=== PATIENT | male | born 1975 | race American Indian/Alaskan Native ===

== ENCOUNTER 2017-10-09 18:53 | Emergency (ER) | payer OTHER ==
[2017-10-09 19:07] VITALS: BP 147/99
[2017-10-09 19:30] LABS: Basophils % (Auto) 1.2 % (0.0-1.8); Eosinophils % (Auto) 2.5 % (0.0-4.3); Hematocrit 42.1 % (35.5-45.6); Hemoglobin 13.8 gm/dl (11.8-15.2); Mean Corpuscular HGB Conc 33 % (32-34); Mean Corpuscular Hemoglobin 29 pg (28-32); Mean Corpuscular Volume 88 fl (84-94); Platelet Count 294 K/mm3 (140-440); Red Blood Count 4.81 M/mm3 (3.65-5.03); Red Cell Distribution Width 14.3 % (13.2-15.2); White Blood Count 7.1 K/mm3 (4.5-11.0)
[2017-10-09 19:44] LABS: Anion Gap 22 mmol/L; BUN/Creatinine Ratio 14; Blood Urea Nitrogen 14 mg/dL (9-20); Calcium 9.8 mg/dL (8.4-10.2); Carbon Dioxide 28 mmol/L (22-30); Chloride 96.8 mmol/L (98-107); Glucose 96 mg/dL (75-100); Potassium 4.5 mmol/L (3.6-5.0); Sodium 142 mmol/L (137-145)
== END 2017-10-09 21:13 | disposition left against medical advice (07) ==
LOC: ED 18:53
DX: R07.9 Chest pain, unspecified (principal); Z53.21 Procedure and treatment not carried out due to patient leaving prior to being seen by health care provider
CPT/HCPCS: 36415; 80048; 84484; 85025; 93005; 93010

== ENCOUNTER 2017-12-01 19:32 | Emergency (ER) | payer SELFPAY | END 2017-12-01 20:40 | disposition left against medical advice (07) | LOC: ED 19:32 | DX: R03.0 Elevated blood-pressure reading, without diagnosis of hypertension (principal); Z53.21 Procedure and treatment not carried out due to patient leaving prior to being seen by health care provider ==

== ENCOUNTER 2018-05-03 17:20 | Emergency (ER) | payer SELFPAY ==
[2018-05-03 17:29] VITALS: BP 134/91
[2018-05-03] MEDS ORDERED: BENADRYL PO ONE (18:12)
[2018-05-03] MEDS ORDERED: REGLAN PO ONE (18:12)
[2018-05-03] MEDS ORDERED: MOTRIN PO ONE (18:12)
[2018-05-03] MEDS ORDERED: DECADRON PO ONE (18:13)
--- NOTE | 2018-05-03 18:21 | Emergency Department Report ---
ED Headache HPI - General Chief Complaint: Headache Stated Complaint: HEADACHE/BLURRED VISION Time Seen by Provider: 05/03/18 17:38 Source: patient Exam Limitations: no limitations - History of Present Illness Initial Comments: Mr Griffin is a 42 year-old man with hx of HTN who presents with MCLEOD. Frontal MCLEOD for about 2 days. Worse this morning and today. has beenhavign allergies and sinus congestion. Hurts above his eyes. No weakness, no tingling. Has some "blurred vision that corrects when i refocus." No other complaints. No fever. Timing/Duration: 24 hours Quality: mild, moderate Head Injury Location: frontal Recent Head Trauma: no recent headache/trauma Associated Symptoms: nasal congestion, nasal drainage, sinus infection Allergies/Adverse Reactions: Allergies sulfamethoxazole [From Bactrim] Allergy (Verified 05/03/18 17:27) Itching trimethoprim [From Bactrim] Allergy (Verified 05/03/18 17:27) Itching Home Medications: Ambulatory Orders Fluticasone [Flonase] 1 spray NS QDAY #1 bottle 12/02/15 Amoxicillin/K Clav Tab [Augmentin 875 mg] 1 tab PO Q12HR #20 tab 01/01/16 ED Review of Systems ROS: Stated complaint: HEADACHE/BLURRED VISION Other details as noted in HPI Comment: All other systems reviewed and negative ED Past Medical Hx - Past Medical History Previous Medical History?: Yes Hx Hypertension: Yes Hx CVA: No Hx Heart Attack/AMI: No Hx Congestive Heart Failure: No Hx Diabetes: No Hx Deep Vein Thrombosis: No Hx Pulmonary Embolism: No Hx GERD: No Hx Asthma: Yes - Surgical History Past Surgical History?: Yes Additional Surgical History: hernia repair - Social History Smoking Status: Never Smoker Substance Use Type: Alcohol - Medications Home Medications: Home Medications Medication Instructions Recorded Confirmed Last Taken Type Fluticasone [Flonase] 1 spray NS QDAY #1 bottle 12/02/15 01/01/16 12/30/15 06: 00 Rx Amoxicillin/K Clav Tab [Augmentin 1 tab PO Q12HR #20 tab 01/01/16 Unknown Rx 875 mg] ED Physical Exam - General Limitations: No Limitations General appearance: alert, in no apparent distress - Head Head exam: Present: atraumatic, normocephalic, normal inspection - Eye Eye exam: Present: normal appearance, PERRL, EOMI, conjunctival injection. Absent: scleral icterus - ENT ENT exam: Present: normal exam, normal orophraynx, mucous membranes moist, other (mild ttp over frontal sinuses) - Neck Neck exam: Present: normal inspection. Absent: tenderness, meningismus, lymphadenopathy, thyromegaly - Respiratory Respiratory exam: Present: normal lung sounds bilaterally, respiratory distress - Cardiovascular Cardiovascular Exam: Present: regular rate, normal rhythm - Extremities Exam Extremities exam: Present: normal inspection. Absent: tenderness - Neurological Exam Neurological exam: Present: alert, oriented X3, CN II-XII intact, normal gait. Absent: motor sensory deficit - Psychiatric Psychiatric exam: Present: normal affect, normal mood - Skin Skin exam: Present: warm, dry, intact ED Course Vital Signs 05/03/18 17:27 Temperature 98.2 F Pulse Rate 72 Respiratory 18 Rate Blood Pressure 134/91 O2 Sat by Pulse 98 Oximetry ED Medical Decision Making - Medical Decision Making Mr Mello is a 42 year-old man who presents with MCLEOD. MCLEOD for two days. Worse today. no neuro symptoms. Frontal MCLEOD. Has been having sinus pressure, congestion , allergies. Recently treated for sinus infection. No fever. Exam with mild forehead TTP. Mild conjunctival injection. neuro intact. Suspect this is sinus headache. Much less likely mass or bleed based on history and risk factors. no neuro symptoms or deficit. (baseline worse vision in L eye, not wearing his glasses). Given MCLEOD cocktail. Recommend taking OTC antihistamine as he is recommended but has not been taking. Also discussed using nasal rinse to sinusitis, allergic rhinitis and sinus headaches. Reports feeling better. DC to home with care plan as above. he and his endorse understanding of what was done today, and that we did not pursue imaging or labs, as they are not indicated today. He will return for change in symptoms. Critical care attestation.: If time is entered above; I have spent that time in minutes in the direct care of this critically ill patient, excluding procedure time. ED Disposition Clinical Impression: Sinus headache Disposition: DC-01 TO HOME OR SELFCARE Is pt being admited?: No Condition: Stable Instructions: Loratadine (By mouth), Sinusitis (ED), Acute Headache (ED) Referrals: PRIMARY CARE,MD [Primary Care Provider] - 3-5 Days
== END 2018-05-03 18:58 | disposition home or self-care (01) ==
LOC: ED 17:20
DX: R51 Headache (principal); R09.81 Nasal congestion; H53.8 Other visual disturbances; I10 Essential (primary) hypertension; J45.909 Unspecified asthma, uncomplicated; Z88.2 Allergy status to sulfonamides
CPT/HCPCS: 99282; J8540

== ENCOUNTER 2018-08-01 07:31 | Emergency (ER) | payer SELFPAY ==
[2018-08-01 08:00] VITALS: BP 146/98
--- NOTE | 2018-08-01 10:06 | Emergency Department Report ---
ED General Adult HPI - General Chief complaint: High BP Stated complaint: BLOOD PRESSURE Time Seen by Provider: 08/01/18 09:58 Source: patient Mode of arrival: Ambulatory Limitations: No Limitations - History of Present Illness Initial comments: Patient presents to the emergency department with a chief complaint of hypertension. Patient states he is on amlodipine 10 mg daily has been out of his medication for the last couple days and will not be able to see his physician anytime soon. -: Gradual Radiation: non-radiation Severity scale (0 -10): 0 Consistency: constant Improves with: none Worsens with: none Associated Symptoms: denies other symptoms Treatments Prior to Arrival: none - Related Data Previous Rx's Medication Instructions Recorded Last Taken Type Fluticasone [Flonase] 1 spray NS QDAY #1 bottle 12/02/15 12/30/15 06:00 Rx Amoxicillin/K Clav Tab [Augmentin 1 tab PO Q12HR #20 tab 01/01/16 Unknown Rx 875 mg] amLODIPine [Norvasc] 10 mg PO DAILY #30 tab 08/01/18 Unknown Rx Allergies Allergy/AdvReac Type Severity Reaction Status Date / Time sulfamethoxazole Allergy Itching Verified 05/03/18 17:27 [From Bactrim] trimethoprim [From Bactrim] Allergy Itching Verified 05/03/18 17:27 ED Review of Systems ROS: Stated complaint: BLOOD PRESSURE Other details as noted in HPI Comment: All other systems reviewed and negative Constitutional: denies: chills, fever Eyes: denies: eye pain, eye discharge, vision change ENT: denies: ear pain, throat pain Respiratory: denies: cough, shortness of breath, wheezing Cardiovascular: denies: chest pain, palpitations Endocrine: no symptoms reported Gastrointestinal: denies: abdominal pain, nausea, diarrhea Genitourinary: denies: urgency, dysuria Musculoskeletal: denies: back pain, joint swelling, arthralgia Skin: denies: rash, lesions Neurological: denies: headache, weakness, paresthesias Psychiatric: denies: anxiety, depression Hematological/Lymphatic: denies: easy bleeding, easy bruising ED Past Medical Hx - Past Medical History Hx Hypertension: Yes Hx CVA: No Hx Heart Attack/AMI: No Hx Congestive Heart Failure: No Hx Diabetes: No Hx Deep Vein Thrombosis: No Hx Pulmonary Embolism: No Hx GERD: No Hx Asthma: Yes - Surgical History Additional Surgical History: hernia repair - Social History Substance Use Type: Alcohol - Medications Home Medications: Home Medications Medication Instructions Recorded Confirmed Last Taken Type Fluticasone [Flonase] 1 spray NS QDAY #1 bottle 12/02/15 01/01/16 12/30/15 06: 00 Rx Amoxicillin/K Clav Tab [Augmentin 1 tab PO Q12HR #20 tab 01/01/16 Unknown Rx 875 mg] amLODIPine [Norvasc] 10 mg PO DAILY #30 tab 08/01/18 Unknown Rx ED Physical Exam - General Limitations: No Limitations General appearance: alert, in no apparent distress - Head Head exam: Present: atraumatic, normocephalic - Eye Eye exam: Present: normal appearance, PERRL, EOMI - ENT ENT exam: Present: mucous membranes moist - Neck Neck exam: Present: normal inspection - Respiratory Respiratory exam: Present: normal lung sounds bilaterally. Absent: respiratory distress, wheezes, rales, rhonchi - Cardiovascular Cardiovascular Exam: Present: regular rate, normal rhythm. Absent: systolic murmur, diastolic murmur, rubs, gallop - GI/Abdominal GI/Abdominal exam: Present: soft, normal bowel sounds. Absent: distended, tenderness - Rectal Rectal exam: Present: deferred - Extremities Exam Extremities exam: Present: normal inspection - Back Exam Back exam: Present: normal inspection - Neurological Exam Neurological exam: Present: alert, oriented X3, CN II-XII intact. Absent: motor sensory deficit - Psychiatric Psychiatric exam: Present: normal affect, normal mood - Skin Skin exam: Present: warm, dry, intact, normal color. Absent: rash ED Course Vital Signs 08/01/18 07:56 Temperature 98.3 F Pulse Rate 71 Respiratory 17 Rate Blood Pressure 146/98 O2 Sat by Pulse 98 Oximetry ED Medical Decision Making - Medical Decision Making Discussed plan of care with patient Patient had a prescription bottle present which was empty with the prescribing physician being Dr. Rizvi of [facility] Critical care attestation.: If time is entered above; I have spent that time in minutes in the direct care of this critically ill patient, excluding procedure time. ED Disposition Clinical Impression: Hypertension Disposition: DC- TO HOME OR SELFCARE Is pt being admited?: No Does the pt Need Aspirin: No Condition: Stable Instructions: Hypertension (ED) Additional Instructions: return if worse Prescriptions: amLODIPine [Norvasc] 10 mg PO DAILY #30 tab Referrals: PRIMARY CARE, [Primary Care Provider] - 3-5 Days Forms: Work/School Release Form(ED) Time of Disposition: 10:04
== END 2018-08-01 10:14 | disposition home or self-care (01) ==
LOC: ED 07:31
DX: I10 Essential (primary) hypertension (principal); J45.909 Unspecified asthma, uncomplicated; Z88.2 Allergy status to sulfonamides; Z79.899 Other long term (current) drug therapy
CPT/HCPCS: 99281

== ENCOUNTER → 2018-12-05 18:25 | Emergency (ER) | payer SELFPAY | END | disposition left against medical advice (07) | LOC: ED 18:25 ==

== ENCOUNTER 2018-12-27 14:03 | Emergency (ER) | payer SELFPAY ==
[2018-12-27 14:16] VITALS: BP 135/94
--- NOTE | 2018-12-27 14:16 | Emergency Department Report ---
Blank Doc - Documentation Documentation: C/O sinus pressure and dizziness and slight headache started today. Hx/o HTN. 03/09. This initial assessment diagnostic orders/clinical plan/treatment (s) is/Are subject change based on patient's health status, clinical progression and re- assessment by fellow clinical providers in the ED. Further treatment and work-up at subsequent clinical providers discretion. Patient/guardians urged not to elope from s their condition may be serious if not clinically assessed and lori metzger. Inital order include:
[2018-12-27] MEDS ORDERED: SUDAFED PO PRN (15:53)
[2018-12-27] MEDS ORDERED: ANTIVERT PO ONE (15:54)
[2018-12-27 16:38] LABS: Hematocrit 43.5 % (35.5-45.6); Hemoglobin 14.6 gm/dl (11.8-15.2); Mean Corpuscular HGB Conc 34 % (32-34); Mean Corpuscular Volume 86 fl (84-94); Platelet Count 305 K/mm3 (140-440); Red Blood Count 5.07 M/mm3 (3.65-5.03); Red Cell Distribution Width 14.7 % (13.2-15.2)
[2018-12-27 16:52] LABS: BUN/Creatinine Ratio 13; Blood Urea Nitrogen 13 mg/dL (9-20); Calcium 9.4 mg/dL (8.4-10.2); Hemolysis Index 2
--- NOTE | 2018-12-27 17:07 | Emergency Department Report ---
ED ENT HPI - General Chief complaint: Dizziness Stated complaint: DIZZY/SINUS PRESSURE Time Seen by Provider: 12/27/18 14:14 Source: patient Mode of arrival: Ambulatory Limitations: No Limitations - History of Present Illness Initial comments: he is a 44-year-old male with a history of high blood pressure controlled with medication who presents to ED complaining of facial sinus pressure that is causing him some dizziness that started this morning. Patient states he feels facial heaviness for the past 2 days and this morning he woke up and felt a li ttle dizzy. Patient states that he is to room spinning and which resolved after a short period of time. He denies fevers/chills/trauma/headache shortness of breath blurry vision or any other problems. - Related Data Previous Rx's Medication Instructions Recorded Last Taken Type Fluticasone [Flonase] 1 spray NS QDAY #1 bottle 12/02/15 12/30/15 06:00 Rx Amoxicillin/K Clav Tab [Augmentin 1 tab PO Q12HR #20 tab 01/01/16 Unknown Rx 875 mg] amLODIPine [Norvasc] 10 mg PO DAILY #30 tab 08/01/18 Unknown Rx amLODIPine [Norvasc] 10 mg PO DAILY #30 tab 08/31/18 Unknown Rx Meclizine [Antivert] 25 mg PO DAILY #20 tablet 12/27/18 Unknown Rx Pseudoephedrine [Sudafed] 60 mg PO Q8H PRN #30 tablet 12/27/18 Unknown Rx Allergies Allergy/AdvReac Type Severity Reaction Status Date / Time sulfamethoxazole Allergy Itching Verified 12/27/18 18:09 [From Bactrim] trimethoprim [From Bactrim] Allergy Itching Verified 12/27/18 18:09 ED Dental HPI - General Chief complaint: Dizziness Stated complaint: DIZZY/SINUS PRESSURE Time Seen by Provider: 12/27/18 14:14 Source: patient Mode of arrival: Ambulatory Limitations: No Limitations - Related Data Previous Rx's Medication Instructions Recorded Last Taken Type Fluticasone [Flonase] 1 spray NS QDAY #1 bottle 12/02/15 12/30/15 06:00 Rx Amoxicillin/K Clav Tab [Augmentin 1 tab PO Q12HR #20 tab 01/01/16 Unknown Rx 875 mg] amLODIPine [Norvasc] 10 mg PO DAILY #30 tab 08/01/18 Unknown Rx amLODIPine [Norvasc] 10 mg PO DAILY #30 tab 08/31/18 Unknown Rx Meclizine [Antivert] 25 mg PO DAILY #20 tablet 12/27/18 Unknown Rx Pseudoephedrine [Sudafed] 60 mg PO Q8H PRN #30 tablet 12/27/18 Unknown Rx Allergies Allergy/AdvReac Type Severity Reaction Status Date / Time sulfamethoxazole Allergy Itching Verified 12/27/18 18:09 [From Bactrim] trimethoprim [From Bactrim] Allergy Itching Verified 12/27/18 18:09 ED Review of Systems ROS: Stated complaint: DIZZY/SINUS PRESSURE Other details as noted in HPI Comment: All other systems reviewed and negative ED Past Medical Hx - Past Medical History Hx Hypertension: Yes Hx CVA: No Hx Heart Attack/AMI: No Hx Congestive Heart Failure: No Hx Diabetes: No Hx Deep Vein Thrombosis: No Hx Pulmonary Embolism: No Hx GERD: No Hx Asthma: Yes - Surgical History Additional Surgical History: hernia repair - Social History Smoking Status: Never Smoker Substance Use Type: Alcohol - Medications Home Medications: Home Medications Medication Instructions Recorded Confirmed Last Taken Type Fluticasone [Flonase] 1 spray NS QDAY #1 bottle 12/02/15 01/01/16 12/30/15 06:00 Rx Amoxicillin/K Clav Tab [Augmentin 1 tab PO Q12HR #20 tab 01/01/16 Unknown Rx 875 mg] amLODIPine [Norvasc] 10 mg PO DAILY #30 tab 08/01/18 Unknown Rx amLODIPine [Norvasc] 10 mg PO DAILY #30 tab 08/31/18 Unknown Rx Meclizine [Antivert] 25 mg PO DAILY #20 tablet 12/27/18 Unknown Rx Pseudoephedrine [Sudafed] 60 mg PO Q8H PRN #30 tablet 12/27/18 Unknown Rx ED Physical Exam - General Limitations: No Limitations General appearance: alert, in no apparent distress - Head Head exam: Present: atraumatic, normocephalic - Eye Eye exam: Present: normal appearance, PERRL, EOMI Pupils: Present: normal accommodation - ENT ENT exam: Present: mucous membranes moist - Neck Neck exam: Present: normal inspection, full ROM. Absent: tenderness, meningismus, lymphadenopathy - Respiratory Respiratory exam: Present: normal lung sounds bilaterally. Absent: respiratory distress, wheezes, rales - Cardiovascular Cardiovascular Exam: Present: regular rate, normal rhythm. Absent: systolic murmur, diastolic murmur, rubs, gallop - GI/Abdominal GI/Abdominal exam: Present: soft, normal bowel sounds - Rectal Rectal exam: Present: deferred - Extremities Exam Extremities exam: Present: normal inspection - Back Exam Back exam: Present: normal inspection - Neurological Exam Neurological exam: Present: alert, oriented X3, normal gait - Psychiatric Psychiatric exam: Present: normal affect, normal mood - Skin Skin exam: Present: warm, dry, intact, normal color. Absent: rash ED Course Vital Signs 12/27/18 14:14 Temperature 98.2 F Pulse Rate 92 H Respiratory 18 Rate Blood Pressure 135/94 O2 Sat by Pulse 97 Oximetry ED Medical Decision Making - Lab Data Result diagrams: 12/27/18 16:22 12/27/18 16:22 - Medical Decision Making 43-year-old male presents with sinusitis/dizziness Symptoms resolved during the ED stay. Patient did not have an episode of dizziness in the ED. Meclizine and Sudafed during the ED. Patient has a neuro deficit. Patient is able to speak in clear sentences. Discussed follow-up with his primary care physician. Discussed if symptoms worsen to return ED. NIHHS scale : 0 points Critical care attestation.: If time is entered above; I have spent that time in minutes in the direct care of this critically ill patient, excluding procedure time. ED Disposition Clinical Impression: Sinusitis, Dizziness, nonspecific Disposition: DC-01 TO HOME OR SELFCARE Is pt being admited?: No Does the pt Need Aspirin: No Condition: Stable Instructions: Sinusitis (ED), Vertigo (ED), Dizziness (ED) Additional Instructions: Make sure to follow up with the primary care physician as discussed. Take all your medications as you've been prescribed. If you have any worsening symptoms or develop new symptoms please return to ED immediately. Prescriptions: Meclizine [Antivert] 25 mg PO DAILY #20 tablet Pseudoephedrine [Sudafed] 60 mg PO Q8H PRN #30 tablet PRN Reason: Nasal Congestion Referrals: ARTHUR VELASQUEZ MD [Primary Care Provider] - 3-5 Days Forms: Accompanied Note, Work/School Release Form(ED) Time of Disposition: 17:22
== END 2018-12-27 17:31 | disposition home or self-care (01) ==
LOC: ED 14:03
DX: J01.90 Acute sinusitis, unspecified (principal); I10 Essential (primary) hypertension; J45.909 Unspecified asthma, uncomplicated; Z79.899 Other long term (current) drug therapy
CPT/HCPCS: 36415; 80048; 85027; 99283

== ENCOUNTER 2018-12-27 18:08 | Emergency (ER) | payer SELFPAY ==
[2018-12-27 18:40] VITALS: BP 160/94
--- NOTE | 2018-12-27 18:41 | Emergency Department Report ---
Blank Doc - Documentation Documentation: Patient was just DC at 1700 and is now back for CP. CP that [id number]. CP li ttle sharp that is intermittent. No radiation. Slight nausea. This initial assessment diagnostic orders/clinical plan/treatment (s) is/Are subject change based on patient's health status, clinical progression and re- assessment by fellow clinical providers in the ED. Further treatment and work-up at subsequent clinical providers discretion. Patient/guardians urged not to elope from s their condition may be serious if not clinically assessed and managed. Inital order include:
[2018-12-27 19:07] LABS: Basophils # (Auto) 0.1 K/mm3 (0.0-0.1); Basophils % (Auto) 1.2 % (0.0-1.8); Eosinophils # (Auto) 0.1 K/mm3 (0.0-0.4); Eosinophils % (Auto) 2.3 % (0.0-4.3); Hematocrit 41.4 % (35.5-45.6); Lymphocytes # (Auto) 1.7 K/mm3 (1.2-5.4); Lymphocytes % (Auto) 26.7 % (13.4-35.0); Mean Corpuscular HGB Conc 34 % (32-34); Mean Corpuscular Volume 85 fl (84-94); Monocytes # (Auto) 0.4 K/mm3 (0.0-0.8); Monocytes % (Auto) 5.8 % (0.0-7.3); Platelet Count 306 K/mm3 (140-440); Red Blood Count 4.87 M/mm3 (3.65-5.03); Red Cell Distribution Width 14.4 % (13.2-15.2)
[2018-12-27 19:28] LABS: Alanine Aminotransferase 22 units/L (7-56); Albumin 4.4 g/dL (3.9-5); BUN/Creatinine Ratio 13; Blood Urea Nitrogen 12 mg/dL (9-20); Calcium 9.3 mg/dL (8.4-10.2); Hemolysis Index 10
--- NOTE | 2018-12-27 21:05 | XRay Report ---
FINAL REPORT PROCEDURE: XR CHEST ROUTINE 2V TECHNIQUE: PA and lateral chest radiographs were obtained. CPT 79644 HISTORY: Chest pain COMPARISON: No prior studies are available for comparison. FINDINGS: Heart: Normal. Mediastinum/Vessels: Normal. Lungs/Pleural space: No infiltrate, effusion, or pneumothorax. Bony thorax: No acute osseous abnormality. Other: IMPRESSION: No radiographic evidence of acute abnormality.
--- NOTE | 2018-12-27 23:36 | Emergency Department Report ---
ED General Adult HPI - General Chief complaint: Chest Pain Stated complaint: CHEST PAIN Time Seen by Provider: 12/27/18 18:36 Source: patient Mode of arrival: Ambulatory Limitations: No Limitations - History of Present Illness Initial comments: 43-year-old -[place] male with past medical history of asthma and hypertension presents to the emergency department after being recently discharged complaining of chest ache to the middle of the chest, lasting for a few moments. This was associated with a crampy sensation but denies any headache, fever, chills, sweats, hemoptysis, hematemesis, presyncope, coryza, numbness or tingling. He was just seen in the emergency department for dizziness, but none was was present with the chest pain. Location: chest Radiation: non-radiation Severity scale (0 -10): 5 Improves with: none Worsens with: none Associated Symptoms: chest pain. denies: cough, diaphoresis, fever/chills, headaches, loss of appetite, malaise, nausea/vomiting, shortness of breath, syncope, weakness Treatments Prior to Arrival: none - Related Data Previous Rx's Medication Instructions Recorded Last Taken Type Fluticasone [Flonase] 1 spray NS QDAY #1 bottle 12/02/15 12/30/15 06:00 Rx Amoxicillin/K Clav Tab [Augmentin 1 tab PO Q12HR #20 tab 01/01/16 Unknown Rx 875 mg] amLODIPine [Norvasc] 10 mg PO DAILY #30 tab 08/01/18 Unknown Rx amLODIPine [Norvasc] 10 mg PO DAILY #30 tab 08/31/18 Unknown Rx Meclizine [Antivert] 25 mg PO DAILY #20 tablet 12/27/18 Unknown Rx Pseudoephedrine [Sudafed] 60 mg PO Q8H PRN #30 tablet 12/27/18 Unknown Rx Allergies Allergy/AdvReac Type Severity Reaction Status Date / Time sulfamethoxazole Allergy Itching Verified 12/27/18 18:09 [From Bactrim] trimethoprim [From Bactrim] Allergy Itching Verified 12/27/18 18:09 ED Review of Systems ROS: Stated complaint: CHEST PAIN Other details as noted in HPI Constitutional: denies: chills, fever Eyes: denies: eye pain, eye discharge, vision change ENT: denies: ear pain, throat pain Respiratory: denies: cough, shortness of breath, wheezing Cardiovascular: chest pain. denies: palpitations Endocrine: no symptoms reported Gastrointestinal: denies: abdominal pain, nausea, diarrhea Genitourinary: denies: urgency, dysuria Musculoskeletal: denies: back pain, joint swelling, arthralgia Skin: denies: rash, lesions Neurological: denies: headache, weakness, paresthesias Psychiatric: denies: anxiety, depression Hematological/Lymphatic: denies: easy bleeding, easy bruising ED Past Medical Hx - Past Medical History Hx Hypertension: Yes Hx CVA: No Hx Heart Attack/AMI: No Hx Congestive Heart Failure: No Hx Diabetes: No Hx Deep Vein Thrombosis: No Hx Pulmonary Embolism: No Hx GERD: No Hx Asthma: Yes - Surgical History Additional Surgical History: hernia repair - Social History Smoking Status: Never Smoker Substance Use Type: Alcohol - Medications Home Medications: Home Medications Medication Instructions Recorded Confirmed Last Taken Type Fluticasone [Flonase] 1 spray NS QDAY #1 bottle 12/02/15 01/01/16 12/30/15 06:00 Rx Amoxicillin/K Clav Tab [Augmentin 1 tab PO Q12HR #20 tab 01/01/16 Unknown Rx 875 mg] amLODIPine [Norvasc] 10 mg PO DAILY #30 tab 08/01/18 Unknown Rx amLODIPine [Norvasc] 10 mg PO DAILY #30 tab 08/31/18 Unknown Rx Meclizine [Antivert] 25 mg PO DAILY #20 tablet 12/27/18 Unknown Rx Pseudoephedrine [Sudafed] 60 mg PO Q8H PRN #30 tablet 12/27/18 Unknown Rx ED Physical Exam - General Limitations: No Limitations General appearance: alert, in no apparent distress - Head Head exam: Present: atraumatic, normocephalic - Eye Eye exam: Present: normal appearance, PERRL, EOMI Pupils: Present: normal accommodation - ENT ENT exam: Present: normal exam, normal orophraynx, mucous membranes moist, TM's normal bilaterally - Neck Neck exam: Present: normal inspection, full ROM - Respiratory Respiratory exam: Present: normal lung sounds bilaterally. Absent: respiratory distress, wheezes, rales, rhonchi, chest wall tenderness, accessory muscle use, decreased breath sounds - Cardiovascular Cardiovascular Exam: Present: regular rate, normal rhythm. Absent: systolic murmur, diastolic murmur, rubs, gallop - GI/Abdominal GI/Abdominal exam: Present: soft, normal bowel sounds. Absent: tenderness, guarding, hyperactive bowel sounds, hypoactive bowel sounds, organomegaly - Rectal Rectal exam: Present: deferred - Extremities Exam Extremities exam: Present: normal inspection, full ROM, normal capillary refill. Absent: pedal edema, joint swelling - Back Exam Back exam: Present: normal inspection - Neurological Exam Neurological exam: Present: alert, oriented X3 - Psychiatric Psychiatric exam: Present: normal affect, normal mood - Skin Skin exam: Present: warm, dry, intact, normal color. Absent: rash ED Course Vital Signs 12/27/18 18:38 Temperature 97.1 F L Pulse Rate 88 Respiratory 18 Rate Blood Pressure 160/94 O2 Sat by Pulse 97 Oximetry ED Medical Decision Making - Lab Data Result diagrams: 12/27/18 18:49 12/27/18 18:49 - EKG Data EKG shows normal: sinus rhythm Rate: normal - EKG Data Interpretation: normal EKG - Medical Decision Making All discussed with Mr. Perdomo about this. His EKG, which we reviewed together and laboratory findings or lack thereof. Advised him of the need to follow-up with cardiology for a stress test. He expressed an understanding and states that he would do so felt comfortable doing so. He does have a primary care doctor enforced part. He had no problem obtaining a follow-up Critical care attestation.: If time is entered above; I have spent that time in minutes in the direct care of this critically ill patient, excluding procedure time. ED Disposition Clinical Impression: Chest pain Disposition: DC-01 TO HOME OR SELFCARE Is pt being admited?: No Does the pt Need Aspirin: No Condition: Stable Instructions: Chest Pain (ED) Referrals: ARTHUR VELASQUEZ MD [Primary Care Provider] - 3-5 Days MINESH MAGUIRE MD [Staff Physician] - 3-5 Days
== END 2018-12-27 23:59 | disposition home or self-care (01) ==
LOC: ED 18:08
DX: R07.89 Other chest pain (principal); I10 Essential (primary) hypertension; J45.909 Unspecified asthma, uncomplicated; Z79.899 Other long term (current) drug therapy; Z88.2 Allergy status to sulfonamides
CPT/HCPCS: 36415; 71046; 80053; 84484; 85025; 93005; 93010; 99283

== ENCOUNTER 2019-07-08 20:41 | Emergency (ER) | payer SELFPAY ==
[2019-07-08] MEDS ORDERED: ASPIRIN PO ONE (20:51)
--- NOTE | 2019-07-08 20:52 | Event Note ---
ED Screening Note Date of service: 07/08/19 Time: 20:49 ED Screening Note: 43 y o male presents with chest pain x today describes as intermittent and dull pressure type pain no URI sx This initial assessment/diagnostic orders/clinical plan/treatment(s) is/are subject to change based on patients health status, clinical progression and re- assessment by fellow clinical providers in the ED. Further treatment and workup at subsequent clinical providers discretion. Patient/guardian urged not to elope from the ED as their condition may be serious if not clinically assessed and managed. Initial orders include: ekg, labs,cxr
--- NOTE | 2019-07-08 21:31 | XRay Report ---
CHEST PA AND LATERAL VIEWS INDICATION: Chest Pain. COMPARISON: 12/27/2018 FINDINGS: Support devices: None Heart: Normal and unchanged Lungs/Pleura: No acute pulmonary or pleural findings. IMPRESSION: 1. No significant abnormality and no interval change. Signer Name: Emeterio Godinez MD Signed: 07/08/2019 9:27 PM Workstation Name: [id number]
[2019-07-08 21:32] LABS: Basophils # (Auto) 0.1 K/mm3 (0.0-0.1); Basophils % (Auto) 1.4 % (0.0-1.8); Eosinophils # (Auto) 0.4 K/mm3 (0.0-0.4); Eosinophils % (Auto) 7.2 % (0.0-4.3); Hematocrit 40.5 % (35.5-45.6); Hemoglobin 13.6 gm/dl (11.8-15.2); Lymphocytes # (Auto) 1.9 K/mm3 (1.2-5.4); Lymphocytes % (Auto) 32.5 % (13.4-35.0); Mean Corpuscular HGB Conc 34 % (32-34); Mean Corpuscular Volume 86 fl (84-94); Monocytes # (Auto) 0.5 K/mm3 (0.0-0.8); Monocytes % (Auto) 8.6 % (0.0-7.3); Platelet Count 270 K/mm3 (140-440); Red Blood Count 4.71 M/mm3 (3.65-5.03); Red Cell Distribution Width 14.7 % (13.2-15.2)
[2019-07-08 21:58] LABS: BUN/Creatinine Ratio 12; Blood Urea Nitrogen 17 mg/dL (9-20); Calcium 9.1 mg/dL (8.4-10.2); Hemolysis Index 6
[2019-07-08] MEDS ORDERED: ASPIRIN ONE (23:19)
--- NOTE | 2019-07-09 00:31 | Emergency Department Report ---
ED Chest Pain HPI - General Chief Complaint: Chest Pain Stated Complaint: DIZZINESS,LIGHTHEADED,CHEST PAIN Time Seen by Provider: 07/08/19 20:49 Source: patient, family Mode of arrival: Ambulatory Limitations: No Limitations - History of Present Illness Initial Comments: This is a 43-year-old male here complaining of chest pain on and off he said it started a couple years ago but he had recurrence of chest pain today to midsternal area that feels dull. History of acid reflux. Patient is a history of hypertension. He reports that this he does a primary care doctor who is Dr. Woods but he never mentioned in chest pain to his primary care doctor. Denies any difficulty breathing and or nausea or vomiting. Denies any radiation of pain to extremity. He said he feels a little lightheaded and dizzy. Patient takes blood pressure medication and he also has a history of asthma with surgical history of hernia repair. Chest pain is intermittent 3/10. Denies any cough and, runny nose or sore throat MD Complaint: chest pain, other (difficulty breathing) -: This evening Onset: during rest Pain Location: other (mid chest) Pain Radiation: none Severity: mild Severity scale (0 -10): 3 Quality: dull Consistency: intermittent Improves With: nothing Worsens With: nothing Context: other (previous history of chest pain) re: denies: nausea, vomting, diaphoresis, dyspnea, sense of impending doom Other Symptoms: burping. denies: cough, fever, syncope, rash, leg swelling, palpitations Treatments Prior to Arrival: none Aspirin use within the Past 7 Days: (0) No - Related Data On Oral Contraceptives: No Previous Rx's Medication Instructions Recorded Last Taken Type Fluticasone [Flonase] 1 spray NS QDAY #1 bottle 12/02/15 12/30/15 06:00 Rx Amoxicillin/K Clav Tab [Augmentin 1 tab PO Q12HR #20 tab 01/01/16 Unknown Rx 875 mg] amLODIPine [Norvasc] 10 mg PO DAILY #30 tab 08/01/18 Unknown Rx amLODIPine [Norvasc] 10 mg PO DAILY #30 tab 08/31/18 Unknown Rx Meclizine [Antivert] 25 mg PO DAILY #20 tablet 12/27/18 Unknown Rx Pseudoephedrine [Sudafed] 60 mg PO Q8H PRN #30 tablet 12/27/18 Unknown Rx Aspirin EC 325 mg PO QDAY 30 Days #30 07/09/19 Unknown Rx tablet. Allergies Allergy/AdvReac Type Severity Reaction Status Date / Time sulfamethoxazole Allergy Itching Verified 12/27/18 18:09 [From Bactrim] trimethoprim [From Bactrim] Allergy Itching Verified 12/27/18 18:09 Heart Score - HEART Score History: Slightly suspicious EKG: Normal Age: < 45 Risk factors: 1-2 risk factors Troponin: < normal limit HEART Score: 1 - Critical Actions Critical Actions: 0-3 pts:0.9-1.7%risk of adverse cardiac event.Candidate for discharge ED Review of Systems ROS: Stated complaint: DIZZINESS,LIGHTHEADED,CHEST PAIN Other details as noted in HPI Constitutional: denies: chills, fever ENT: denies: throat pain, congestion Respiratory: denies: cough, shortness of breath, SOB with exertion, SOB at rest, wheezing Cardiovascular: chest pain, other (reports lightheaded). denies: palpitations, dyspnea on exertion, edema, syncope, paroxysmal nocturnal dyspnea Gastrointestinal: denies: abdominal pain, nausea, vomiting Genitourinary: denies: dysuria, hematuria Musculoskeletal: denies: back pain, joint swelling, arthralgia, myalgia Skin: denies: rash Neurological: denies: headache, weakness, numbness, paresthesias, confusion, abnormal gait, vertigo ED Past Medical Hx - Past Medical History Previous Medical History?: Yes Hx Hypertension: Yes Hx CVA: No Hx Heart Attack/AMI: No Hx Congestive Heart Failure: No Hx Diabetes: No Hx Deep Vein Thrombosis: No Hx Pulmonary Embolism: No Hx GERD: No Hx Asthma: Yes - Surgical History Past Surgical History?: Yes Additional Surgical History: hernia repair - Family History Family history: hypertension - Social History Smoking Status: Never Smoker Substance Use Type: None - Medications Home Medications: Home Medications Medication Instructions Recorded Confirmed Last Taken Type Fluticasone [Flonase] 1 spray NS QDAY #1 bottle 12/02/15 01/01/16 12/30/15 06:00 Rx Amoxicillin/K Clav Tab [Augmentin 1 tab PO Q12HR #20 tab 01/01/16 Unknown Rx 875 mg] amLODIPine [Norvasc] 10 mg PO DAILY #30 tab 08/01/18 Unknown Rx amLODIPine [Norvasc] 10 mg PO DAILY #30 tab 08/31/18 Unknown Rx Meclizine [Antivert] 25 mg PO DAILY #20 tablet 12/27/18 Unknown Rx Pseudoephedrine [Sudafed] 60 mg PO Q8H PRN #30 tablet 12/27/18 Unknown Rx Aspirin EC 325 mg PO QDAY 30 Days #30 07/09/19 Unknown Rx tablet. ED Physical Exam - General Limitations: No Limitations General appearance: alert, in no apparent distress - Head Head exam: Present: atraumatic, normocephalic, normal inspection - Eye Eye exam: Present: normal appearance, PERRL, EOMI Pupils: Present: normal accommodation - ENT ENT exam: Present: normal exam, normal orophraynx, mucous membranes moist, TM's normal bilaterally, normal external ear exam - Neck Neck exam: Present: normal inspection, full ROM. Absent: tenderness, lymphadenopathy - Respiratory Respiratory exam: Present: normal lung sounds bilaterally. Absent: respiratory distress, chest wall tenderness - Cardiovascular Cardiovascular Exam: Present: regular rate, normal rhythm, normal heart sounds. Absent: systolic murmur, diastolic murmur - GI/Abdominal GI/Abdominal exam: Present: soft, normal bowel sounds. Absent: distended, tenderness, guarding, rebound, rigid, organomegaly, mass, bruit, pulsatile mass - Extremities Exam Extremities exam: Present: normal inspection, full ROM, normal capillary refill, other (No cce. + 2 pulses in all extremities, no neurovascular compromise). Absent: tenderness, pedal edema, joint swelling, calf tenderness - Back Exam Back exam: Present: normal inspection, full ROM. Absent: tenderness, CVA tenderness (R), CVA tenderness (L), muscle spasm, paraspinal tenderness, vertebral tenderness, rash noted - Neurological Exam Neurological exam: Present: alert, oriented X3, normal gait - Psychiatric Psychiatric exam: Present: normal affect, normal mood - Skin Skin exam: Present: warm, dry, intact, normal color. Absent: rash ED Course Vital Signs 07/08/19 07/08/19 20:44 20:49 Temperature 98.6 F 98.6 F Pulse Rate 74 158 H Respiratory 18 18 Rate Blood Pressure 158/91 Blood Pressure 158/91 [Right] O2 Sat by Pulse 96 100 Oximetry - Reevaluation(s) Reevaluation #1: I collaborated with Dr. Cabrera and patient's presentation and heart score. 07/09/19 01:45 Patient is stable at present. Lab work stable, EKG stable chest x-ray stable troponin stable. Cardiac risk or and MATTHEW is 1 Reevaluation #2: 07/09/19 01:52 Patient is stable in no acute distress.PERC rule suggests no further workup needed for PE. Reevaluation #3: 07/09/19 03:45 Patient is stable and in no acute distress. I spoke with Dr. Prather and it was agreed upon that patient will be discharged and to follow-up with outpatient cardiology. I gave patient to Marissa who is a church secretary who will fact paperwork over to cardiology office and they will need to follow-up with patient in 48 hours. I also discussed with patient that he should call in the morning just to ensure that fax was received. He voiced understanding. Patient and cardiac risk scar less than 2 and MATTHEW is 0. PERC suggests no further testing needed. Patient is stable and in no acute distress and he voiced understanding. I told him to call his primary care in the morning and also to schedule an appointment for follow-up visit and he agrees. 07/09/19 03:58 MATTHEW score - Matthew Score Age > 65: (0) No Aspirin use within the Past 7 Days: (0) No 3 or more CAD Risk Factors: (0) No 2 or more Angina events in past 24 hrs: (0) No Known CAD with more than 50% Stenosis: (0) No Elevated Cardiac Markers: (0) No ST Deviation Greater than 0.5mm: (0) No MATTHEW Score: 0 ED Medical Decision Making - Lab Data Result diagrams: 07/08/19 21:18 07/08/19 21:18 Lab Results 07/08/19 07/08/19 07/08/19 Range/Units 21:18 21:18 23:50 WBC 5.8 (4.5-11.0) K/mm3 RBC 4.71 (3.65-5.03) M/mm3 Hgb 13.6 (11.8-15.2) gm/dl Hct 40.5 (35.5-45.6) % MCV 86 (84-94) fl MCH 29 (28-32) pg MCHC 34 (32-34) % RDW 14.7 (13.2-15.2) % Plt Count 270 (140-440) K/mm3 Lymph % (Auto) 32.5 (13.4-35.0) % Carbon % (Auto) 8.6 H (0.0-7.3) % Eos % (Auto) 7.2 H (0.0-4.3) % Baso % (Auto) 1.4 (0.0-1.8) % Lymph # 1.9 (1.2-5.4) K/mm3 Carbon # 0.5 (0.0-0.8) K/mm3 Eos # 0.4 (0.0-0.4) K/mm3 Baso # 0.1 (0.0-0.1) K/mm3 Seg Neutrophils % 50.3 (40.0-70.0) % Seg Neutrophils # 2.9 (1.8-7.7) K/mm3 Sodium 138 (137-145) mmol/L Potassium 3.6 (3.6-5.0) mmol/L Chloride 99.0 (98-107) mmol/L Carbon Dioxide 26 (22-30) mmol/L Anion Gap 17 mmol/L BUN 17 (9-20) mg/dL Creatinine 1.4 (0.8-1.5) mg/dL Estimated GFR > 60 ml/min BUN/Creatinine Ratio 12 % Glucose 120 H (75-100) mg/dL Calcium 9.1 (8.4-10.2) mg/dL Troponin T < 0.010 < 0.010 (0.00-0.029) ng/mL - EKG Data -: EKG Interpreted by Me (attending physician) EKG shows normal: sinus rhythm Rate: normal - EKG Data Interpretation: normal EKG - Radiology Data Radiology results: report reviewed Chest x-ray shows no significant abnormalities. This was dictated by radiologist and report reviewed by myself. At this time, I am unable to palpate x-ray report - Medical Decision Making This is a 43-year-old male here for chest pain that has been ongoing for 2 years and has a primary care doctor who he said he has not told about chest pain. Patient has not had any cardiac workup. He said his chest pain started today and he was just concerned and came to the hospital to be seen. Patient had troponin 2 which were negative, EKG stable, MATTHEW is 0 and her score is less than 2. I spoke with Dr. Prather and it was decided the patient can be seen by cardiology outpatient. Protocol for fax and fascia to Dr. ibanez to be seen in 48 hours was done. This was discussed with patient. He was given aspirin. He is not having any chest pain at present. CBC and BMP is stable troponin. I discussed with patient that if his chest pain return to return to the emergency room otherwise call his primary care in the morning to schedule an appointment and also cardiology to ensure that they got faxed and they will schedule an appointment with him for follow-up within 48 hours and he voiced understanding. Patient discharged home in stable condition with family member. - Differential Diagnosis ACS, PE, PNA, pleurisy, dyspepsia, chest pain unspecified Critical care attestation.: If time is entered above; I have spent that time in minutes in the direct care of this critically ill patient, excluding procedure time. ED Disposition Clinical Impression: Chest pain Qualifiers: Chest pain type: unspecified Qualified Code(s): R07.9 - Chest pain, unspecified Disposition: DC-01 TO HOME OR SELFCARE Is pt being admited?: No Does the pt Need Aspirin: No Condition: Stable Instructions: Chest Pain (ED) Additional Instructions: Please follow discharge instructions and follow-up with primary care doctor and cardiology. He should be getting a call from cardiology for follow-up visit to be seen within 48 hours. Please call in the morning to ensure that they did receive fax. If Chest Pain return, please return to the emergency room MICHELLE. Prescriptions: Aspirin EC 325 mg PO QDAY 30 Days #30 tablet. Referrals: BELLA ESPANA MD [Primary Care Provider] - 07/10/19 [facility] [Provider Group] - 07/10/19 Forms: Accompanied Note, Work/School Release Form(ED)
[2019-07-09 04:16] VITALS: BP 155/101
== END 2019-07-09 04:05 | disposition home or self-care (01) ==
LOC: ED 20:41
DX: R07.89 Other chest pain (principal); I10 Essential (primary) hypertension; J45.909 Unspecified asthma, uncomplicated; Z98.890 Other specified postprocedural states; Z79.899 Other long term (current) drug therapy; Z88.1 Allergy status to other antibiotic agents; Z88.2 Allergy status to sulfonamides
CPT/HCPCS: 36415; 71046; 80048; 84484; 85025; 93005; 93010; 99284

== ENCOUNTER 2019-10-22 15:54 | Emergency (ER) | payer SELFPAY | END 2019-10-23 06:26 | disposition home or self-care (01) | LOC: ED 15:54 | CPT/HCPCS: 36415; 71046; 80053; 84484; 85025; 93005; 93010; 96372; 99284; J1885 ==

== ENCOUNTER 2020-01-01 19:01 | Emergency (ER) | payer SELFPAY ==
[2020-01-01 19:15] VITALS: BP 162/100
--- NOTE | 2020-01-01 19:17 | Emergency Department Report ---
Blank Doc - Documentation Documentation: 44-year-old male that presents with heart palpation. This initial assessment/diagnostic orders/clinical plan/treatment(s) is/are subject to change based on patient's health status, clinical progression and re- assessment by fellow clinical providers in the ED. Further treatment and workup at subsequent clinical providers discretion. Patient/guardians urged not to elope from the ED as their condition may be serious if not clinically assessed and managed. Initial orders include: 1- Patient sent to [facility] for further evaluation and treatment 2- EKG 3- labs 4- CXR
--- NOTE | 2020-01-01 19:43 | XRay Report ---
CHEST 2 VIEWS INDICATION / CLINICAL INFORMATION: MAIN: Chest Pain; irregular heartbeat today; no known medical hx. COMPARISON: 10/22/2019 FINDINGS: SUPPORT DEVICES: None. HEART / MEDIASTINUM: No significant abnormality. LUNGS / PLEURA: No significant pulmonary or pleural abnormality. .No pneumothorax. ADDITIONAL FINDINGS: No significant additional findings. IMPRESSION: 1. No acute findings. Signer Name: William Gonzáles MD Signed: 01/01/2020 7:38 PM Workstation Name: [id number]
[2020-01-01 20:30] LABS: Basophils # (Auto) 0.1 K/mm3 (0.0-0.1); Basophils % (Auto) 1.2 % (0.0-1.8); Eosinophils # (Auto) 0.1 K/mm3 (0.0-0.4); Eosinophils % (Auto) 1.7 % (0.0-4.3); Hematocrit 45.6 % (35.5-45.6); Hemoglobin 14.9 gm/dl (11.8-15.2); Lymphocytes % (Auto) 26.2 % (13.4-35.0); Mean Corpuscular HGB Conc 33 % (32-34); Mean Corpuscular Volume 85 fl (84-94); Monocytes # (Auto) 0.5 K/mm3 (0.0-0.8); Monocytes % (Auto) 6.8 % (0.0-7.3); Platelet Count 322 K/mm3 (140-440); Red Blood Count 5.37 M/mm3 (3.65-5.03); Red Cell Distribution Width 14.7 % (13.2-15.2)
[2020-01-01 20:54] LABS: BUN/Creatinine Ratio 15; Blood Urea Nitrogen 16 mg/dL (9-20); Calcium 9.5 mg/dL (8.4-10.2); Hemolysis Index 10
== END 2020-01-01 20:00 | disposition left against medical advice (07) ==
LOC: ED 19:01
DX: R51 Headache (principal); Z53.21 Procedure and treatment not carried out due to patient leaving prior to being seen by health care provider
CPT/HCPCS: 36415; 71046; 80048; 84484; 85025; 93005; 93010

== ENCOUNTER 2020-01-18 16:35 | Emergency (ER) | payer SELFPAY ==
[2020-01-18] MEDS ORDERED: ASPIRIN 325 MG TAB PO ONE (16:57)
--- NOTE | 2020-01-18 16:58 | Event Note ---
ED Screening Note Date of service: 01/18/20 Time: 16:55 ED Screening Note: This is a 44 y.o. M. that presents to the ER with headache, chest pain, and dizziness for 1 hour. Took Aspirin prior to arrival. This initial assessment/diagnostic orders/clinical plan/treatment(s) is/are subject to change based on patients health status, clinical progression and re- assessment by fellow clinical providers in the ED. Further treatment and workup at subsequent clinical providers discretion. Patient/guardian urged not to elope from the ED as their condition may be serious if not clinically assessed and managed. Initial orders include: Labs EKG CXR
[2020-01-18 17:11] LABS: Basophils # (Auto) 0.1 K/mm3 (0.0-0.1); Basophils % (Auto) 1.1 % (0.0-1.8); Eosinophils # (Auto) 0.1 K/mm3 (0.0-0.4); Eosinophils % (Auto) 1.2 % (0.0-4.3); Hematocrit 43.6 % (35.5-45.6); Hemoglobin 14.6 gm/dl (11.8-15.2); Lymphocytes # (Auto) 1.9 K/mm3 (1.2-5.4); Lymphocytes % (Auto) 24.6 % (13.4-35.0); Mean Corpuscular HGB Conc 34 % (32-34); Mean Corpuscular Volume 85 fl (84-94); Monocytes # (Auto) 0.5 K/mm3 (0.0-0.8); Monocytes % (Auto) 6.5 % (0.0-7.3); Platelet Count 330 K/mm3 (140-440); Red Blood Count 5.14 M/mm3 (3.65-5.03); Red Cell Distribution Width 15.2 % (13.2-15.2)
[2020-01-18 17:31] LABS: BUN/Creatinine Ratio 13; Blood Urea Nitrogen 16 mg/dL (9-20); Calcium 9.8 mg/dL (8.4-10.2); Hemolysis Index 3
[2020-01-18] MEDS ORDERED: METOCLOPRAMIDE 10 MG/2 ML INJ IV ONE (19:16)
[2020-01-18] MEDS ORDERED: SODIUM CHLORIDE 0.9% 1000 ML 1,000 ML IV ONE (19:16)
[2020-01-18] MEDS ORDERED: LIDOCAINE VISCOUS 2% 15 ML ORAL LIQD PO ONE (19:16)
[2020-01-18] MEDS ORDERED: dexAMETHasone 4 MG/ML VIAL IV ONE (19:16)
[2020-01-18] MEDS ORDERED: ALUM-MAG HYDROXIDE-SIMETHICONE 200-200-20MG/5ML ORAL LIQD 30 ML PO ONE (19:16)
[2020-01-18] MEDS ORDERED: HYOSCYAMINE SUBL 0.125 MG TAB SL ONE (19:16)
[2020-01-18] MEDS ORDERED: diphenhydrAMINE 50 MG/ML VIAL IV ONE (19:16)
--- NOTE | 2020-01-18 20:38 | Emergency Department Report ---
ED General Adult HPI - General Chief complaint: Chest Pain Stated complaint: HEAD PAIN DIZZY CHEST TIGHTNESS Time Seen by Provider: 01/18/20 16:54 Source: patient Mode of arrival: Ambulatory Limitations: No Limitations - History of Present Illness Initial comments: Patient is a 44-year-old male presents emergency room with complaints of a frontal headache that began around 3 PM today. He states it felt like a pressure and that he felt lightheaded. He states that he drank alcohol yesterday and he usually gets these headaches after he has had too much to drink. He states he has not had anything to drink today. He states he also noticed some mild chest tightness when he was outside which he believes was secondary to the pollen. he states he also has heartburn which he attributes to his alcohol use from yesterday. He denies any fever, rhinorrhea, ear pain, shortness of breath, nausea, vomiting, diarrhea, recent travel, recent surgery, leg swelling, sick contacts. He has a past medical history of hypertension and takes amlodipine. He has an allergy to Bactrim. He states he drinks approximately 3 times a week. He is a non-smoker. He denies drug use. He states that today he did take a full dose of aspirin. - Related Data Previous Rx's Medication Instructions Recorded Last Taken Type Fluticasone [Flonase] 1 spray NS QDAY #1 bottle 12/02/15 12/30/15 06:00 Rx Amoxicillin/K Clav Tab [Augmentin 1 tab PO Q12HR #20 tab 01/01/16 Unknown Rx 875 mg] amLODIPine 10 mg PO DAILY #30 tab 08/01/18 Unknown Rx amLODIPine 10 mg PO DAILY #30 tab 08/31/18 Unknown Rx Meclizine [Antivert] 25 mg PO DAILY #20 tablet 12/27/18 Unknown Rx Pseudoephedrine [Sudafed] 60 mg PO Q8H PRN #30 tablet 12/27/18 Unknown Rx Aspirin EC [Ecotrin] 325 mg PO QDAY 30 Days #30 07/09/19 Unknown Rx tablet. Butalgerber/Acetaminophen/Caffeine 1 cap PO Q8HR PRN #14 cap 10/23/19 Unknown Rx [Fioricet 50-300-40 mg CAP] Butalb/Acetaminophen/Caffeine 1 cap PO Q8HR PRN #10 cap 01/18/20 Unknown Rx [Fioricet 50-300-40 mg CAP] Famotidine [Pepcid] 20 mg PO BID #60 tablet 01/18/20 Unknown Rx Allergies Allergy/AdvReac Type Severity Reaction Status Date / Time sulfamethoxazole Allergy Itching Verified 12/27/18 18:09 [From Bactrim] trimethoprim [From Bactrim] Allergy Itching Verified 12/27/18 18:09 ED Review of Systems ROS: Stated complaint: HEAD PAIN DIZZY CHEST TIGHTNESS Other details as noted in HPI Comment: All other systems reviewed and negative ED Past Medical Hx - Past Medical History Previous Medical History?: Yes Hx Hypertension: Yes Hx CVA: No Hx Heart Attack/AMI: No Hx Congestive Heart Failure: No Hx Diabetes: No Hx Deep Vein Thrombosis: No Hx Pulmonary Embolism: No Hx GERD: No Hx Asthma: Yes - Surgical History Past Surgical History?: Yes Additional Surgical History: hernia repair - Social History Smoking Status: Never Smoker Substance Use Type: Alcohol - Medications Home Medications: Home Medications Medication Instructions Recorded Confirmed Last Taken Type Fluticasone [Flonase] 1 spray NS QDAY #1 bottle 12/02/15 01/01/16 12/30/15 06:00 Rx Amoxicillin/K Clav Tab [Augmentin 1 tab PO Q12HR #20 tab 01/01/16 Unknown Rx 875 mg] amLODIPine 10 mg PO DAILY #30 tab 08/01/18 Unknown Rx amLODIPine 10 mg PO DAILY #30 tab 08/31/18 Unknown Rx Meclizine [Antivert] 25 mg PO DAILY #20 tablet 12/27/18 Unknown Rx Pseudoephedrine [Sudafed] 60 mg PO Q8H PRN #30 tablet 12/27/18 Unknown Rx Aspirin EC [Ecotrin] 325 mg PO QDAY 30 Days #30 07/09/19 Unknown Rx tablet. Butalb/Acetaminophen/Caffeine 1 cap PO Q8HR PRN #14 cap 10/23/19 Unknown Rx [Fioricet 50-300-40 mg CAP] Butalb/Acetaminophen/Caffeine 1 cap PO Q8HR PRN #10 cap 01/18/20 Unknown Rx [Fioricet 50-300-40 mg CAP] Famotidine [Pepcid] 20 mg PO BID #60 tablet 01/18/20 Unknown Rx ED Physical Exam - General Limitations: No Limitations General appearance: alert, in no apparent distress - Head Head exam: Present: atraumatic, normocephalic - Eye Eye exam: Present: normal appearance, PERRL, EOMI. Absent: scleral icterus, conjunctival injection, nystagmus, periorbital swelling, periorbital tenderness Pupils: Present: normal accommodation - ENT ENT exam: Present: mucous membranes moist - Neck Neck exam: Present: full ROM. Absent: meningismus - Respiratory Respiratory exam: Present: normal lung sounds bilaterally. Absent: respiratory distress, wheezes, rales, rhonchi, stridor, chest wall tenderness, accessory muscle use, decreased breath sounds, prolonged expiratory - Cardiovascular Cardiovascular Exam: Present: regular rate, normal rhythm, normal heart sounds. Absent: systolic murmur, diastolic murmur, rubs, gallop - Neurological Exam Neurological exam: Present: alert, oriented X3, CN II-XII intact, normal gait, other (normal heel to serra, normal finger to nose, 5/5 strength in the BUE/BLE, sensation intact throughout, normal gait, normal heel to toe walking, no focal neuro deficit). Absent: motor sensory deficit - Psychiatric Psychiatric exam: Present: normal affect, normal mood - Skin Skin exam: Present: warm, dry, intact ED Course Vital Signs 01/18/20 01/18/20 16:54 21:15 Temperature 97.9 F Pulse Rate 82 81 Respiratory 18 18 Rate Blood Pressure 150/95 Blood Pressure 155/99 [Left] O2 Sat by Pulse 98 98 Oximetry ED Medical Decision Making - Lab Data Result diagrams: 01/18/20 17:00 01/18/20 17:00 Lab Results 01/18/20 01/18/20 01/18/20 Range/Units 17:00 17:00 19:34 WBC 7.6 (4.5-11.0) K/mm3 RBC 5.14 H (3.65-5.03) M/mm3 Hgb 14.6 (11.8-15.2) gm/dl Hct 43.6 (35.5-45.6) % MCV 85 (84-94) fl MCH 29 (28-32) pg MCHC 34 (32-34) % RDW 15.2 (13.2-15.2) % Plt Count 330 (140-440) K/mm3 Lymph % (Auto) 24.6 (13.4-35.0) % Russell % (Auto) 6.5 (0.0-7.3) % Eos % (Auto) 1.2 (0.0-4.3) % Baso % (Auto) 1.1 (0.0-1.8) % Lymph # 1.9 (1.2-5.4) K/mm3 Russell # 0.5 (0.0-0.8) K/mm3 Eos # 0.1 (0.0-0.4) K/mm3 Baso # 0.1 (0.0-0.1) K/mm3 Seg Neutrophils % 66.6 (40.0-70.0) % Seg Neutrophils # 5.0 (1.8-7.7) K/mm3 Sodium 137 (137-145) mmol/L Potassium 3.8 (3.6-5.0) mmol/L Chloride 95.1 L (98-107) mmol/L Carbon Dioxide 24 (22-30) mmol/L Anion Gap 22 mmol/L BUN 16 (9-20) mg/dL Creatinine 1.2 (0.8-1.5) mg/dL Estimated GFR > 60 ml/min BUN/Creatinine Ratio 13 % Glucose 106 H (75-100) mg/dL Calcium 9.8 (8.4-10.2) mg/dL Troponin T < 0.010 < 0.010 (0.00-0.029) ng/mL - EKG Data EKG shows normal: sinus rhythm, axis, intervals, QRS complexes, ST-T waves Rate: normal - Radiology Data Radiology results: report reviewed CHEST 2 VIEWS INDICATION / CLINICAL INFORMATION: Chest Pain. COMPARISON: Two-view chest 01/01/2020 FINDINGS: SUPPORT DEVICES: None. HEART / MEDIASTINUM: No significant abnormality. LUNGS / PLEURA: No significant pulmonary or pleural abnormality. No pneumothorax. ADDITIONAL FINDINGS: No significant additional findings. IMPRESSION: No acute finding. No significant change. Signer Name: Augustine Aquino MD Signed: 01/18/2020 8:45 PM Workstation Name: [id number] Transcribed By: CHRIS Dictated By: Augustine Aquino MD Electronically Authenticated By: Augustine Aquino MD Signed Date/Time: 01/18/202044 DD/ 43 TD/TT: - Medical Decision Making Patient is a 44-year-old male presents emergency room with complaints of a frontal headache that began around 3 PM today. He states it felt like a pressure and that he felt lightheaded. He states that he drank alcohol yesterday and he usually gets these headaches after he has had too much to drink. He states he has not had anything to drink today. He states he also noticed some mild chest tightness when he was outside which he believes was secondary to the pollen. he states he also has heartburn which he attributes to his alcohol use from yesterday. He denies any fever, rhinorrhea, ear pain, shortness of breath, nausea, vomiting, diarrhea, recent travel, recent surgery, leg swelling, sick contacts. He has a past medical history of hypertension and takes amlodipine. He has an allergy to Bactrim. He states he drinks approximately 3 times a week. He is a non-smoker. He denies drug use. He states that today he did take a full dose of aspirin. Vitals are stable. No abnormality on physical examination as documented in chart, no neurological deficits. EKG within normal limits. Chest x-ray with no acute process. Labs are stable. Troponin is negative x2. Heart score is 1, MONAE score is 0, very low risk for cardiac event. PERC criteria negative for PE. Offered patient medications for headache and acid reflux and patient politely declined he states that his symptoms have improved and he feels asymptomatic currently. Patient will be referred to outpatient cardiology for further evaluation. Patient given prescription for Fioricet and Pepcid. advised pt Take medication as prescribed as needed. Follow-up with a primary care doctor. Follow-up with a barrel filler. Return to the emergency room for any new or worsening symptoms. - Differential Diagnosis ACS, PUD, GERD, PE, PTX, anemia, anxiety, migraine, tension headache Critical care attestation.: If time is entered above; I have spent that time in minutes in the direct care of this critically ill patient, excluding procedure time. ED Disposition Clinical Impression: Lightheaded, Chest tightness Headache Qualifiers: Headache type: unspecified Headache chronicity pattern: acute headache Intra ctability: not intractable Qualified Code(s): R51 - Headache Disposition: DC-01 TO HOME OR SELFCARE Is pt being admited?: No Does the pt Need Aspirin: No Condition: Stable Instructions: Chest Pain (ED), Diet for Ulcers and Gastritis (ED), Gastroesophageal Reflux Disease (ED), Acute Headache (ED) Additional Instructions: Take medication as prescribed as needed. Follow-up with a primary care doctor. Follow-up with a barrel filler. Return to the emergency room for any new or worsening symptoms. Prescriptions: Butalb/Acetaminophen/Caffeine [Fioricet 50-300-40 mg CAP] 1 cap PO Q8HR PRN #10 cap PRN Reason: headache Famotidine [Pepcid] 20 mg PO BID #60 tablet Referrals: Aline ESPANA MD [Primary Care Provider] - 2-3 Days AMIE GALAN MD [Staff Physician] - 2-[address] [facility] [Outside] - 2-3 Days NORMA JOHNSON MD [Staff Physician] - 2-3 Days Time of Disposition: 20:53 Print Language: TRINIDADIAN
--- NOTE | 2020-01-18 20:50 | XRay Report ---
CHEST 2 VIEWS INDICATION / CLINICAL INFORMATION: Chest Pain. COMPARISON: Two-view chest 01/01/2020 FINDINGS: SUPPORT DEVICES: None. HEART / MEDIASTINUM: No significant abnormality. LUNGS / PLEURA: No significant pulmonary or pleural abnormality. No pneumothorax. ADDITIONAL FINDINGS: No significant additional findings. IMPRESSION: No acute finding. No significant change. Signer Name: Augustine Aquino MD Signed: 01/18/2020 8:45 PM Workstation Name: [id number]
[2020-01-18 21:23] VITALS: BP 155/99
== END 2020-01-18 21:15 | disposition home or self-care (01) ==
LOC: ED 16:35
DX: R51 Headache (principal); R42 Dizziness and giddiness; R07.89 Other chest pain; I10 Essential (primary) hypertension; J45.909 Unspecified asthma, uncomplicated; Z79.82 Long term (current) use of aspirin; Z79.899 Other long term (current) drug therapy; Z88.2 Allergy status to sulfonamides; Z88.8 Allergy status to other drugs, medicaments and biological substances; Z98.890 Other specified postprocedural states
CPT/HCPCS: 36415; 71046; 80048; 84484; 85025; 93005; 93010; J1100; J1200; J2765; J7030

== ENCOUNTER 2020-05-10 16:34 | Emergency (ER) | payer SELFPAY ==
[2020-05-10 16:40] VITALS: BP 142/90
--- NOTE | 2020-05-10 17:46 | Emergency Department Report ---
Chief Complaint: Dyspnea/Respdistress Stated Complaint: SOB - HPI History of Present Illness: Patient 34-year-old male with history of asthma who presents for URI symptoms x2 days. Patient denies shortness of breath, denies wheezing, denies nausea vomiting, no chest pain, no dizziness, or lightheadedness, he states he now has a PCP appointment nd prefers to follow-up with PCP Dr. Gabriel in 2 days. Patient appears alert oriented x3 there is no wheezing, there is no shortness ofbreath patient appears well with no acute distress at this time. Given MSE examination this is a reasonable request. - Exam Vital Signs: Vital Signs 05/10/20 16:37 Temperature 98.6 F Pulse Rate 82 Respiratory 18 Rate Blood Pressure 142/90 O2 Sat by Pulse 92 Oximetry MSE screening note: Focused history and physical exam performed. Due to findings the following was ordered: ED Medical Decision Making - Medical Decision Making This 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 examination on her has fixed and a ROM from both okay as renal function is will register with scabies but not is relieved lung sounds are clear bilaterally there is no emergency medical condition noted on MSE exam at this time patient will follow- up with PCP as ED Disposition for MSE Clinical Impression: URI (upper respiratory infection) Qualifiers: URI type: unspecified URI Qualified Code(s): J06.9 - Acute upper respiratory infection, unspecified Disposition: MED SCREENING EXAM-LEFT Is pt being admited?: No Does the pt Need Aspirin: No Condition: Stable Time of Disposition: 17:45
== END 2020-05-10 18:00 | disposition left against medical advice (07) ==
LOC: ED 16:34
DX: J06.9 Acute upper respiratory infection, unspecified (principal); Z53.21 Procedure and treatment not carried out due to patient leaving prior to being seen by health care provider

== ENCOUNTER 2020-05-20 08:41 | Emergency (ER) | payer SELFPAY ==
[2020-05-20 08:52] VITALS: BP 142/91
--- NOTE | 2020-05-20 11:11 | Emergency Department Report ---
Chief Complaint: Headache Stated Complaint: BLOOD PRESSURE Time Seen by Provider: 05/20/20 10:34 - HPI History of Present Illness: 44-year-old male history of hypertension lost his blood pressure pills 2 days ago. He was unable to get in an emergent appointment with his primary care doctor (Dr sanford). Complains of 4/10 mild headache which is typical of his chronic intermittent headaches. Denies new neurologic symptoms, blurry vision, chest pain, or shortness of breath - ROS Review of Systems: Other review of systems negative - Exam Vital Signs: Vital Signs 05/20/20 08:50 Temperature 98.1 F Pulse Rate 81 Respiratory 18 Rate Blood Pressure 142/91 O2 Sat by Pulse 98 Oximetry Physical Exam: Lungs clear to auscultation, CV: RRR neuro: A&O x3, no slurred speech, 5/5 upper lower extremity strength, gait steady MSE screening note: Focused history and physical exam performed. Due to findings the following was ordered: Prescription for amlodipine 10 mg 1 month supply Patient discussed with doctor:: GIBRAN MONTES DE OCA (I saw the patient) ED Disposition for MSE Condition: Stable Referrals: BELLA ESPANA MD [Primary Care Provider] - 3-5 Days
== END 2020-05-20 11:15 | disposition left against medical advice (07) ==
LOC: ED 08:41
DX: R03.0 Elevated blood-pressure reading, without diagnosis of hypertension (principal); Z53.21 Procedure and treatment not carried out due to patient leaving prior to being seen by health care provider

== ENCOUNTER 2020-06-17 12:11 | Emergency (ER) | payer SELFPAY ==
[2020-06-17 13:52] VITALS: BP 144/86
--- NOTE | 2020-06-17 14:31 | Emergency Department Report ---
ED General Adult HPI - General Chief complaint: Upper Respiratory Infection Stated complaint: SOB Source: patient Mode of arrival: Ambulatory Limitations: No Limitations - History of Present Illness Initial comments: 44-year-old -[place] male patient presents with complaints of an episode of shortness of breath x today. He states history of hypertension and states he is compliant with his blood pressure medications and currently follows with a primary care provider. Patient also states he has history of asthma and his episode of shortness of breath felt like an asthma attack. He states it lasted about 45 minutes and felt like a tightness in his chest. He denies any current chest pain, shortness of breath, - Related Data Previous Rx's Medication Instructions Recorded Last Taken Type Fluticasone [Flonase] 1 spray NS QDAY #1 bottle 12/02/15 12/30/15 06:00 Rx Amoxicillin/K Clav Tab [Augmentin 1 tab PO Q12HR #20 tab 01/01/16 Unknown Rx 875 mg] amLODIPine 10 mg PO DAILY #30 tab 08/01/18 Unknown Rx Meclizine [Antivert] 25 mg PO DAILY #20 tablet 12/27/18 Unknown Rx Pseudoephedrine [Sudafed] 60 mg PO Q8H PRN #30 tablet 12/27/18 Unknown Rx Aspirin EC [Ecotrin] 325 mg PO QDAY 30 Days #30 07/09/19 Unknown Rx tablet. Butalb/Acetaminophen/Caffeine 1 cap PO Q8HR PRN #14 cap 10/23/19 Unknown Rx [Fioricet 50-300-40 mg CAP] Butalb/Acetaminophen/Caffeine 1 cap PO Q8HR PRN #10 cap 01/18/20 Unknown Rx [Fioricet 50-300-40 mg CAP] Famotidine [Pepcid] 20 mg PO BID #60 tablet 01/18/20 Unknown Rx Albuterol Mdi (or & Nicu Only) 2 puff IH QID PRN #8.5 gram 02/19/20 Unknown Rx [ProAir HFA Inhaler] Prednisone [predniSONE 10 mg 10 mg PO .TAPER #1 tab.ds.pk 02/19/20 Unknown Rx (6-Day Pack, 21 Tabs)] Amoxicillin/K Clav Tab [Augmentin 1 tab PO Q12HR #20 tab 04/15/20 Unknown Rx 875 mg] amLODIPine 10 mg PO DAILY #30 tab 05/20/20 Unknown Rx Albuterol Mdi (or & Nicu Only) 2 puff IH Q4H PRN #8.5 gram 06/17/20 Unknown Rx [ProAir HFA Inhaler] Allergies Allergy/AdvReac Type Severity Reaction Status Date / Time sulfamethoxazole Allergy Itching Verified 04/15/20 14:44 [From Bactrim] trimethoprim [From Bactrim] Allergy Itching Verified 04/15/20 14:44 ED Review of Systems ROS: Stated complaint: SOB Other details as noted in HPI ED Past Medical Hx - Past Medical History Hx Hypertension: Yes Hx CVA: No Hx Heart Attack/AMI: No Hx Congestive Heart Failure: No Hx Diabetes: No Hx Deep Vein Thrombosis: No Hx Pulmonary Embolism: No Hx GERD: No Hx Asthma: Yes - Surgical History Additional Surgical History: hernia repair - Social History Smoking Status: Never Smoker Substance Use Type: None - Medications Home Medications: Home Medications Medication Instructions Recorded Confirmed Last Taken Type Fluticasone [Flonase] 1 spray NS QDAY #1 bottle 12/02/15 01/01/16 12/30/15 06:00 Rx Amoxicillin/K Clav Tab [Augmentin 1 tab PO Q12HR #20 tab 01/01/16 Unknown Rx 875 mg] amLODIPine 10 mg PO DAILY #30 tab 08/01/18 Unknown Rx Meclizine [Antivert] 25 mg PO DAILY #20 tablet 12/27/18 Unknown Rx Pseudoephedrine [Sudafed] 60 mg PO Q8H PRN #30 tablet 12/27/18 Unknown Rx Aspirin EC [Ecotrin] 325 mg PO QDAY 30 Days #30 07/09/19 Unknown Rx tablet. Butalb/Acetaminophen/Caffeine 1 cap PO Q8HR PRN #14 cap 10/23/19 Unknown Rx [Fioricet 50-300-40 mg CAP] Butalb/Acetaminophen/Caffeine 1 cap PO Q8HR PRN #10 cap 01/18/20 Unknown Rx [Fioricet 50-300-40 mg CAP] Famotidine [Pepcid] 20 mg PO BID #60 tablet 01/18/20 Unknown Rx Albuterol Mdi (or & Nicu Only) 2 puff IH QID PRN #8.5 gram 02/19/20 Unknown Rx [ProAir HFA Inhaler] Prednisone [predniSONE 10 mg 10 mg PO .TAPER #1 tab.ds.pk 02/19/20 Unknown Rx (6-Day Pack, 21 Tabs)] Amoxicillin/K Clav Tab [Augmentin 1 tab PO Q12HR #20 tab 04/15/20 Unknown Rx 875 mg] amLODIPine 10 mg PO DAILY #30 tab 05/20/20 Unknown Rx Albuterol Mdi (or & Nicu Only) 2 puff IH Q4H PRN #8.5 gram 06/17/20 Unknown Rx [ProAir HFA Inhaler] ED Physical Exam - General Limitations: No Limitations ED Course Vital Signs 06/17/20 12:20 Temperature 98.5 F Pulse Rate 80 Respiratory 18 Rate Blood Pressure 144/86 O2 Sat by Pulse 97 Oximetry Critical care attestation.: If time is entered above; I have spent that time in minutes in the direct care of this critically ill patient, excluding procedure time. ED Disposition Clinical Impression: Asthma exacerbation Qualifiers: Asthma severity: mild Asthma persistence: intermittent Qualified Code(s): J45.2 1 - Mild intermittent asthma with (acute) exacerbation Disposition: DC- TO HOME OR SELFCARE Is pt being admited?: No Condition: Stable Instructions: Asthma (ED) Prescriptions: Albuterol Mdi (or & Nicu Only) [ProAir HFA Inhaler] 2 puff IH Q4H PRN #8.5 gram PRN Reason: Shortness Of Breath Referrals: PRIMARY CARE, [Referring] - 3-5 Days
--- NOTE | 2020-06-17 14:33 | Event Note ---
ED Screening Note Date of service: 06/17/20 Time: 14:32 ED Screening Note: Patient complains of sudden onset of shortness of breath and chest tightness this morning. Patient states the episode lasted about 45 minutes and felt like his asthma He denies any current chest pain or shortness of breath History of hypertension, but denies any history or family history of heart disease This initial assessment/diagnostic orders/clinical plan/treatment(s) is/are subject to change based on patients health status, clinical progression and re- assessment by fellow clinical providers in the ED. Further treatment and workup at subsequent clinical providers discretion. Patient/guardian urged not to elope from the ED as their condition may be serious if not clinically assessed and managed. Initial orders include: Chest x-ray EKG Labs
--- NOTE | 2020-06-17 15:16 | XRay Report ---
. XR chest 1V ap INDICATION / CLINICAL INFORMATION: chest pain. COMPARISON: 04/18/2020 FINDINGS: SUPPORT DEVICES: None. HEART / MEDIASTINUM: No significant abnormality. LUNGS / PLEURA: Lungs are clear. Costophrenic sulci are sharp. No pneumothorax. ADDITIONAL FINDINGS: No significant additional findings. IMPRESSION: 1. No acute findings. Signer Name: Josiah Rossi MD Signed: 06/17/2020 3:12 PM Workstation Name: [id number]
[2020-06-17 15:19] LABS: Basophils % (Auto) 0.9 % (0.0-1.8); Eosinophils % (Auto) 2.8 % (0.0-4.3); Hematocrit 45.2 % (35.5-45.6); Hemoglobin 15.1 gm/dl (11.8-15.2); Lymphocytes % (Auto) 25.2 % (13.4-35.0); Mean Corpuscular HGB Conc 33 % (32-34); Mean Corpuscular Volume 86 fl (84-94); Monocytes % (Auto) 7.9 % (0.0-7.3); Platelet Count 312 K/mm3 (140-440); Red Blood Count 5.28 M/mm3 (3.65-5.03); Red Cell Distribution Width 14.8 % (13.2-15.2)
[2020-06-17 15:20] LABS: Eosinophils # (Auto) 0.2 K/mm3 (0.0-0.4); Lymphocytes # (Auto) 1.8 K/mm3 (1.2-5.4); Monocytes # (Auto) 0.6 K/mm3 (0.0-0.8)
[2020-06-17 16:07] LABS: Alanine Aminotransferase 24 units/L (7-56); Albumin 4.4 g/dL (3.9-5); BUN/Creatinine Ratio 12; Blood Urea Nitrogen 12 mg/dL (9-20); Calcium 9.4 mg/dL (8.4-10.2); Hemolysis Index 9
--- NOTE | 2020-06-17 17:01 | Emergency Department Report ---
Minor Respiratory - HPI Chief Complaint: Upper Respiratory Infection Stated Complaint: SOB Time Seen by Provider: 06/17/20 15:51 Duration: Today Severity: mild Minor Respiratory: Yes Able to Tolerate Fluids, Yes Shortness of Breath, No Rhinorrhea, No Sore Throat, No Ear Pain, No Cough, No Sick Contacts, No Hemoptysis, No Chest Pain, No Fever Other History: This is a 44-year-old male with no prior medical history who presents the ED complaining of shortness of breath that began this morning. Patient states that shortness of breath is resolved and he feels better. Patient denies any sick contacts, coughing, fever, headache, blurry vision or any other symptoms. Patient states that he had shortness of breath incident this morning that resolved but was unable to go to work he came here to be evaluated. ED Review of Systems ROS: Stated complaint: SOB Other details as noted in HPI Comment: All other systems reviewed and negative ED Past Medical Hx - Past Medical History Hx Hypertension: Yes Hx CVA: No Hx Heart Attack/AMI: No Hx Congestive Heart Failure: No Hx Diabetes: No Hx Deep Vein Thrombosis: No Hx Pulmonary Embolism: No Hx GERD: No Hx Asthma: Yes - Surgical History Additional Surgical History: hernia repair - Social History Smoking Status: Never Smoker Substance Use Type: None - Medications Home Medications: Home Medications Medication Instructions Recorded Confirmed Last Taken Type Fluticasone [Flonase] 1 spray NS QDAY #1 bottle 12/02/15 01/01/16 12/30/15 06:00 Rx Amoxicillin/K Clav Tab [Augmentin 1 tab PO Q12HR #20 tab 01/01/16 Unknown Rx 875 mg] amLODIPine 10 mg PO DAILY #30 tab 08/01/18 Unknown Rx Meclizine [Antivert] 25 mg PO DAILY #20 tablet 12/27/18 Unknown Rx Pseudoephedrine [Sudafed] 60 mg PO Q8H PRN #30 tablet 12/27/18 Unknown Rx Aspirin EC [Ecotrin] 325 mg PO QDAY 30 Days #30 07/09/19 Unknown Rx tablet. Butalb/Acetaminophen/Caffeine 1 cap PO Q8HR PRN #14 cap 10/23/19 Unknown Rx [Fioricet 50-300-40 mg CAP] Butalb/Acetaminophen/Caffeine 1 cap PO Q8HR PRN #10 cap 01/18/20 Unknown Rx [Fioricet 50-300-40 mg CAP] Famotidine [Pepcid] 20 mg PO BID #60 tablet 01/18/20 Unknown Rx Albuterol Mdi (or & Nicu Only) 2 puff IH QID PRN #8.5 gram 02/19/20 Unknown Rx [ProAir HFA Inhaler] Prednisone [predniSONE 10 mg 10 mg PO .TAPER #1 tab.ds.pk 02/19/20 Unknown Rx (6-Day Pack, 21 Tabs)] Amoxicillin/K Clav Tab [Augmentin 1 tab PO Q12HR #20 tab 04/15/20 Unknown Rx 875 mg] amLODIPine 10 mg PO DAILY #30 tab 05/20/20 Unknown Rx Albuterol Mdi (or & Nicu Only) 2 puff IH Q4H PRN #8.5 gram 06/17/20 Unknown Rx [ProAir HFA Inhaler] Minor Respiratory Exam - Exam General: Vital signs noted. No distress. Alert and acting appropriately. HEENT: Yes Moist Mucous Membranes, No Pharyngeal Erythema, No Pharyngeal Exudates, No Rhinorrhea, No Conjuctival Injection, No Frontal Tenderness, No Maxillary Tenderness Ear: Neither TM Bulge, Neither TM Erythema, Neither EAC Pain, Neither EAC Discharge Neck: Yes Supple, No Adenopathy Lungs: Yes Good Air Exchange, No Wheezes, No Ronchi, No Stridor, No Cough, No Labored Respirations, No Retractions, No Use of Accessory Muscles, No Other Abnormal Lung Sounds Heart: Yes Regular, No Murmur Abdomen: Yes Normal Bowel Sounds, No Tenderness, No Peritoneal Signs Skin: No Rash, No Edema Neurologic: Alert and oriented, no deficits. Musculoskeletal: Unremarkable. ED Course Vital Signs 06/17/20 12:20 Temperature 98.5 F Pulse Rate 80 Respiratory 18 Rate Blood Pressure 144/86 O2 Sat by Pulse 97 Oximetry ED Medical Decision Making - Lab Data Result diagrams: 06/17/20 14:43 06/17/20 14:43 Laboratory Last Values WBC 7.1 K/mm3 (4.5-11.0) 06/17/20 14:43 RBC 5.28 M/mm3 (3.65-5.03) H 06/17/20 14:43 Hgb 15.1 gm/dl (11.8-15.2) 06/17/20 14:43 Hct 45.2 % (35.5-45.6) 06/17/20 14:43 MCV 86 fl (84-94) 06/17/20 14:43 MCH 29 pg (28-32) 06/17/20 14:43 MCHC 33 % (32-34) 06/17/20 14:43 RDW 14.8 % (13.2-15.2) 06/17/20 14:43 Plt Count 312 K/mm3 (140-440) 06/17/20 14:43 Lymph % (Auto) 25.2 % (13.4-35.0) 06/17/20 14:43 [place] % (Auto) 7.9 % (0.0-7.3) H 06/17/20 14:43 Eos % (Auto) 2.8 % (0.0-4.3) 06/17/20 14:43 Baso % (Auto) 0.9 % (0.0-1.8) 06/17/20 14:43 Lymph # 1.8 K/mm3 (1.2-5.4) 06/17/20 14:43 [place] # 0.6 K/mm3 (0.0-0.8) 06/17/20 14:43 Eos # 0.2 K/mm3 (0.0-0.4) 06/17/20 14:43 Baso # 0.0 K/mm3 (0.0-0.1) 06/17/20 14:43 Seg Neutrophils % 63.2 % (40.0-70.0) 06/17/20 14:43 Seg Neutrophils # 4.5 K/mm3 (1.8-7.7) 06/17/20 14:43 Sodium 137 mmol/L (137-145) 06/17/20 14:43 Potassium 4.0 mmol/L (3.6-5.0) 06/17/20 14:43 Chloride 98.2 mmol/L (98-107) 06/17/20 14:43 Carbon Dioxide 25 mmol/L (22-30) 06/17/20 14:43 Anion Gap 18 mmol/L 06/17/20 14:43 BUN 12 mg/dL (9-20) 06/17/20 14:43 Creatinine 1.0 mg/dL (0.8-1.3) 06/17/20 14:43 Estimated GFR > 60 ml/min 06/17/20 14:43 BUN/Creatinine Ratio 12 % 06/17/20 14:43 Glucose 87 mg/dL (75-100) 06/17/20 14:43 Calcium 9.4 mg/dL (8.4-10.2) 06/17/20 14:43 Total Bilirubin 0.40 mg/dL (0.1-1.2) 06/17/20 14:43 AST 28 units/L (5-40) 06/17/20 14:43 ALT 24 units/L (7-56) 06/17/20 14:43 Alkaline Phosphatase 56 units/L (35-129) 06/17/20 14:43 Troponin T < 0.010 ng/mL (0.00-0.029) 06/17/20 14:43 Total Protein 8.1 g/dL (6.3-8.2) 06/17/20 14:43 Albumin 4.4 g/dL (3.9-5) 06/17/20 14:43 Albumin/Globulin Ratio 1.2 % 06/17/20 14:43 - Radiology Data Radiology results: report reviewed INDICATION / CLINICAL INFORMATION: chest pain. COMPARISON: 04/18/2020 FINDINGS: SUPPORT DEVICES: None. HEART / MEDIASTINUM: No significant abnormality. LUNGS / PLEURA: Lungs are clear. Costophrenic sulci are sharp. No pneumothorax. ADDITIONAL FINDINGS: No significant additional findings. IMPRESSION: 1. No acute findings. Signer Name: Josiah Rossi MD Signed: 06/17/2020 3:12 PM Workstation Name: [id number] - Medical Decision Making 44-year-old male presents with shortness of breath that started and ended today no fever during the ED stay. Chest x-ray shows no acute findings. Discussed with patient symptomatic relief with [id number] medications. Discussed worsening of symptoms patient should return to ED immediately. Patient oxygen saturation stayed at 98% on room air during exertion and after exertion. Discussed continue Tylenol as needed for fever and pain. Discussed increase fluids and diet intake. Discussed rest much needed. Discussed daily vitamin C for immune booster. Discussed follow-up with [facility] physician in 3-5 days. Patient verbally states she understands and will comply the following instructions and follow-up Vital signs stable. Patient is in no acute distress Critical care attestation.: If time is entered above; I have spent that time in minutes in the direct care of this critically ill patient, excluding procedure time. ED Disposition Clinical Impression: Dyspnea, Upper respiratory infection Disposition: TO HOME OR SELFCARE Is pt being admited?: No Does the pt Need Aspirin: No Condition: Stable Instructions: Asthma (ED), Dyspnea (ED) Additional Instructions: Make sure to follow up with the primary care physician as discussed. Take all your medications as you've been prescribed. If you have any worsening symptoms or develop new symptoms please return to ED immediately. Prescriptions: Albuterol Mdi (or & Nicu Only) [ProAir HFA Inhaler] 2 puff IH Q4H PRN #8.5 gram PRN Reason: Shortness Of Breath Referrals: PRIMARY CARE, [Primary Care Provider] - 3-5 Days [facility] [Outside] - 3-5 Days [facility] [Outside] - 3-5 Days Forms: Work/School Release Form(ED) Time of Disposition: 17:05
== END 2020-06-17 18:02 | disposition home or self-care (01) ==
LOC: ED 12:11
DX: J06.9 Acute upper respiratory infection, unspecified (principal); R06.00 Dyspnea, unspecified; I10 Essential (primary) hypertension; J45.909 Unspecified asthma, uncomplicated; Z88.2 Allergy status to sulfonamides; Z88.8 Allergy status to other drugs, medicaments and biological substances; Z79.899 Other long term (current) drug therapy; Z98.890 Other specified postprocedural states
CPT/HCPCS: 36415; 71045; 80053; 84484; 85025; 93005

== ENCOUNTER 2020-08-12 11:18 | Emergency (ER) | payer SELFPAY ==
[2020-08-12 11:38] VITALS: BP 144/82
--- NOTE | 2020-08-12 12:04 | Emergency Department Report ---
ED Headache HPI - General Chief Complaint: Headache Stated Complaint: HEADACHE/HBP Time Seen by Provider: 08/12/20 12:00 Source: patient, RN notes reviewed Exam Limitations: no limitations - History of Present Illness Allergies/Adverse Reactions: Allergies sulfamethoxazole [From Bactrim] Allergy (Verified 04/15/20 14:44) Itching trimethoprim [From Bactrim] Allergy (Verified 04/15/20 14:44) Itching Home Medications: Ambulatory Orders Fluticasone [Flonase] 1 spray NS QDAY #1 bottle 12/02/15 Amoxicillin/K Clav Tab [Augmentin 875 mg] 1 tab PO Q12HR #20 tab 01/01/16 amLODIPine 10 mg PO DAILY #30 tab 08/01/18 Meclizine [Antivert] 25 mg PO DAILY #20 tablet 12/27/18 Pseudoephedrine [Sudafed] 60 mg PO Q8H PRN #30 tablet 12/27/18 Aspirin EC [Ecotrin] 325 mg PO QDAY 30 Days #30 tablet.dr 07/09/19 Butalb/Acetaminophen/Caffeine [Fioricet 50-300-40 mg CAP] 1 cap PO Q8HR PRN #14 cap 10/23/19 Butalb/Acetaminophen/Caffeine [Fioricet 50-300-40 mg CAP] 1 cap PO Q8HR PRN #10 cap 01/18/20 Famotidine [Pepcid] 20 mg PO BID #60 tablet 01/18/20 Albuterol Mdi (or & Nicu Only) [ProAir HFA Inhaler] 2 puff IH QID PRN #8.5 gram 02/19/20 Prednisone [predniSONE 10 mg (6-Day Pack, 21 Tabs)] 10 mg PO .TAPER #1 tab.ds.pk 02/19/20 Amoxicillin/K Clav Tab [Augmentin 875 mg] 1 tab PO Q12HR #20 tab 04/15/20 amLODIPine 10 mg PO DAILY #30 tab 05/20/20 Albuterol Mdi (or & Nicu Only) [ProAir HFA Inhaler] 2 puff IH Q4H PRN #8.5 gram 06/17/20 ED Review of Systems ROS: Stated complaint: HEADACHE/HBP Other details as noted in HPI Comment: All other systems reviewed and negative ED Past Medical Hx - Past Medical History Previous Medical History?: Yes Hx Hypertension: Yes Hx CVA: No Hx Heart Attack/AMI: No Hx Congestive Heart Failure: No Hx Diabetes: No Hx Deep Vein Thrombosis: No Hx Pulmonary Embolism: No Hx GERD: No Hx Asthma: Yes - Surgical History Past Surgical History?: Yes Additional Surgical History: hernia repair - Social History Smoking Status: Never Smoker Substance Use Type: None - Medications Home Medications: Home Medications Medication Instructions Recorded Confirmed Last Taken Type Fluticasone [Flonase] 1 spray NS QDAY #1 bottle 12/02/15 01/01/16 12/30/15 06:00 Rx Amoxicillin/K Clav Tab [Augmentin 1 tab PO Q12HR #20 tab 01/01/16 Unknown Rx 875 mg] amLODIPine 10 mg PO DAILY #30 tab 08/01/18 Unknown Rx Meclizine [Antivert] 25 mg PO DAILY #20 tablet 12/27/18 Unknown Rx Pseudoephedrine [Sudafed] 60 mg PO Q8H PRN #30 tablet 12/27/18 Unknown Rx Aspirin EC [Ecotrin] 325 mg PO QDAY 30 Days #30 07/09/19 Unknown Rx tablet. Butalb/Acetaminophen/Caffeine 1 cap PO Q8HR PRN #14 cap 10/23/19 Unknown Rx [Fioricet 50-300-40 mg CAP] Butalb/Acetaminophen/Caffeine 1 cap PO Q8HR PRN #10 cap 01/18/20 Unknown Rx [Fioricet 50-300-40 mg CAP] Famotidine [Pepcid] 20 mg PO BID #60 tablet 01/18/20 Unknown Rx Albuterol Mdi (or & Nicu Only) 2 puff IH QID PRN #8.5 gram 02/19/20 Unknown Rx [ProAir HFA Inhaler] Prednisone [predniSONE 10 mg 10 mg PO .TAPER #1 tab.ds.pk 02/19/20 Unknown Rx (6-Day Pack, 21 Tabs)] Amoxicillin/K Clav Tab [Augmentin 1 tab PO Q12HR #20 tab 04/15/20 Unknown Rx 875 mg] amLODIPine 10 mg PO DAILY #30 tab 05/20/20 Unknown Rx Albuterol Mdi (or & Nicu Only) 2 puff IH Q4H PRN #8.5 gram 06/17/20 Unknown Rx [ProAir HFA Inhaler] ED Physical Exam - General Limitations: No Limitations General appearance: alert, in no apparent distress - Head Head exam: Present: atraumatic, normocephalic - Eye Eye exam: Present: normal appearance, PERRL, EOMI, other. Absent: nystagmus - Expanded Eye Exam Expanded Pupils: Regular, Round: Bilateral Sclera/Conjunctival: Normal Inspection: Bilateral Anterior chamber: Normal Inspection: Bilateral Posterior chamber: Normal Inspection: Bilateral - ENT ENT exam: Present: normal exam, normal orophraynx, mucous membranes moist - Neck Neck exam: Present: normal inspection - Respiratory Respiratory exam: Present: normal lung sounds bilaterally. Absent: respiratory distress - Cardiovascular Cardiovascular Exam: Present: regular rate, normal rhythm. Absent: systolic murmur, diastolic murmur, rubs, gallop - GI/Abdominal GI/Abdominal exam: Present: soft, normal bowel sounds - Rectal Rectal exam: Present: deferred - Extremities Exam Extremities exam: Present: normal inspection - Back Exam Back exam: Present: normal inspection - Neurological Exam Neurological exam: Present: alert, oriented X3, CN II-XII intact, normal gait, reflexes normal. Absent: motor sensory deficit - Psychiatric Psychiatric exam: Present: normal affect, normal mood - Skin Skin exam: Present: warm, dry, intact, normal color. Absent: rash ED Course Vital Signs 08/12/20 11:37 Temperature 98.3 F Pulse Rate 92 H Respiratory 16 Rate Blood Pressure 144/82 [Right] O2 Sat by Pulse 98 Oximetry Critical care attestation.: If time is entered above; I have spent that time in minutes in the direct care of this critically ill patient, excluding procedure time. ED Disposition Clinical Impression: HTN (hypertension), Cephalgia Disposition: MED SCREENING EXAM-LEFT Is pt being admited?: No Does the pt Need Aspirin: No Condition: Stable Instructions: Hypertension (ED), Tension Headache (ED), Migraine Headache (ED), Abuse of Alcohol (ED) Additional Instructions: Limit alcohol and use OTC tylenol and motrin for pain. Referrals: AMIE GALAN MD [Staff Physician] - 3-5 Days
== END 2020-08-12 12:54 | disposition left against medical advice (07) ==
LOC: ED 11:18
DX: R51.9 Headache, unspecified (principal); Z53.21 Procedure and treatment not carried out due to patient leaving prior to being seen by health care provider

== ENCOUNTER 2020-10-18 09:18 | Emergency (ER) | payer SELFPAY ==
[2020-10-18 09:30] VITALS: BP 135/86
== END 2020-10-18 21:00 | disposition left against medical advice (07) ==
LOC: ED 09:18
DX: H53.8 Other visual disturbances (principal); Z53.21 Procedure and treatment not carried out due to patient leaving prior to being seen by health care provider
CPT/HCPCS: 82962

== ENCOUNTER 2020-11-02 16:06 | Emergency (ER) | payer SELFPAY ==
[2020-11-02] MEDS ORDERED: ASPIRIN 325 MG TAB PO ONE (16:11)
[2020-11-02 16:33] LABS: Basophils # (Auto) 0.1 K/mm3 (0.0-0.1); Basophils % (Auto) 1.1 % (0.0-1.8); Eosinophils # (Auto) 0.1 K/mm3 (0.0-0.4); Eosinophils % (Auto) 0.7 % (0.0-4.3); Hematocrit 45.8 % (35.5-45.6); Hemoglobin 15.2 gm/dl (11.8-15.2); Lymphocytes # (Auto) 2.5 K/mm3 (1.2-5.4); Lymphocytes % (Auto) 32.5 % (13.4-35.0); Mean Corpuscular HGB Conc 33 % (32-34); Mean Corpuscular Volume 87 fl (84-94); Monocytes # (Auto) 0.5 K/mm3 (0.0-0.8); Monocytes % (Auto) 7.1 % (0.0-7.3); Platelet Count 337 K/mm3 (140-440); Red Blood Count 5.24 M/mm3 (3.65-5.03); Red Cell Distribution Width 14.7 % (13.2-15.2)
--- NOTE | 2020-11-02 16:33 | XRay Report ---
CHEST 1 VIEW 11/02/2020 4:28 PM INDICATION / CLINICAL INFORMATION: Chest Pain. COMPARISON: 06/17/2020 FINDINGS: SUPPORT DEVICES: None. HEART / MEDIASTINUM: No significant abnormality. LUNGS / PLEURA: No significant pulmonary or pleural abnormality. No pneumothorax. ADDITIONAL FINDINGS: No significant additional findings. IMPRESSION: 1. No acute findings. Signer Name: Antione Beckham MD Signed: 11/02/2020 4:28 PM Workstation Name: [id number]
[2020-11-02 16:52] LABS: BUN/Creatinine Ratio 13; Blood Urea Nitrogen 13 mg/dL (9-20); Calcium 9.3 mg/dL (8.4-10.2); Hemolysis Index 14
[2020-11-02 17:07] LABS: Alanine Aminotransferase 26 units/L (7-56); Albumin 4.3 g/dL (3.9-5); Bilirubin,Direct < 0.2 mg/dL (0-0.2)
[2020-11-02] MEDS ORDERED: ASPIRIN 81 MG TAB CHEW PO ONE (18:42)
[2020-11-02 18:58] VITALS: BP 153/94
--- NOTE | 2020-11-02 19:31 | Emergency Department Report ---
ED Chest Pain HPI - General Chief Complaint: Chest Pain Stated Complaint: CHEST DISCOMFORT/LIGHT HEAEDED Source: patient Mode of arrival: Ambulatory Limitations: No Limitations - History of Present Illness Initial Comments: Patient is a 45-year-old male with past medical history of asthma and hypertension who presents to the emergency department with complaint of chest pain. Patient states he has had several days of chest pain he states sometimes it feels like a dull ache sometimes it feels like pressure. He does not currently have chest pain. He also sometimes feels lightheaded. He denies any shortness of breath. He states that the pain does not occur when he is exerting himself. He does state that he had heavy intake of alcohol on last night. Patient states that he has been taking his amlodipine sporadically. Severity scale (0 -10): 0 - Related Data Previous Rx's Medication Instructions Recorded Last Taken Type Fluticasone [Flonase] 1 spray NS QDAY #1 bottle 12/02/15 12/30/15 06:00 Rx Amoxicillin/K Clav Tab [Augmentin 1 tab PO Q12HR #20 tab 01/01/16 Unknown Rx 875 mg] amLODIPine 10 mg PO DAILY #30 tab 08/01/18 Unknown Rx Meclizine [Antivert] 25 mg PO DAILY #20 tablet 12/27/18 Unknown Rx Pseudoephedrine [Sudafed] 60 mg PO Q8H PRN #30 tablet 12/27/18 Unknown Rx Aspirin EC [Ecotrin] 325 mg PO QDAY 30 Days #30 07/09/19 Unknown Rx tablet. Butalb/Acetaminophen/Caffeine 1 cap PO Q8HR PRN #14 cap 10/23/19 Unknown Rx [Fioricet 50-300-40 mg CAP] Butalb/Acetaminophen/Caffeine 1 cap PO Q8HR PRN #10 cap 01/18/20 Unknown Rx [Fioricet 50-300-40 mg CAP] Famotidine [Pepcid] 20 mg PO BID #60 tablet 01/18/20 Unknown Rx Albuterol Mdi (or & Nicu Only) 2 puff IH QID PRN #8.5 gram 02/19/20 Unknown Rx [ProAir HFA Inhaler] Prednisone [predniSONE 10 mg 10 mg PO .TAPER #1 tab.ds.pk 02/19/20 Unknown Rx (6-Day Pack, 21 Tabs)] Amoxicillin/K Clav Tab [Augmentin 1 tab PO Q12HR #20 tab 04/15/20 Unknown Rx 875 mg] amLODIPine 10 mg PO DAILY #30 tab 05/20/20 Unknown Rx Albuterol Mdi (or & Nicu Only) 2 puff IH Q4H PRN #8.5 gram 06/17/20 Unknown Rx [ProAir HFA Inhaler] Allergies Allergy/AdvReac Type Severity Reaction Status Date / Time sulfamethoxazole Allergy Itching Verified 04/15/20 14:44 [From Bactrim] trimethoprim [From Bactrim] Allergy Itching Verified 04/15/20 14:44 Heart Score - HEART Score History: Slightly suspicious EKG: Normal Age: < 45 Risk factors: 1-2 risk factors Troponin: < normal limit HEART Score: 1 ED Review of Systems ROS: Stated complaint: CHEST DISCOMFORT/LIGHT HEAEDED Other details as noted in HPI Constitutional: denies: chills, fever Eyes: denies: eye discharge ENT: denies: throat pain Respiratory: denies: cough, shortness of breath Cardiovascular: chest pain. denies: dyspnea on exertion Endocrine: no symptoms reported Gastrointestinal: denies: abdominal pain, nausea, vomiting Genitourinary: denies: dysuria Musculoskeletal: denies: back pain Skin: denies: rash Neurological: denies: headache, weakness Psychiatric: denies: anxiety, depression Hematological/Lymphatic: denies: easy bleeding ED Past Medical Hx - Past Medical History Previous Medical History?: Yes Hx Hypertension: Yes Hx CVA: No Hx Heart Attack/AMI: No Hx Congestive Heart Failure: No Hx Diabetes: No Hx Deep Vein Thrombosis: No Hx Pulmonary Embolism: No Hx GERD: No Hx Asthma: Yes - Surgical History Past Surgical History?: Yes Additional Surgical History: hernia repair - Social History Smoking Status: Never Smoker Substance Use Type: None - Medications Home Medications: Home Medications Medication Instructions Recorded Confirmed Last Taken Type Fluticasone [Flonase] 1 spray NS QDAY #1 bottle 12/02/15 01/01/16 12/30/15 06:00 Rx Amoxicillin/K Clav Tab [Augmentin 1 tab PO Q12HR #20 tab 01/01/16 Unknown Rx 875 mg] amLODIPine 10 mg PO DAILY #30 tab 08/01/18 Unknown Rx Meclizine [Antivert] 25 mg PO DAILY #20 tablet 12/27/18 Unknown Rx Pseudoephedrine [Sudafed] 60 mg PO Q8H PRN #30 tablet 12/27/18 Unknown Rx Aspirin EC [Ecotrin] 325 mg PO QDAY 30 Days #30 07/09/19 Unknown Rx tablet. Butalgerber/Acetaminophen/Caffeine 1 cap PO Q8HR PRN #14 cap 10/23/19 Unknown Rx [Fioricet 50-300-40 mg CAP] Butalb/Acetaminophen/Caffeine 1 cap PO Q8HR PRN #10 cap 01/18/20 Unknown Rx [Fioricet 50-300-40 mg CAP] Famotidine [Pepcid] 20 mg PO BID #60 tablet 01/18/20 Unknown Rx Albuterol Mdi (or & Nicu Only) 2 puff IH QID PRN #8.5 gram 02/19/20 Unknown Rx [ProAir HFA Inhaler] Prednisone [predniSONE 10 mg 10 mg PO .TAPER #1 tab.ds.pk 02/19/20 Unknown Rx (6-Day Pack, 21 Tabs)] Amoxicillin/K Clav Tab [Augmentin 1 tab PO Q12HR #20 tab 04/15/20 Unknown Rx 875 mg] amLODIPine 10 mg PO DAILY #30 tab 05/20/20 Unknown Rx Albuterol Mdi (or & Nicu Only) 2 puff IH Q4H PRN #8.5 gram 06/17/20 Unknown Rx [ProAir HFA Inhaler] ED Physical Exam - General Limitations: No Limitations General appearance: alert, in no apparent distress - Head Head exam: Present: atraumatic, normocephalic - Eye Eye exam: Present: normal appearance, PERRL Pupils: Present: normal accommodation - ENT ENT exam: Present: normal exam - Neck Neck exam: Present: normal inspection - Respiratory Respiratory exam: Present: normal lung sounds bilaterally. Absent: respiratory distress - Cardiovascular Cardiovascular Exam: Present: regular rate, normal rhythm, normal heart sounds - GI/Abdominal GI/Abdominal exam: Present: soft. Absent: distended, tenderness - Rectal Rectal exam: Present: deferred - Extremities Exam Extremities exam: Present: normal inspection - Back Exam Back exam: Present: normal inspection - Neurological Exam Neurological exam: Present: alert, oriented X3 - Psychiatric Psychiatric exam: Present: normal affect - Skin Skin exam: Present: warm, dry, intact ED Course Vital Signs 11/02/20 18:56 Temperature 98.2 F Pulse Rate 76 Respiratory 14 Rate Blood Pressure 153/94 [Left] O2 Sat by Pulse 94 Oximetry MONAE score - Monae Score Age > 65: (0) No Aspirin use within the Past 7 Days: (0) No 3 or more CAD Risk Factors: (0) No 2 or more Angina events in past 24 hrs: (0) No Known CAD with more than 50% Stenosis: (0) No Elevated Cardiac Markers: (0) No ST Deviation Greater than 0.5mm: (0) No MONAE Score: 0 ED Medical Decision Making - Lab Data Result diagrams: 11/02/20 16:15 11/02/20 16:15 - EKG Data -: EKG Interpreted by Ct EKG shows normal: sinus rhythm, axis, intervals, QRS complexes, ST-T waves Rate: normal - EKG Data When compared to previous EKG there are: previous EKG unavailable - Medical Decision Making Patient is a 45-year-old male with history of hypertension and asthma who presents emergency department complaint of chest pain. Pain peers to be atypical for ACS. Patient's heart score is a 1. EKG was obtained that showed no acute abnormalities. Patient has had 2 - troponins. Patient is low risk per his heart score and has not been instructed that he should follow-up with primary care for outpatient stress testing. Patient's chest ray additionally was normal ruling out any pneumonia. His lungs sounded clear this is unlikely an asthma exacerbation. Patient is amenable for pain and for discharge and feels improved at the time of discharge. Critical care attestation.: If time is entered above; I have spent that time in minutes in the direct care of this critically ill patient, excluding procedure time. ED Disposition Clinical Impression: Chest pain Disposition: DC-01 TO HOME OR SELFCARE Is pt being admited?: No Does the pt Need Aspirin: Yes Condition: Stable Instructions: Nonspecific Chest Pain, Adult, [id number], Chest Pain (ED) Additional Instructions: Please call your primary care doctor so that you can schedule a stress test as an outpatient. Referrals: PRIMARY CARE, [Primary Care Provider] - 3-5 Days
== END 2020-11-02 20:32 | disposition home or self-care (01) ==
LOC: ED 16:06
DX: R07.89 Other chest pain (principal); I10 Essential (primary) hypertension; J45.909 Unspecified asthma, uncomplicated; Z79.899 Other long term (current) drug therapy; Z88.8 Allergy status to other drugs, medicaments and biological substances; Z88.2 Allergy status to sulfonamides; Z98.890 Other specified postprocedural states
CPT/HCPCS: 36415; 71045; 80048; 80076; 84484; 85025; 93005

== ENCOUNTER 2020-12-29 10:55 | Emergency (ER) | payer SELFPAY ==
[2020-12-29 11:40] VITALS: BP 161/98
--- NOTE | 2020-12-29 11:45 | Emergency Department Report ---
ED Shortness of Breath HPI - General Chief Complaint: Dyspnea/Respdistress Stated Complaint: ABRAHAM Source: patient Mode of arrival: Ambulatory Limitations: No Limitations - History of Present Illness Initial Comments: 45-year-old -[place] male that is known to me through the ER for multiple visits for shortness of breath. Patient states that this morning when he woke up he had some shortness of breath. He does have a history of asthma and hypertension. Patient states he has been out of his inhaler. Patient reports his symptoms have improved. Denies any chest pain no nausea no vomiting no headache. MD Complaint: shortness of breath -: This morning Pain Scale: 0 Consistency: now resolved Improves With: nothing Worsens With: nothing Known History Of: asthma Treatments Prior to Arrival: none - Related Data Home Oxygen Therapy: No Previous Rx's Medication Instructions Recorded Last Taken Type Fluticasone [Flonase] 1 spray NS QDAY #1 bottle 12/02/15 12/30/15 06:00 Rx Amoxicillin/K Clav Tab [Augmentin 1 tab PO Q12HR #20 tab 01/01/16 Unknown Rx 875 mg] amLODIPine 10 mg PO DAILY #30 tab 08/01/18 Unknown Rx Meclizine [Antivert] 25 mg PO DAILY #20 tablet 12/27/18 Unknown Rx Pseudoephedrine [Sudafed] 60 mg PO Q8H PRN #30 tablet 12/27/18 Unknown Rx Aspirin EC [Ecotrin] 325 mg PO QDAY 30 Days #30 07/09/19 Unknown Rx tablet. Butalb/Acetaminophen/Caffeine 1 cap PO Q8HR PRN #14 cap 10/23/19 Unknown Rx [Fioricet 50-300-40 mg CAP] Butalb/Acetaminophen/Caffeine 1 cap PO Q8HR PRN #10 cap 01/18/20 Unknown Rx [Fioricet 50-300-40 mg CAP] Famotidine [Pepcid] 20 mg PO BID #60 tablet 01/18/20 Unknown Rx Albuterol Mdi (or & Nicu Only) 2 puff IH QID PRN #8.5 gram 02/19/20 Unknown Rx [ProAir HFA Inhaler] Prednisone [predniSONE 10 mg 10 mg PO .TAPER #1 tab.ds.pk 02/19/20 Unknown Rx (6-Day Pack, 21 Tabs)] Amoxicillin/K Clav Tab [Augmentin 1 tab PO Q12HR #20 tab 04/15/20 Unknown Rx 875 mg] amLODIPine 10 mg PO DAILY #30 tab 05/20/20 Unknown Rx Albuterol Mdi (or & Nicu Only) 2 puff IH Q4H PRN #8.5 gram 12/29/20 Unknown Rx [ProAir HFA Inhaler] Allergies Allergy/AdvReac Type Severity Reaction Status Date / Time sulfamethoxazole Allergy Itching Verified 12/29/20 11:37 [From Bactrim] trimethoprim [From Bactrim] Allergy Itching Verified 12/29/20 11:37 ED Review of Systems ROS: Stated complaint: ABRAHAM Other details as noted in HPI Comment: All other systems reviewed and negative ED Past Medical Hx - Past Medical History Hx Hypertension: Yes Hx CVA: No Hx Heart Attack/AMI: No Hx Congestive Heart Failure: No Hx Diabetes: No Hx Deep Vein Thrombosis: No Hx Pulmonary Embolism: No Hx GERD: No Hx Asthma: Yes - Surgical History Additional Surgical History: hernia repair - Social History Smoking Status: Never Smoker Substance Use Type: None - Medications Home Medications: Home Medications Medication Instructions Recorded Confirmed Last Taken Type Fluticasone [Flonase] 1 spray NS QDAY #1 bottle 12/02/15 01/01/16 12/30/15 06:00 Rx Amoxicillin/K Clav Tab [Augmentin 1 tab PO Q12HR #20 tab 01/01/16 Unknown Rx 875 mg] amLODIPine 10 mg PO DAILY #30 tab 08/01/18 Unknown Rx Meclizine [Antivert] 25 mg PO DAILY #20 tablet 12/27/18 Unknown Rx Pseudoephedrine [Sudafed] 60 mg PO Q8H PRN #30 tablet 12/27/18 Unknown Rx Aspirin EC [Ecotrin] 325 mg PO QDAY 30 Days #30 07/09/19 Unknown Rx tablet. Butalb/Acetaminophen/Caffeine 1 cap PO Q8HR PRN #14 cap 10/23/19 Unknown Rx [Fioricet 50-300-40 mg CAP] Butalb/Acetaminophen/Caffeine 1 cap PO Q8HR PRN #10 cap 01/18/20 Unknown Rx [Fioricet 50-300-40 mg CAP] Famotidine [Pepcid] 20 mg PO BID #60 tablet 01/18/20 Unknown Rx Albuterol Mdi (or & Nicu Only) 2 puff IH QID PRN #8.5 gram 02/19/20 Unknown Rx [ProAir HFA Inhaler] Prednisone [predniSONE 10 mg 10 mg PO .TAPER #1 tab.ds.pk 02/19/20 Unknown Rx (6-Day Pack, 21 Tabs)] Amoxicillin/K Clav Tab [Augmentin 1 tab PO Q12HR #20 tab 04/15/20 Unknown Rx 875 mg] amLODIPine 10 mg PO DAILY #30 tab 05/20/20 Unknown Rx Albuterol Mdi (or & Nicu Only) 2 puff IH Q4H PRN #8.5 gram 12/29/20 Unknown Rx [ProAir HFA Inhaler] ED Physical Exam - General Limitations: No Limitations General appearance: alert, in no apparent distress - Head Head exam: Present: atraumatic, normocephalic - Eye Eye exam: Present: normal appearance - ENT ENT exam: Present: mucous membranes moist - Neck Neck exam: Present: normal inspection - Respiratory Respiratory exam: Present: normal lung sounds bilaterally. Absent: respiratory distress - Cardiovascular Cardiovascular Exam: Present: regular rate, normal rhythm. Absent: systolic murmur, diastolic murmur, rubs, gallop - GI/Abdominal GI/Abdominal exam: Present: soft, normal bowel sounds - Rectal Rectal exam: Present: deferred - Extremities Exam Extremities exam: Present: normal inspection - Back Exam Back exam: Present: normal inspection - Neurological Exam Neurological exam: Present: alert, oriented X3 - Psychiatric Psychiatric exam: Present: normal affect, normal mood - Skin Skin exam: Present: warm, dry, intact, normal color. Absent: rash ED Course Vital Signs 12/29/20 11:40 Temperature 99.0 F Pulse Rate 85 Respiratory 20 Rate Blood Pressure 161/98 O2 Sat by Pulse 95 Oximetry ED Medical Decision Making - Medical Decision Making 45-year-old -[place] male that is known to me through the ER for multiple visits for shortness of breath. Patient states that this morning when he woke up he had some shortness of breath. He does have a history of asthma and hypertension. Patient states he has been out of his inhaler. Patient reports his symptoms have improved. Denies any chest pain no nausea no vomiting no headache. Patient has a normal physical examination. Vital signs are stable and actionable. Patient will be discharged home with a prescription for his albuterol. Patient is encouraged to follow-up with his primary care provider. Critical care attestation.: If time is entered above; I have spent that time in minutes in the direct care of this critically ill patient, excluding procedure time. ED Disposition Clinical Impression: Shortness of breath Disposition: DC-01 TO HOME OR SELFCARE Is pt being admited?: No Does the pt Need Aspirin: No Condition: Stable Instructions: Shortness of Breath, Adult, [id number] Additional Instructions: Use inhaler as needed for shortness of breath follow-up with your primary care provider. Prescriptions: Albuterol Mdi (or & Nicu Only) [ProAir HFA Inhaler] 2 puff IH Q4H PRN #8.5 gram PRN Reason: Shortness Of Breath Referrals: BELLA ESPANA MD [Referring] - 3-5 Days Forms: Work/School Release Form(ED)
== END 2020-12-29 12:19 | disposition home or self-care (01) ==
LOC: ED 10:55
DX: R06.02 Shortness of breath (principal); I10 Essential (primary) hypertension; Z79.1 Long term (current) use of non-steroidal anti-inflammatories (NSAID); Z79.2 Long term (current) use of antibiotics; Z79.899 Other long term (current) drug therapy; Z88.2 Allergy status to sulfonamides; Z88.8 Allergy status to other drugs, medicaments and biological substances
CPT/HCPCS: 99281

== ENCOUNTER 2021-02-08 16:49 | Emergency (ER) | payer SELFPAY ==
[2021-02-08 17:21] VITALS: BP 161/92
--- NOTE | 2021-02-08 17:24 | Emergency Department Report ---
Chief Complaint: Eye Problems Stated Complaint: EYE IRRITATION Time Seen by Provider: 02/08/21 17:21 - HPI History of Present Illness: 45-year-old male patient presents to emergency department with complaints of painless erythema to his right eye occurring last night. Patient states he vomited one time. After he vomited, he looked in the mirror and noticed that his sclera was red. Patient does not wear contacts. He has not used any eyedrops. He is not anticoagulated. Denies visual disturbance, pain, fever, purulent drainage, nausea/vomiting today. Denies all other complaints at this time. - ROS Review of Systems: GENERAL: Negative for fever. EYES: Positive for redness. CARDIOVASCULAR: Negative for chest pain. PULMONARY: Negative for shortness of breath. GASTROINTESTINAL: Negative for abdominal pain. MUSCULOSKELETAL: Negative for back pain. NEUROLOGICAL: Negative for headache. INTEGUMENTARY: Negative for rash. - Exam Vital Signs: Vital Signs 02/08/21 17:19 Temperature 98.7 F Pulse Rate 83 Respiratory 18 Rate Blood Pressure 161/92 [Right] O2 Sat by Pulse 97 Oximetry Physical Exam: General: Awake, appropriately interactive, no acute distress. Eyes: PERRL. EOMI. Conjugate gaze. Conjunctivae are pink. No conjunctival injection or edema. Subconjunctival hemorrhage noted to right sclerae. Neck: Supple. Full range of motion intact. Cardiovascular: Normal peripheral perfusion. Pulmonary: No respiratory distress. Patient is speaking normally without use of accessory muscles. Skin: No apparent rashes or lesions. Neurological: No facial asymmetry. Speech is clear. Follows commands. Patient is alert and oriented. Musculoskeletal: Moves all four extremities spontaneously with normal range of motion. Psych: Cooperative. Appropriate mood and affect. MSE screening note: Focused history and physical exam performed. Due to findings the following was ordered: ED Medical Decision Making - Medical Decision Making Patient presents emergency department with unilateral painless red sclerae since yesterday. Vital signs are stable. He is afebrile. No visual disturbance. History and exam findings consistent with subconjunctival hemorrhage. No clinical indication for further diagnostic work-up on an emergent basis at this time. Referred to local primary care provider for close outpatient follow-up. Strict return precautions provided. ED Disposition for MSE Clinical Impression: Subconjunctival hemorrhage of right eye Disposition: MED SCREENING EXAM-LEFT Is pt being admited?: No Does the pt Need Aspirin: No Condition: Stable Instructions: Subconjunctival Hemorrhage Additional Instructions: Follow-up with your primary care provider this week. Call tomorrow to schedule appointment. Return to the emergency department immediately for new or worsening symptoms. Referrals: AMIE GALAN MD [Staff Physician] - 3-5 Days Time of Disposition: 17:24
== END 2021-02-08 18:02 | disposition left against medical advice (07) ==
LOC: ED 16:49
DX: Z00.8 Encounter for other general examination (principal); Z53.21 Procedure and treatment not carried out due to patient leaving prior to being seen by health care provider

== ENCOUNTER 2021-05-19 18:04 | Emergency (ER) | payer SELFPAY ==
[2021-05-19 19:38] LABS: Bilirubin,Urine NEG (Negative); Blood,Urine NEG (Negative); Color,Urine Yellow (Yellow); Mucus,Urine 2+ /HPF; Urobilinogen,Urine < 2.0 mg/dL (<2.0)
--- NOTE | 2021-05-19 21:56 | Emergency Department Report ---
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 and felt a pulling strain and pain Radiation: non-radiation Quality: aching, dull Improves with: none Worsens with: movement Associated Symptoms: denies: chest pain, cough, diaphoresis, loss of appetite, malaise, nausea/vomiting, shortness of breath, syncope, weakness Treatments Prior to Arrival: none - Related Data Previous Rx's Medication Instructions Recorded Last Taken Type Fluticasone [Flonase] 1 spray NS QDAY #1 bottle 12/02/15 12/30/15 06:00 Rx Amoxicillin/K Clav Tab [Augmentin 1 tab PO Q12HR #20 tab 01/01/16 Unknown Rx 875 mg] amLODIPine 10 mg PO DAILY #30 tab 08/01/18 Unknown Rx Meclizine [Antivert] 25 mg PO DAILY #20 tablet 12/27/18 Unknown Rx Pseudoephedrine [Sudafed] 60 mg PO Q8H PRN #30 tablet 12/27/18 Unknown Rx Aspirin EC [Ecotrin] 325 mg PO QDAY 30 Days #30 07/09/19 Unknown Rx tablet. Butalb/Acetaminophen/Caffeine 1 cap PO Q8HR PRN #14 cap 10/23/19 Unknown Rx [Fioricet 50-300-40 mg CAP] Butalb/Acetaminophen/Caffeine 1 cap PO Q8HR PRN #10 cap 01/18/20 Unknown Rx [Fioricet 50-300-40 mg CAP] Famotidine [Pepcid] 20 mg PO BID #60 tablet 01/18/20 Unknown Rx Albuterol Mdi (or & Nicu Only) 2 puff IH QID PRN #8.5 gram 02/19/20 Unknown Rx [ProAir HFA Inhaler] Prednisone [predniSONE 10 mg 10 mg PO .TAPER #1 tab.ds.pk 02/19/20 Unknown Rx (6-Day Pack, 21 Tabs)] Amoxicillin/K Clav Tab [Augmentin 1 tab PO Q12HR #20 tab 04/15/20 Unknown Rx 875 mg] amLODIPine 10 mg PO DAILY #30 tab 05/20/20 Unknown Rx Albuterol Mdi (or & Nicu Only) 2 puff IH Q4H PRN #8.5 gram 12/29/20 Unknown Rx [ProAir HFA Inhaler] Ketorolac [Toradol] 10 mg PO Q6H PRN #14 tablet 05/19/21 Unknown Rx methOCARBAMOL [Robaxin TAB] 750 mg PO Q8H #20 tablet 05/19/21 Unknown Rx Allergies Allergy/AdvReac Type Severity Reaction Status Date / Time sulfamethoxazole Allergy Itching Verified 12/29/20 11:37 [From Bactrim] trimethoprim [From Bactrim] Allergy Itching Verified 12/29/20 11:37 ED Review of Systems ROS: Stated complaint: RT SIDE PELVIC PAIN Other details as noted in HPI Comment: All other systems reviewed and negative ED Past Medical Hx - Past Medical History Hx Hypertension: Yes Hx CVA: No Hx Heart Attack/AMI: No Hx Congestive Heart Failure: No Hx Diabetes: No Hx Deep Vein Thrombosis: No Hx Pulmonary Embolism: No Hx GERD: No Hx Asthma: Yes - Surgical History Additional Surgical History: hernia repair - Social History Smoking Status: Never Smoker Substance Use Type: None - Medications Home Medications: Home Medications Medication Instructions Recorded Confirmed Last Taken Type Fluticasone [Flonase] 1 spray NS QDAY #1 bottle 12/02/15 01/01/16 12/30/15 06:00 Rx Amoxicillin/K Clav Tab [Augmentin 1 tab PO Q12HR #20 tab 01/01/16 Unknown Rx 875 mg] amLODIPine 10 mg PO DAILY #30 tab 08/01/18 Unknown Rx Meclizine [Antivert] 25 mg PO DAILY #20 tablet 12/27/18 Unknown Rx Pseudoephedrine [Sudafed] 60 mg PO Q8H PRN #30 tablet 12/27/18 Unknown Rx Aspirin EC [Ecotrin] 325 mg PO QDAY 30 Days #30 07/09/19 Unknown Rx tablet.dr Nova/Acetaminophen/Caffeine 1 cap PO Q8HR PRN #14 cap 10/23/19 Unknown Rx [Fioricet 50-300-40 mg CAP] Butalb/Acetaminophen/Caffeine 1 cap PO Q8HR PRN #10 cap 01/18/20 Unknown Rx [Fioricet 50-300-40 mg CAP] Famotidine [Pepcid] 20 mg PO BID #60 tablet 01/18/20 Unknown Rx Albuterol Mdi (or & Nicu Only) 2 puff IH QID PRN #8.5 gram 02/19/20 Unknown Rx [ProAir HFA Inhaler] Prednisone [predniSONE 10 mg 10 mg PO .TAPER #1 tab.ds.pk 02/19/20 Unknown Rx (6-Day Pack, 21 Tabs)] Amoxicillin/K Clav Tab [Augmentin 1 tab PO Q12HR #20 tab 04/15/20 Unknown Rx 875 mg] amLODIPine 10 mg PO DAILY #30 tab 05/20/20 Unknown Rx Albuterol Mdi (or & Nicu Only) 2 puff IH Q4H PRN #8.5 gram 12/29/20 Unknown Rx [ProAir HFA Inhaler] Ketorolac [Toradol] 10 mg PO Q6H PRN #14 tablet 05/19/21 Unknown Rx methOCARBAMOL [Robaxin TAB] 750 mg PO Q8H #20 tablet 05/19/21 Unknown Rx ED Physical Exam - General Limitations: No Limitations General appearance: alert, in no apparent distress - Head Head exam: Present: atraumatic, normocephalic - Eye Eye exam: Present: normal appearance, PERRL, EOMI Pupils: Present: normal accommodation - ENT ENT exam: Present: normal exam, normal orophraynx, mucous membranes moist, TM's normal bilaterally - Neck Neck exam: Present: normal inspection, full ROM - Respiratory Respiratory exam: Present: normal lung sounds bilaterally. Absent: respiratory distress, rales, rhonchi, stridor, chest wall tenderness, accessory muscle use - Cardiovascular Cardiovascular Exam: Present: regular rate, normal rhythm. Absent: systolic murmur, diastolic murmur, rubs, gallop - GI/Abdominal GI/Abdominal exam: Present: soft, normal bowel sounds - Rectal Rectal exam: Present: deferred - Extremities Exam Extremities exam: Present: normal inspection, tenderness (Tenderness to the right inguinal region with palpation pain is reproduced with opposed flexion and adduction. No hernia is present there. No no discoloration. No abrasions. No lymphadenopathy. No cellulitis no lymphangitis.) - Back Exam Back exam: Present: normal inspection - Neurological Exam Neurological exam: Present: alert, oriented X3 - Psychiatric Psychiatric exam: Present: normal affect, normal mood - Skin Skin exam: Present: warm, dry, intact, normal color. Absent: rash ED Course Vital Signs 05/19/21 18:10 Temperature 98.4 F Pulse Rate 92 H Respiratory 20 Rate Blood Pressure 178/95 O2 Sat by Pulse 97 Oximetry Critical care attestation.: If time is entered above; I have spent that time in minutes in the direct care of this critically ill patient, excluding procedure time. ED Disposition Clinical Impression: Groin strain Disposition: DC-01 TO HOME OR SELFCARE Is pt being admited?: No Does the pt Need Aspirin: No Condition: Stable Instructions: Adductor Muscle Strain, How to Use Cold Therapy, [id number], Straddle Injuries, Adductor Muscle Strain Rehab-SportsMed Prescriptions: methOCARBAMOL [Robaxin TAB] 750 mg PO Q8H #20 tablet Ketorolac [Toradol] 10 mg PO Q6H PRN #14 tablet PRN Reason: Pain Referrals: PRIMARY MD MARIA E [Primary Care Provider] - 3-5 Days MEL JALLOH MD [Staff Physician] - 3-5 Days [facility] [Provider Group] - 3-5 Days
[2021-05-20 03:22] VITALS: BP 153/93
== END 2021-05-19 22:22 | disposition home or self-care (01) ==
LOC: ED 18:04
DX: S39.011A Strain of muscle, fascia and tendon of abdomen, initial encounter (principal); I10 Essential (primary) hypertension; J45.909 Unspecified asthma, uncomplicated; Z88.2 Allergy status to sulfonamides; Z88.8 Allergy status to other drugs, medicaments and biological substances; Z79.899 Other long term (current) drug therapy; X58.XXXA Exposure to other specified factors, initial encounter; Y93.89 Activity, other specified; Y92.89 Other specified places as the place of occurrence of the external cause; Y99.8 Other external cause status
CPT/HCPCS: 81001; 99283

== ENCOUNTER 2021-07-30 19:44 | Emergency (ER) | payer BC ==
--- NOTE | 2021-07-30 21:35 | Emergency Department Report ---
ED Recheck HPI - General Chief Complaint: High BP Stated Complaint: BP UP CHEST DISCOMFORT Time Seen by Provider: 07/30/21 20:46 Source: patient Mode of arrival: Ambulatory Limitations: No Limitations - History of Present Illness Initial Comments: This is a 45-year-old male nontoxic, well nourished in appearance, no acute signs of distress presents to the ED with c/o of medications refill for his high blood pressure. Patient stated last dose was 4 days ago. Stated has some headaches but resolved prior to arrival. Currently patient denies any head aches. Patient denies thunderclap headache. Patient denies any radiation of pain. Patient denies any head trauma. Patient denies any visual changes. Patient denies any numbness, tingling, fever, chills, nausea, vomiting, chest pain, shortness of breath, stiff neck. Patient denies facial drooping or one sided weakness. Patient stated allergies to Bactrim. MD Complaint: medication refill request Returns Today for: request for prescription Symptoms Since Prior Visit: no new symptoms Associated Symptoms: none. denies: fever, chills, chest pain, shortness of breath, rash, malaise, [place], abdominal pain - Related Data Previous Rx's Medication Instructions Recorded Last Taken Type Fluticasone [Flonase] 1 spray NS QDAY #1 bottle 12/02/15 12/30/15 06:00 Rx Amoxicillin/K Clav Tab [Augmentin 1 tab PO Q12HR #20 tab 01/01/16 Unknown Rx 875 mg] amLODIPine 10 mg PO DAILY #30 tab 08/01/18 Unknown Rx Meclizine [Antivert] 25 mg PO DAILY #20 tablet 12/27/18 Unknown Rx Pseudoephedrine [Sudafed] 60 mg PO Q8H PRN #30 tablet 12/27/18 Unknown Rx Aspirin EC [Ecotrin] 325 mg PO QDAY 30 Days #30 07/09/19 Unknown Rx tablet. Butalb/Acetaminophen/Caffeine 1 cap PO Q8HR PRN #14 cap 10/23/19 Unknown Rx [Fioricet 50-300-40 mg CAP] Butalb/Acetaminophen/Caffeine 1 cap PO Q8HR PRN #10 cap 01/18/20 Unknown Rx [Fioricet 50-300-40 mg CAP] Famotidine [Pepcid] 20 mg PO BID #60 tablet 01/18/20 Unknown Rx Albuterol Mdi (or & Nicu Only) 2 puff IH QID PRN #8.5 gram 02/19/20 Unknown Rx [ProAir HFA Inhaler] Prednisone [predniSONE 10 mg 10 mg PO .TAPER #1 tab.ds.pk 02/19/20 Unknown Rx (6-Day Pack, 21 Tabs)] Amoxicillin/K Clav Tab [Augmentin 1 tab PO Q12HR #20 tab 04/15/20 Unknown Rx 875 mg] amLODIPine 10 mg PO DAILY #30 tab 05/20/20 Unknown Rx Albuterol Mdi (or & Nicu Only) 2 puff IH Q4H PRN #8.5 gram 12/29/20 Unknown Rx [ProAir HFA Inhaler] Ketorolac [Toradol] 10 mg PO Q6H PRN #14 tablet 05/19/21 Unknown Rx methOCARBAMOL [Robaxin TAB] 750 mg PO Q8H #20 tablet 05/19/21 Unknown Rx amLODIPine 10 mg PO DAILY #30 tab 07/30/21 Unknown Rx Allergies Allergy/AdvReac Type Severity Reaction Status Date / Time sulfamethoxazole Allergy Itching Verified 12/29/20 11:37 [From Bactrim] trimethoprim [From Bactrim] Allergy Itching Verified 12/29/20 11:37 ED Review of Systems ROS: Stated complaint: BP UP CHEST DISCOMFORT Other details as noted in HPI Comment: All other systems reviewed and negative Constitutional: denies: chills, fever Eyes: denies: eye pain, eye discharge, vision change ENT: denies: ear pain, throat pain Respiratory: denies: cough, shortness of breath, wheezing Cardiovascular: denies: chest pain, palpitations Endocrine: no symptoms reported Gastrointestinal: denies: abdominal pain, nausea, diarrhea Genitourinary: denies: urgency, dysuria Musculoskeletal: denies: back pain, joint swelling, arthralgia Skin: denies: rash, lesions Neurological: denies: headache, weakness, paresthesias Psychiatric: denies: anxiety, depression Hematological/Lymphatic: denies: easy bleeding, easy bruising ED Past Medical Hx - Past Medical History Previous Medical History?: Yes Hx Hypertension: Yes Hx CVA: No Hx Heart Attack/AMI: No Hx Congestive Heart Failure: No Hx Diabetes: No Hx Deep Vein Thrombosis: No Hx Pulmonary Embolism: No Hx GERD: No Hx Asthma: Yes - Surgical History Past Surgical History?: Yes Additional Surgical History: hernia repair - Social History Smoking Status: Never Smoker Substance Use Type: None - Medications Home Medications: Home Medications Medication Instructions Recorded Confirmed Last Taken Type Fluticasone [Flonase] 1 spray NS QDAY #1 bottle 12/02/15 01/01/16 12/30/15 06:00 Rx Amoxicillin/K Clav Tab [Augmentin 1 tab PO Q12HR #20 tab 01/01/16 Unknown Rx 875 mg] amLODIPine 10 mg PO DAILY #30 tab 08/01/18 Unknown Rx Meclizine [Antivert] 25 mg PO DAILY #20 tablet 12/27/18 Unknown Rx Pseudoephedrine [Sudafed] 60 mg PO Q8H PRN #30 tablet 12/27/18 Unknown Rx Aspirin EC [Ecotrin] 325 mg PO QDAY 30 Days #30 07/09/19 Unknown Rx tablet. Butalb/Acetaminophen/Caffeine 1 cap PO Q8HR PRN #14 cap 10/23/19 Unknown Rx [Fioricet 50-300-40 mg CAP] Butalb/Acetaminophen/Caffeine 1 cap PO Q8HR PRN #10 cap 01/18/20 Unknown Rx [Fioricet 50-300-40 mg CAP] Famotidine [Pepcid] 20 mg PO BID #60 tablet 01/18/20 Unknown Rx Albuterol Mdi (or & Nicu Only) 2 puff IH QID PRN #8.5 gram 02/19/20 Unknown Rx [ProAir HFA Inhaler] Prednisone [predniSONE 10 mg 10 mg PO .TAPER #1 tab.ds.pk 02/19/20 Unknown Rx (6-Day Pack, 21 Tabs)] Amoxicillin/K Clav Tab [Augmentin 1 tab PO Q12HR #20 tab 04/15/20 Unknown Rx 875 mg] amLODIPine 10 mg PO DAILY #30 tab 05/20/20 Unknown Rx Albuterol Mdi (or & Nicu Only) 2 puff IH Q4H PRN #8.5 gram 12/29/20 Unknown Rx [ProAir HFA Inhaler] Ketorolac [Toradol] 10 mg PO Q6H PRN #14 tablet 05/19/21 Unknown Rx methOCARBAMOL [Robaxin TAB] 750 mg PO Q8H #20 tablet 05/19/21 Unknown Rx amLODIPine 10 mg PO DAILY #30 tab 07/30/21 Unknown Rx ED Physical Exam - General Limitations: No Limitations General appearance: alert, in no apparent distress - Head Head exam: Present: atraumatic, normocephalic - Eye Eye exam: Present: normal appearance, PERRL, EOMI - Neck Neck exam: Present: normal inspection, full ROM. Absent: lymphadenopathy - Respiratory Respiratory exam: Present: normal lung sounds bilaterally. Absent: respiratory distress, wheezes, rales, rhonchi, stridor, chest wall tenderness, accessory muscle use, decreased breath sounds, prolonged expiratory - Cardiovascular Cardiovascular Exam: Present: regular rate, normal rhythm, normal heart sounds. Absent: bradycardia, tachycardia, irregular rhythm, systolic murmur, diastolic murmur, rubs, gallop - GI/Abdominal GI/Abdominal exam: Present: soft, normal bowel sounds. Absent: distended, tenderness, guarding, rebound, rigid, diminished bowel sounds - Extremities Exam Extremities exam: Present: normal inspection, full ROM - Back Exam Back exam: Present: normal inspection, full ROM. Absent: tenderness - Neurological Exam Neurological exam: Present: alert, oriented X3, normal gait - Expanded Neurological Exam Expanded Patient oriented to: Present: person, place, time Cranial nerves: EOM's Intact: Normal, Facial Sensation: Normal Cerebellar function: Finger to Nose: Normal Upper motor neuron: Pronator Drift: Normal, Sensory Extinction: Normal Motor strength exam: RUE: 5, LUE: 5, RLE: 5, LLE: 5 Best Eye Response ([place]): (4) open spontaneously Best Motor Response ([place]): (6) obeys commands Best Verbal Response ([place]): (5) oriented [place] Total: 15 - Psychiatric Psychiatric exam: Present: normal affect, normal mood - Skin Skin exam: Present: warm, dry, intact, normal color. Absent: rash ED Course Vital Signs 07/30/21 20:15 Temperature 99.0 F Pulse Rate 89 Respiratory 18 Rate Blood Pressure 170/104 O2 Sat by Pulse 97 Oximetry - Reevaluation(s) Reevaluation #1: 07/30/21 21:38 Patient is speaking in full sentences with no signs of distress noted. ED Recheck MDM - Medical Decision Making 45-year-old male that presents with medication refill. Patient is stable and was examined by me. Patient stated takes Norvasc 10 mg daily. Otherwise physical exam is unremarkable. Neuro exam is unremarkable. According to ACEP: (1) in ED patients with asymptomatic markedly elevated blood pressure, routine screening for acute target organ injury (eg, serum creatinine, urinalysis, ECG) is not required. (1) In patients with asymptomatic markedly elevated blood pressure, routine ED medical intervention is not required. Patient was instructed to follow-up with a primary care doctor in 3-5 days or if symptoms worsen and continue return to emergency room as soon as possible. At time of discharge, the patient does not seem toxic or ill in appearance. No acute signs of distress noted. Patient agrees to discharge treatment plan of care. No further questions noted by the patient. Critical care attestation.: If time is entered above; I have spent that time in minutes in the direct care of this critically ill patient, excluding procedure time. ED Disposition Clinical Impression: Medication refill Disposition: 01 HOME / SELF CARE / HOMELESS Is pt being admited?: No Does the pt Need Aspirin: No Condition: Stable Instructions: Amlodipine tablets, Hypertension, Adult, [id number] Additional Instructions: Follow-up with a primary care doctor in 3-5 days or if symptoms worsen and continue return to emergency room as soon as possible. Prescriptions: amLODIPine 10 mg PO DAILY #30 tab Referrals: PRIMARY CARE, [Referring] - 3-5 Days AMIE GALAN MD [Staff Physician] - 3-5 Days Time of Disposition: 21:40
[2021-07-30 21:51] VITALS: BP 184/110
== END 2021-07-30 22:11 | disposition home or self-care (01) ==
LOC: ED 19:44
DX: I10 Essential (primary) hypertension (principal); Z76.0 Encounter for issue of repeat prescription; Z88.1 Allergy status to other antibiotic agents; Z88.2 Allergy status to sulfonamides
CPT/HCPCS: 99282

== ENCOUNTER 2021-10-24 08:47 | Emergency (ER) | payer BC ==
[2021-10-24 09:36] LABS: Basophils # (Auto) 0.1 K/mm3 (0.0-0.1); Eosinophils % (Auto) 0.7 % (0.0-4.3); Hematocrit 45.5 % (35.5-45.6); Hemoglobin 14.8 gm/dl (11.8-15.2); Lymphocytes # (Auto) 1.5 K/mm3 (1.2-5.4); Mean Corpuscular HGB Conc 32 % (32-34); Mean Corpuscular Volume 87 fl (84-94); Monocytes # (Auto) 0.5 K/mm3 (0.0-0.8); Monocytes % (Auto) 7.6 % (0.0-7.3); Platelet Count 329 K/mm3 (140-440); Red Blood Count 5.21 M/mm3 (3.65-5.03); Red Cell Distribution Width 14.6 % (13.2-15.2)
--- NOTE | 2021-10-24 09:41 | Emergency Department Report ---
ED General Adult HPI - General Chief complaint: Chest Pain Stated complaint: CHEST PAIN Time Seen by Provider: 10/24/21 09:12 Source: patient Mode of arrival: Ambulatory Limitations: No Limitations - History of Present Illness Initial comments: Patient is 46 years old male with history of hypertension. Patient presented to the ER complaining of chest pain started early this morning, substernal with no radiation. Patient stated that he was drinking alcohol a lot yesterday. Patient denied nausea or vomiting. No shortness of breath, fever or chills or cough. - Related Data Previous Rx's Medication Instructions Recorded Last Taken Type Fluticasone [Flonase] 1 spray NS QDAY #1 bottle 12/02/15 12/30/15 06:00 Rx Amoxicillin/K Clav Tab [Augmentin 1 tab PO Q12HR #20 tab 01/01/16 Unknown Rx 875 mg] amLODIPine 10 mg PO DAILY #30 tab 08/01/18 Unknown Rx Meclizine [Antivert] 25 mg PO DAILY #20 tablet 12/27/18 Unknown Rx Pseudoephedrine [Sudafed] 60 mg PO Q8H PRN #30 tablet 12/27/18 Unknown Rx Aspirin EC [Ecotrin] 325 mg PO QDAY 30 Days #30 07/09/19 Unknown Rx tablet. Butalb/Acetaminophen/Caffeine 1 cap PO Q8HR PRN #14 cap 10/23/19 Unknown Rx [Fioricet 50-300-40 mg CAP] Butalb/Acetaminophen/Caffeine 1 cap PO Q8HR PRN #10 cap 01/18/20 Unknown Rx [Fioricet 50-300-40 mg CAP] Famotidine [Pepcid] 20 mg PO BID #60 tablet 01/18/20 Unknown Rx Albuterol Mdi (or & Nicu Only) 2 puff IH QID PRN #8.5 gram 02/19/20 Unknown Rx [ProAir HFA Inhaler] Prednisone [predniSONE 10 mg 10 mg PO .TAPER #1 tab.ds.pk 02/19/20 Unknown Rx (6-Day Pack, 21 Tabs)] Amoxicillin/K Clav Tab [Augmentin 1 tab PO Q12HR #20 tab 04/15/20 Unknown Rx 875 mg] amLODIPine 10 mg PO DAILY #30 tab 05/20/20 Unknown Rx Albuterol Mdi (or & Nicu Only) 2 puff IH Q4H PRN #8.5 gram 12/29/20 Unknown Rx [ProAir HFA Inhaler] Ketorolac [Toradol] 10 mg PO Q6H PRN #14 tablet 05/19/21 Unknown Rx methOCARBAMOL [Robaxin TAB] 750 mg PO Q8H #20 tablet 05/19/21 Unknown Rx amLODIPine 10 mg PO DAILY #30 tab 07/30/21 Unknown Rx Allergies Allergy/AdvReac Type Severity Reaction Status Date / Time sulfamethoxazole Allergy Itching Verified 10/24/21 08:52 [From Bactrim] trimethoprim [From Bactrim] Allergy Itching Verified 10/24/21 08:52 ED Review of Systems ROS: Stated complaint: CHEST PAIN Other details as noted in HPI Comment: All other systems reviewed and negative Constitutional: denies: chills, fever Respiratory: denies: cough, shortness of breath, SOB with exertion, SOB at rest Cardiovascular: chest pain. denies: palpitations, dyspnea on exertion Gastrointestinal: denies: abdominal pain, nausea, vomiting, diarrhea Musculoskeletal: denies: back pain Neurological: denies: headache, weakness Psychiatric: denies: depression, auditory hallucinations, visual hallucinations, homicidal thoughts, suicidal thoughts ED Past Medical Hx - Past Medical History Hx Hypertension: Yes Hx CVA: No Hx Heart Attack/AMI: No Hx Congestive Heart Failure: No Hx Diabetes: No Hx Deep Vein Thrombosis: No Hx Pulmonary Embolism: No Hx GERD: No Hx Asthma: Yes - Surgical History Additional Surgical History: hernia repair - Social History Smoking Status: Never Smoker Substance Use Type: None - Medications Home Medications: Home Medications Medication Instructions Recorded Confirmed Last Taken Type Fluticasone [Flonase] 1 spray NS QDAY #1 bottle 12/02/15 01/01/16 12/30/15 06:00 Rx Amoxicillin/K Clav Tab [Augmentin 1 tab PO Q12HR #20 tab 01/01/16 Unknown Rx 875 mg] amLODIPine 10 mg PO DAILY #30 tab 08/01/18 Unknown Rx Meclizine [Antivert] 25 mg PO DAILY #20 tablet 12/27/18 Unknown Rx Pseudoephedrine [Sudafed] 60 mg PO Q8H PRN #30 tablet 12/27/18 Unknown Rx Aspirin EC [Ecotrin] 325 mg PO QDAY 30 Days #30 07/09/19 Unknown Rx tablet.dr Butalb/Acetaminophen/Caffeine 1 cap PO Q8HR PRN #14 cap 10/23/19 Unknown Rx [Fioricet 50-300-40 mg CAP] Butalb/Acetaminophen/Caffeine 1 cap PO Q8HR PRN #10 cap 01/18/20 Unknown Rx [Fioricet 50-300-40 mg CAP] Famotidine [Pepcid] 20 mg PO BID #60 tablet 01/18/20 Unknown Rx Albuterol Mdi (or & Nicu Only) 2 puff IH QID PRN #8.5 gram 02/19/20 Unknown Rx [ProAir HFA Inhaler] Prednisone [predniSONE 10 mg 10 mg PO .TAPER #1 tab.ds.pk 02/19/20 Unknown Rx (6-Day Pack, 21 Tabs)] Amoxicillin/K Clav Tab [Augmentin 1 tab PO Q12HR #20 tab 04/15/20 Unknown Rx 875 mg] amLODIPine 10 mg PO DAILY #30 tab 05/20/20 Unknown Rx Albuterol Mdi (or & Nicu Only) 2 puff IH Q4H PRN #8.5 gram 12/29/20 Unknown Rx [ProAir HFA Inhaler] Ketorolac [Toradol] 10 mg PO Q6H PRN #14 tablet 05/19/21 Unknown Rx methOCARBAMOL [Robaxin TAB] 750 mg PO Q8H #20 tablet 05/19/21 Unknown Rx amLODIPine 10 mg PO DAILY #30 tab 07/30/21 Unknown Rx ED Physical Exam - General Limitations: No Limitations General appearance: alert, in no apparent distress - Head Head exam: Present: atraumatic, normocephalic, normal inspection - Eye Eye exam: Present: normal appearance - ENT ENT exam: Present: normal exam, normal orophraynx, mucous membranes moist - Neck Neck exam: Present: normal inspection, full ROM. Absent: tenderness, menin gismus - Respiratory Respiratory exam: Present: normal lung sounds bilaterally - Cardiovascular Cardiovascular Exam: Present: regular rate, normal rhythm, normal heart sounds - GI/Abdominal GI/Abdominal exam: Present: soft, normal bowel sounds. Absent: distended, tenderness, guarding, rebound, rigid, organomegaly, mass, bruit, pulsatile mass, hernia - Extremities Exam Extremities exam: Present: normal inspection, full ROM, normal capillary refill. Absent: tenderness, pedal edema, joint swelling - Back Exam Back exam: Present: normal inspection, full ROM. Absent: CVA tenderness (R), CVA tenderness (L) - Neurological Exam Neurological exam: Present: alert, oriented X3, CN II-XII intact, normal gait, reflexes normal. Absent: motor sensory deficit - Psychiatric Psychiatric exam: Present: normal mood - Skin Skin exam: Present: warm, intact, normal color ED Course Vital Signs 10/24/21 10/24/21 10/24/21 08:51 10:54 12:11 Temperature 98.8 F 98.7 F Pulse Rate 103 H Respiratory 20 20 Rate Blood Pressure 178/107 121/76 O2 Sat by Pulse 92 98 Oximetry ED Medical Decision Making - Lab Data Result diagrams: 10/24/21 09:25 10/24/21 09:25 - EKG Data -: EKG Interpreted by [place] EKG shows normal: sinus rhythm Rate: normal - EKG Data Interpretation: no acute changes - Radiology Data Radiology results: report reviewed - Medical Decision Making Patient is 46 years old male with history of hypertension. Patient presented to the ER complaining of chest pain started early this morning, substernal with no radiation. Patient stated that he was drinking alcohol a lot yesterday. Patient denied nausea or vomiting. No shortness of breath, fever or chills or cough. EKG is unremarkable. Labs reviewed and is unremarkable including a negative tro ponin x2. Chest x-ray is negative. D-dimer is unremarkable. Heart score is low. Patient advised to follow-up with his primary care physician in the next 2 to 3 days for outpatient cardiac work-up and to return to the ER if he develop any new symptoms. Critical care attestation.: If time is entered above; I have spent that time in minutes in the direct care of this critically ill patient, excluding procedure time. ED Disposition Clinical Impression: Acute chest pain Disposition: HOME / SELF CARE / HOMELESS Is pt being admited?: No Condition: Stable Instructions: Chest Pain (ED), Nonspecific Chest Pain, Adult Referrals: PRIMARY CARE,MD [Primary Care Provider] - 3-5 Days
--- NOTE | 2021-10-24 09:55 | XRay Report ---
CHEST 2 VIEWS INDICATION: chest pain. COMPARISON: 11/02/2020 FINDINGS: SUPPORT DEVICES: None. HEART: Within normal limits. LUNGS/PLEURA: No acute air space or interstitial disease. No pneumothorax. ADDITIONAL FINDINGS: None. IMPRESSION: 1. No acute findings. Signer Name: Harry Joiner MD Signed: 10/24/2021 9:51 AM Workstation Name: [id number]
[2021-10-24 10:02] LABS: Alanine Aminotransferase 38 units/L (7-56); Albumin 4.7 g/dL (3.9-5); BUN/Creatinine Ratio 14; Blood Urea Nitrogen 14 mg/dL (9-20); Calcium 9.2 mg/dL (8.4-10.2); Hemolysis Index 5
[2021-10-24 13:43] VITALS: BP 142/79
--- NOTE | 2021-10-26 10:45 | Electrocardiograph Report ---
[facility] Test Date: 2021-10-24 Test Time: 08:53:20 Pat Name: ROCHELLE MORSE Department: Room: Gender: [employer]: ERIKA : 1975 Requested By: JOSELUIS VIGIL Order Number: [id number] Reading MD: Ethel Morse Measurements Intervals [place] Rate: 77 P: 62 KS: 154 QRS: 4 QRSD: 109 T: 21 QT: 396 QTc: 450 Interpretive Statements Sinus rhythm No previous ECG available for comparison Electronically Signed On 10-26-2021 10:45:13 EST by Ethel Morse
== END 2021-10-24 13:45 | disposition home or self-care (01) ==
LOC: ED 08:47
DX: R07.9 Chest pain, unspecified (principal); I10 Essential (primary) hypertension; J45.909 Unspecified asthma, uncomplicated
CPT/HCPCS: 36415; 71046; 80053; 83690; 84484; 85025; 85379; 93005; 99283

== ENCOUNTER 2022-01-18 15:28 | Emergency (ER) | payer SELFPAY ==
[2022-01-18 15:50] VITALS: BP 146/87
[2022-01-18] MEDS ORDERED: ACETAMINOPHEN 325 MG TAB PO ONE (16:13)
[2022-01-18] MEDS ORDERED: FAMOTIDINE 20 MG TAB PO ONE (16:13)
[2022-01-18] MEDS ORDERED: IBUPROFEN 400 MG TAB PO ONE (16:13)
--- NOTE | 2022-01-18 16:14 | Emergency Department Report ---
ED General Adult HPI - General Chief complaint: Chest Pain Stated complaint: Chest wall pain, dizziness after drinking last night Time Seen by Provider: 01/18/22 16:09 Source: patient, RN notes reviewed, old records reviewed Mode of arrival: Ambulatory Limitations: No Limitations - History of Present Illness Initial comments: The patient is a pleasant 46-year-old gentleman. He presents to the ER today with a complaint of central chest pain, which did not radiate to back, arms, or neck, without vomiting, diaphoresis or exertional shortness of breath. Patient reports that he believes he "went out too hard last night", and consumed excessive recreational alcohol. He denies IV drug use, cocaine, methamphetamines. He also reports that when he he had this central chest pain, he felt a little bit dizzy and lightheaded. The pain lasted for a few seconds. It is resolved at this time. The patient currently denies headache, neck pain, abdominal pain, vomiting, diaphoresis, exertional shortness of breath, and he reports a positive family history of maternal lupus, hypertension, paternal hypertension, and a history of hypertension and diabetes in his brother. However, he denies a known history of DVT/PE in himself, and ACS in himself and his family. He feels like he is at his baseline at this time. -: Sudden Location: chest Consistency: now resolved Improves with: none Worsens with: none Associated Symptoms: denies other symptoms - Related Data Previous Rx's Medication Instructions Recorded Last Taken Type Fluticasone [Flonase] 1 spray NS QDAY #1 bottle 12/02/15 12/30/15 06:00 Rx amLODIPine 10 mg PO DAILY #30 tab 08/01/18 Unknown Rx Aspirin EC [Ecotrin] 325 mg PO QDAY 30 Days #30 07/09/19 Unknown Rx tablet. Famotidine [Pepcid] 20 mg PO BID #60 tablet 01/18/20 Unknown Rx Albuterol Mdi (or & Nicu Only) 2 puff IH QID PRN #8.5 gram 02/19/20 Unknown Rx [ProAir HFA Inhaler] Prednisone [predniSONE 10 mg 10 mg PO .TAPER #1 tab.ds.pk 02/19/20 Unknown Rx (6-Day Pack, 21 Tabs)] amLODIPine 10 mg PO DAILY #30 tab 05/20/20 Unknown Rx Albuterol Mdi (or & Nicu Only) 2 puff IH Q4H PRN #8.5 gram 12/29/20 Unknown Rx [ProAir HFA Inhaler] amLODIPine 10 mg PO DAILY #30 tab 07/30/21 Unknown Rx Acetaminophen [Non-Aspirin Extra 650 mg PO Q6HR PRN #30 tablet 01/18/22 Unknown Rx Strength] Esomeprazole Magnesium [NexIUM] 40 mg PO QDAY #30 capsule. 01/18/22 Unknown Rx Allergies Allergy/AdvReac Type Severity Reaction Status Date / Time sulfamethoxazole Allergy Itching Verified 10/24/21 08:52 [From Bactrim] trimethoprim [From Bactrim] Allergy Itching Verified 10/24/21 08:52 ED Review of Systems ROS: Stated complaint: CHEST PAIN/DIZZY Other details as noted in HPI Comment: All other systems reviewed and negative Constitutional: other (Temporary dizziness and lightheadedness) Cardiovascular: chest pain ED Past Medical Hx - Past Medical History Hx Hypertension: Yes Hx CVA: No Hx Heart Attack/AMI: No Hx Congestive Heart Failure: No Hx Diabetes: No Hx Deep Vein Thrombosis: No Hx Pulmonary Embolism: No Hx GERD: No Hx Asthma: Yes - Surgical History Additional Surgical History: hernia repair - Social History Smoking Status: Never Smoker Substance Use Type: None - Medications Home Medications: Home Medications Medication Instructions Recorded Confirmed Last Taken Type Fluticasone [Flonase] 1 spray NS QDAY #1 bottle 12/02/15 01/01/16 12/30/15 06:00 Rx amLODIPine 10 mg PO DAILY #30 tab 08/01/18 Unknown Rx Aspirin EC [Ecotrin] 325 mg PO QDAY 30 Days #30 07/09/19 Unknown Rx tablet. Famotidine [Pepcid] 20 mg PO BID #60 tablet 01/18/20 Unknown Rx Albuterol Mdi (or & Nicu Only) 2 puff IH QID PRN #8.5 gram 02/19/20 Unknown Rx [ProAir HFA Inhaler] Prednisone [predniSONE 10 mg 10 mg PO .TAPER #1 tab.ds.pk 02/19/20 Unknown Rx (6-Day Pack, 21 Tabs)] amLODIPine 10 mg PO DAILY #30 tab 05/20/20 Unknown Rx Albuterol Mdi (or & Nicu Only) 2 puff IH Q4H PRN #8.5 gram 12/29/20 Unknown Rx [ProAir HFA Inhaler] amLODIPine 10 mg PO DAILY #30 tab 07/30/21 Unknown Rx Acetaminophen [Non-Aspirin Extra 650 mg PO Q6HR PRN #30 tablet 01/18/22 Unknown Rx Strength] Esomeprazole Magnesium [NexIUM] 40 mg PO QDAY #30 capsule. 01/18/22 Unknown Rx ED Physical Exam - General Limitations: No Limitations General appearance: alert, in no apparent distress - Head Head exam: Present: atraumatic, normocephalic - Eye Eye exam: Present: normal appearance, EOMI. Absent: nystagmus - ENT ENT exam: Present: normal exam, normal orophraynx, mucous membranes moist, normal external ear exam - Neck Neck exam: Present: normal inspection, full ROM. Absent: tenderness, meningismus - Respiratory Respiratory exam: Present: normal lung sounds bilaterally, chest wall tenderness. Absent: respiratory distress, wheezes, rales, rhonchi, stridor, decreased breath sounds - Cardiovascular Cardiovascular Exam: Present: regular rate, normal rhythm, normal heart sounds. Absent: bradycardia, tachycardia, irregular rhythm, systolic murmur, diastolic murmur, rubs, gallop - GI/Abdominal GI/Abdominal exam: Present: soft. Absent: distended, tenderness, guarding, rebound, rigid, pulsatile mass - Rectal Rectal exam: Present: deferred - Extremities Exam Extremities exam: Present: normal inspection, full ROM, other (2+ pulses noted in the bilateral upper and lower extremities. There is no palpable cord. negative Homans sign. Muscular compartments are soft. The pelvis is stable.). Absent: pedal edema, calf tenderness - Back Exam Back exam: Present: normal inspection, full ROM. Absent: tenderness, CVA tenderness (R), CVA tenderness (L), paraspinal tenderness, vertebral tenderness - Neurological Exam Neurological exam: Present: alert (There is no past pointing. There is normal xpmc-[id number]-dwzd. There is no pronator drift), oriented X3, normal gait, other (No facial droop. Tongue midline. Extraocular movements intact bilaterally. Facial sensation intact to light touch in V1, V2, V3 distribution bilaterally. 5 and a 5 strength in 4 extremities. Sensation intact to light touch in 4 extremities.). Absent: motor sensory deficit - Psychiatric Psychiatric exam: Present: normal affect, normal mood - Skin Skin exam: Present: warm, dry, intact, normal color. Absent: rash ED Course Vital Signs 01/18/22 15:48 Temperature 98.9 F Pulse Rate 84 Respiratory 16 Rate Blood Pressure 146/87 [Left] O2 Sat by Pulse 97 Oximetry - Reevaluation(s) Reevaluation #1: 01/18/22 19:32 Differential diagnosis, including but not limited to: GERD, gastritis, hiatal hernia, pneumonia, costochondritis, anxiety, coronary artery disease Assessment and plan: 46-year-old gentleman, who is not currently tachycardic, tachypneic or hypoxic, who denies DVT and pulmonary embolism risk factors, who is low risk by Wells criteria for pulmonary embolism, PERC negative EKG unchange d x2, troponin negative x2, EKG unchanged x2, and unchanged from prior. Myocardial infarction is ruled out. Low risk for major adverse cardiac event as per heart score. Patient has equal pulses in the upper and lower extremities, no pulsatile abdominal mass, and an unremarkable x-ray of the chest, therefore, aortic disease is very unlikely. Patient at low risk for major adverse cardiac event as per heart score. Patient has presented to this hospital in department multiple times for complain ts of chest pain. He is also had negative D-dimers in the past. He is resting comfortably in his stretcher, and in no acute distress. Patient advised that he may follow-up with an outpatient sporting goods sales associate. Return precautions reviewed. All questions answered. Counseled to consume alcohol in moderation. 01/18/22 20:12 Patient resting comfortably. Troponin negative x2. No acute distress. EKG unchanged x2. Discharged with outpatient follow-up ED Medical Decision Making - Lab Data Result diagrams: 01/18/22 16:18 01/18/22 16:18 Vital Signs 01/18/22 15:48 Temperature 98.9 F Pulse Rate 84 Respiratory 16 Rate Blood Pressure 146/87 [Left] O2 Sat by Pulse 97 Oximetry Lab Results 01/18/22 01/18/22 01/18/22 Range/Units 16:18 16:18 16:18 WBC 6.2 (4.5-11.0) K/mm3 RBC 4.98 (3.65-5.03) M/mm3 Hgb 14.1 (11.8-15.2) gm/dl Hct 43.1 (35.5-45.6) % MCV 87 (84-94) fl MCH 28 (28-32) pg MCHC 33 (32-34) % RDW 14.4 (13.2-15.2) % Plt Count 301 (140-440) K/mm3 PT 13.8 (12.2-14.9) Sec. INR 0.96 (0.87-1.13) Sodium 138 (137-145) mmol/L Potassium 3.7 (3.6-5.0) mmol/L Chloride 99.6 (98-107) mmol/L Carbon Dioxide 23 (22-30) mmol/L Anion Gap 19 mmol/L BUN 15 (9-20) mg/dL Creatinine 1.0 (0.8-1.3) mg/dL Estimated GFR > 60 ml/min BUN/Creatinine Ratio 15 % Glucose 126 H (75-100) mg/dL Calcium 9.3 (8.4-10.2) mg/dL Magnesium (1.7-2.3) mg/dL Total Creatine Kinase (55-170) units/L Troponin T < 0.010 (0.00-0.029) ng/mL 01/18/22 01/18/22 Range/Units 16:18 18:19 WBC (4.5-11.0) K/mm3 RBC (3.65-5.03) M/mm3 Hgb (11.8-15.2) gm/dl Hct (35.5-45.6) % MCV (84-94) fl MCH (28-32) pg MCHC (32-34) % RDW (13.2-15.2) % Plt Count (140-440) K/mm3 PT (12.2-14.9) Sec. INR (0.87-1.13) Sodium (137-145) mmol/L Potassium (3.6-5.0) mmol/L Chloride (98-107) mmol/L Carbon Dioxide (22-30) mmol/L Anion Gap mmol/L BUN (9-20) mg/dL Creatinine (0.8-1.3) mg/dL Estimated GFR ml/min BUN/Creatinine Ratio % Glucose (75-100) mg/dL Calcium (8.4-10.2) mg/dL Magnesium 1.70 (1.7-2.3) mg/dL Total Creatine Kinase 716 H (55-170) units/L Troponin T < 0.010 (0.00-0.029) ng/mL - EKG Data -: EKG Interpreted by Me EKG shows normal: sinus rhythm Rate: normal - EKG Data Interpretation: unchanged when compared t (10/24/2021) 01/18/22 19:31 EKG #1 is interpreted at 15: 57 Sinus rhythm, 79 bpm. Borderline leftward axis deviation. High left ventricular voltage. Intervals unremarkable. The EKG is not a STEMI. EKG #2 is interpreted at 17: 42. It is unchanged from the first EKG. It is not a STEMI. - Radiology Data Radiology results: pending, report reviewed, image reviewed Critical care attestation.: If time is entered above; I have spent that time in minutes in the direct care of this critically ill patient, excluding procedure time. ED Disposition Clinical Impression: Nonspecific chest pain Disposition: HOME / SELF CARE / HOMELESS Is pt being admited?: No Does the pt Need Aspirin: No Condition: Good Instructions: Nonspecific Chest Pain, Adult Additional Instructions: Patient may take the prescribed pain medications as needed and directed. We recommend follow-up with an outpatient sporting goods sales associate or primary care doctor within the next 3 to 5 days. Minimize/avoid consumption of Motrin, ibuprofen, Naprosyn, Aleve, alcohol, tobacco and smoke products. Avoid consumption of heavy and spicy foods. Please return to the emergency room right away with new pain, worsened pain, migration of pain, projectile vomiting, change in mental status, confusion, inability tolerate liquid feeds, new, worsened or different symptoms not present on the initial emergency room evaluation Prescriptions: Esomeprazole Magnesium [NexIUM] 40 mg PO QDAY #30 capsule. Acetaminophen [Non-Aspirin Extra Strength] 650 mg PO Q6HR PRN #30 tablet PRN Reason: Pain , Severe (7-10) Referrals: [facility] [Provider Group] - 3-5 Days [facility] [Provider Group] - 3-5 Days [facility] [Provider Group] - 3-5 Days Forms: Work/School Release Form(ED) Heart Score - HEART Score History: Slightly suspicious EKG: Non-specific Age: 45-65 Risk factors: 1-2 risk factors Troponin: < normal limit HEART Score: 3 - EKG Read Time Time EKG Completed: 15:57 EKG Read Time: 15:57 - Critical Actions Critical Actions: 0-3 pts:0.9-1.7%risk of adverse cardiac event.Candidate for discharge
[2022-01-18 16:40] LABS: Hematocrit 43.1 % (35.5-45.6); Hemoglobin 14.1 gm/dl (11.8-15.2); Mean Corpuscular HGB Conc 33 % (32-34); Mean Corpuscular Volume 87 fl (84-94); Platelet Count 301 K/mm3 (140-440); Red Blood Count 4.98 M/mm3 (3.65-5.03); Red Cell Distribution Width 14.4 % (13.2-15.2)
--- NOTE | 2022-01-18 16:40 | XRay Report ---
CHEST 2 VIEWS INDICATION / CLINICAL INFORMATION: Chest Pain. COMPARISON: 10/24/2021 FINDINGS: SUPPORT DEVICES: None. HEART / MEDIASTINUM: No significant abnormality. LUNGS / PLEURA: No significant pulmonary or pleural abnormality. No pneumothorax. ADDITIONAL FINDINGS: No significant additional findings. IMPRESSION: 1. No acute findings. No interval change. Signer Name: Ruth Rucker MD Signed: 01/18/2022 4:35 PM Workstation Name: [email or web address]
[2022-01-18 16:53] LABS: INR 0.96 (0.87-1.13)
[2022-01-18 17:00] LABS: BUN/Creatinine Ratio 15; Blood Urea Nitrogen 15 mg/dL (9-20); Calcium 9.3 mg/dL (8.4-10.2); Hemolysis Index 7
--- NOTE | 2022-01-19 10:56 | Electrocardiograph Report ---
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
--- NOTE | 2022-01-19 10:56 | Electrocardiograph Report ---
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
== END 2022-01-18 20:31 | disposition home or self-care (01) ==
LOC: ED 15:28
DX: R07.9 Chest pain, unspecified (principal); I10 Essential (primary) hypertension; Z88.2 Allergy status to sulfonamides; J45.909 Unspecified asthma, uncomplicated
CPT/HCPCS: 36415; 71046; 80048; 82550; 83735; 84484; 85027; 85610; 93005; 99284

== ENCOUNTER 2022-05-09 13:23 | Emergency (ER) | payer SELFPAY ==
[2022-05-09 14:08] VITALS: BP 138/81
[2022-05-09 14:45] LABS: Basophils # (Auto) 0.1 K/mm3 (0.0-0.1); Basophils % (Auto) 1.3 % (0.0-1.8); Eosinophils # (Auto) 0.2 K/mm3 (0.0-0.4); Eosinophils % (Auto) 2.4 % (0.0-4.3); Hematocrit 43.7 % (35.5-45.6); Hemoglobin 14.8 gm/dl (11.8-15.2); Lymphocytes # (Auto) 1.7 K/mm3 (1.2-5.4); Mean Corpuscular HGB Conc 34 % (32-34); Mean Corpuscular Volume 85 fl (84-94); Monocytes # (Auto) 0.5 K/mm3 (0.0-0.8); Monocytes % (Auto) 8.4 % (0.0-7.3); Platelet Count 287 K/mm3 (140-440); Red Blood Count 5.14 M/mm3 (3.65-5.03); Red Cell Distribution Width 14.4 % (13.2-15.2)
--- NOTE | 2022-05-09 15:05 | XRay Report ---
CHEST 2 VIEWS INDICATION / CLINICAL INFORMATION: chest pain. COMPARISON: 2 views of the chest from 01/18/2022. FINDINGS: SUPPORT DEVICES: None. HEART / MEDIASTINUM: No significant abnormality. LUNGS / PLEURA: No significant pulmonary abnormality. No significant pleural effusion. No pneumothora x. ADDITIONAL FINDINGS: No significant additional findings. IMPRESSION: 1. No acute abnormality of the chest. Signer Name: Ahsan Joiner MD Signed: 05/09/2022 3:01 PM Workstation Name: [id number]
[2022-05-09 15:10] LABS: Alanine Aminotransferase 24 units/L (7-56); Albumin 4.6 g/dL (3.9-5); BUN/Creatinine Ratio 16; Blood Urea Nitrogen 16 mg/dL (9-20); Calcium 9.7 mg/dL (8.4-10.2); Hemolysis Index 4
--- NOTE | 2022-05-09 20:02 | Electrocardiograph Report ---
[facility] Test Date: 2022-05-09 Test Time: 14:10:38 Pat Name: ROCHELLE MORSE Department: Room: Gender: M Certified Nurse Midwife: RENATA : 1975 Requested By: KIM LEAL Order Number: [id number] Reading MD: Ethel Morse Measurements Intervals [place] Rate: 69 P: 2 VT: 181 QRS: -41 QRSD: 104 T: 10 QT: 384 QTc: 411 Interpretive Statements Sinus rhythm Left axis deviation Compared to ECG 01/18/2022 17:42:30 No significant change Electronically Signed On 05-09-2022 20:01:41 EDT by Ethel Morse
== END 2022-05-10 11:55 | disposition left against medical advice (07) ==
LOC: ED 13:23
DX: R07.9 Chest pain, unspecified (principal); Z53.21 Procedure and treatment not carried out due to patient leaving prior to being seen by health care provider
CPT/HCPCS: 36415; 71046; 80053; 84484; 85025; 93005

== ENCOUNTER 2022-05-21 18:18 | Emergency (ER) | payer SELFPAY ==
[2022-05-21 19:24] VITALS: BP 149/90
[2022-05-21 20:03] LABS: Basophils # (Auto) 0.1 K/mm3 (0.0-0.1); Basophils % (Auto) 1.3 % (0.0-1.8); Eosinophils # (Auto) 0.3 K/mm3 (0.0-0.4); Eosinophils % (Auto) 3.8 % (0.0-4.3); Hematocrit 40.2 % (35.5-45.6); Hemoglobin 13.3 gm/dl (11.8-15.2); Lymphocytes # (Auto) 2.2 K/mm3 (1.2-5.4); Lymphocytes % (Auto) 29.9 % (13.4-35.0); Mean Corpuscular HGB Conc 33 % (32-34); Mean Corpuscular Volume 86 fl (84-94); Monocytes # (Auto) 0.7 K/mm3 (0.0-0.8); Monocytes % (Auto) 9.4 % (0.0-7.3); Platelet Count 271 K/mm3 (140-440); Red Blood Count 4.68 M/mm3 (3.65-5.03); Red Cell Distribution Width 14.2 % (13.2-15.2)
--- NOTE | 2022-05-21 20:20 | XRay Report ---
CHEST 2 VIEWS INDICATION / CLINICAL INFORMATION: CHEST PAIN. COMPARISON: 05/09/2022 FINDINGS: SUPPORT DEVICES: None. HEART / MEDIASTINUM: No significant abnormality. LUNGS / PLEURA: No significant pulmonary or pleural abnormality. No pneumothorax. ADDITIONAL FINDINGS: No significant additional findings. IMPRESSION: 1. No acute findings. Signer Name: Ayush Pace MD Signed: 05/21/2022 8:15 PM Workstation Name: [id number]
[2022-05-21 20:28] LABS: Alanine Aminotransferase 26 units/L (7-56); Albumin 4.4 g/dL (3.9-5); BUN/Creatinine Ratio 14; Blood Urea Nitrogen 15 mg/dL (9-20); Calcium 9.4 mg/dL (8.4-10.2); Hemolysis Index 5
--- NOTE | 2022-05-24 09:58 | Electrocardiograph Report ---
[facility] Test Date: 2022-05-21 Test Time: 19:23:14 Pat Name: ROCHELLE MORSE Department: Room: Gender: M Table Games Shift Manager: LUCIANA : 1975 Requested By: ED DOC Order Number: [id number] Reading MD: Rupert Billings Measurements Intervals [place] Rate: 65 P: 36 [place]: 188 QRS: -6 QRSD: 120 T: 41 QT: 468 QTc: 489 Interpretive Statements Sinus rhythm IVCD, consider RBBB Compared to ECG 05/09/2022 14:10:38 Left-axis deviation no longer present Electronically Signed On 05-24-2022 9:57:29 EDT by Rupert Billings
== END 2022-05-23 12:36 | disposition left against medical advice (07) ==
LOC: ED 18:18
DX: R07.9 Chest pain, unspecified (principal); R42 Dizziness and giddiness; Z53.21 Procedure and treatment not carried out due to patient leaving prior to being seen by health care provider
CPT/HCPCS: 36415; 71046; 80053; 84484; 85025; 93005

== ENCOUNTER 2022-06-15 02:30 | Emergency (ER) | payer OTHER ==
[2022-06-15 02:42] VITALS: BP 187/105
--- NOTE | 2022-06-15 03:28 | XRay Report ---
Soft tissue neck INDICATION: Difficulty swallowing IMPRESSION:: Prevertebral soft tissues are unremarkable. Calcaneus is overlying the carotid vessels b ilaterally. No radiopaque foreign body is definitely seen. If symptoms persist follow-up with barium swallow could be performed. Signer Name: Talon Rodrigez MD Signed: 06/15/2022 3:24 AM Workstation Name: [id number]
== END 2022-06-15 04:13 | disposition left against medical advice (07) ==
LOC: ED 02:30
DX: Z00.00 Encounter for general adult medical examination without abnormal findings (principal); Z53.21 Procedure and treatment not carried out due to patient leaving prior to being seen by health care provider
CPT/HCPCS: 70360

== ENCOUNTER 2022-07-02 09:10 | Emergency (ER) | payer OTHER ==
[2022-07-02 09:33] VITALS: BP 138/93
--- NOTE | 2022-07-02 10:28 | XRay Report ---
NECK SOFT TISSUE 2 VIEWS INDICATION: suspected food. Patient feels as if something is stuck in his throat. COMPARISON: None. IMPRESSION: No obvious radiopaque foreign body or food bolus is detected in the upper aerodigestive tract. The prevertebral soft tissues, base of the tongue, vallecula and epiglottis are unremarkable. The airway appears widely patent. There are mild degenerative changes in the mid thoracic spine. Signer Name: Vel Sanchez Jr, MD Signed: 07/02/2022 10:23 AM Workstation Name: [id number]
--- NOTE | 2022-07-02 11:44 | Emergency Department Report ---
ED ENT HPI - General Chief complaint: Sore Throat Stated complaint: THROAT CLOG W/FOOD DIFF BREATHING Time Seen by Provider: 07/02/22 11:09 Source: patient Mode of arrival: Ambulatory Limitations: No Limitations - History of Present Illness MD complaint: sore throat, difficulty swallowing -: Gradual Severity: mild, moderate Quality: dull - Related Data Previous Rx's Medication Instructions Recorded Last Taken Type Fluticasone [Flonase] 1 spray NS QDAY #1 bottle 12/02/15 12/30/15 06:00 Rx amLODIPine 10 mg PO DAILY #30 tab 08/01/18 Unknown Rx Aspirin EC [Ecotrin] 325 mg PO QDAY 30 Days #30 07/09/19 Unknown Rx tablet. Famotidine [Pepcid] 20 mg PO BID #60 tablet 01/18/20 Unknown Rx Albuterol Mdi (or & Nicu Only) 2 puff IH QID PRN #8.5 gram 02/19/20 Unknown Rx [ProAir HFA Inhaler] Prednisone [predniSONE 10 mg 10 mg PO .TAPER #1 tab.ds.pk 02/19/20 Unknown Rx (6-Day Pack, 21 Tabs)] amLODIPine 10 mg PO DAILY #30 tab 05/20/20 Unknown Rx Albuterol Mdi (or & Nicu Only) 2 puff IH Q4H PRN #8.5 gram 12/29/20 Unknown Rx [ProAir HFA Inhaler] amLODIPine 10 mg PO DAILY #30 tab 07/30/21 Unknown Rx Acetaminophen [Non-Aspirin Extra 650 mg PO Q6HR PRN #30 tablet 01/18/22 Unknown Rx Strength] Esomeprazole Magnesium [NexIUM] 40 mg PO QDAY #30 capsule. 01/18/22 Unknown Rx Allergies Allergy/AdvReac Type Severity Reaction Status Date / Time sulfamethoxazole Allergy Itching Verified 10/24/21 08:52 [From Bactrim] trimethoprim [From Bactrim] Allergy Itching Verified 10/24/21 08:52 ED Dental HPI - General Chief complaint: Sore Throat Stated complaint: THROAT CLOG W/FOOD DIFF BREATHING Time Seen by Provider: 07/02/22 11:09 Source: patient Mode of arrival: Ambulatory Limitations: No Limitations - Related Data Previous Rx's Medication Instructions Recorded Last Taken Type Fluticasone [Flonase] 1 spray NS QDAY #1 bottle 12/02/15 12/30/15 06:00 Rx amLODIPine 10 mg PO DAILY #30 tab 08/01/18 Unknown Rx Aspirin EC [Ecotrin] 325 mg PO QDAY 30 Days #30 07/09/19 Unknown Rx tablet. Famotidine [Pepcid] 20 mg PO BID #60 tablet 01/18/20 Unknown Rx Albuterol Mdi (or & Nicu Only) 2 puff IH QID PRN #8.5 gram 02/19/20 Unknown Rx [ProAir HFA Inhaler] Prednisone [predniSONE 10 mg 10 mg PO .TAPER #1 tab.ds.pk 02/19/20 Unknown Rx (6-Day Pack, 21 Tabs)] amLODIPine 10 mg PO DAILY #30 tab 05/20/20 Unknown Rx Albuterol Mdi (or & Nicu Only) 2 puff IH Q4H PRN #8.5 gram 12/29/20 Unknown Rx [ProAir HFA Inhaler] amLODIPine 10 mg PO DAILY #30 tab 07/30/21 Unknown Rx Acetaminophen [Non-Aspirin Extra 650 mg PO Q6HR PRN #30 tablet 01/18/22 Unknown Rx Strength] Esomeprazole Magnesium [NexIUM] 40 mg PO QDAY #30 capsule. 01/18/22 Unknown Rx Allergies Allergy/AdvReac Type Severity Reaction Status Date / Time sulfamethoxazole Allergy Itching Verified 10/24/21 08:52 [From Bactrim] trimethoprim [From Bactrim] Allergy Itching Verified 10/24/21 08:52 ED Review of Systems ROS: Stated complaint: THROAT CLOG W/FOOD DIFF BREATHING Other details as noted in HPI Comment: All other systems reviewed and negative ED Past Medical Hx - Past Medical History Hx Hypertension: Yes Hx CVA: No Hx Heart Attack/AMI: No Hx Congestive Heart Failure: No Hx Diabetes: No Hx Deep Vein Thrombosis: No Hx Pulmonary Embolism: No Hx GERD: No Hx Asthma: Yes - Surgical History Additional Surgical History: hernia repair - Social History Smoking Status: Never Smoker - Medications Home Medications: Home Medications Medication Instructions Recorded Confirmed Last Taken Type Fluticasone [Flonase] 1 spray NS QDAY #1 bottle 12/02/15 01/01/16 12/30/15 06:00 Rx amLODIPine 10 mg PO DAILY #30 tab 08/01/18 Unknown Rx Aspirin EC [Ecotrin] 325 mg PO QDAY 30 Days #30 07/09/19 Unknown Rx tablet. Famotidine [Pepcid] 20 mg PO BID #60 tablet 01/18/20 Unknown Rx Albuterol Mdi (or & Nicu Only) 2 puff IH QID PRN #8.5 gram 02/19/20 Unknown Rx [ProAir HFA Inhaler] Prednisone [predniSONE 10 mg 10 mg PO .TAPER #1 tab.ds.pk 02/19/20 Unknown Rx (6-Day Pack, 21 Tabs)] amLODIPine 10 mg PO DAILY #30 tab 05/20/20 Unknown Rx Albuterol Mdi (or & Nicu Only) 2 puff IH Q4H PRN #8.5 gram 12/29/20 Unknown Rx [ProAir HFA Inhaler] amLODIPine 10 mg PO DAILY #30 tab 07/30/21 Unknown Rx Acetaminophen [Non-Aspirin Extra 650 mg PO Q6HR PRN #30 tablet 01/18/22 Unknown Rx Strength] Esomeprazole Magnesium [NexIUM] 40 mg PO QDAY #30 capsule. 01/18/22 Unknown Rx ED Physical Exam - General Limitations: No Limitations ED Course Vital Signs 07/02/22 09:26 Temperature 98.4 F Pulse Rate 71 Respiratory 18 Rate Blood Pressure 138/93 [Left] O2 Sat by Pulse 98 Oximetry ED Medical Decision Making - Radiology Data Radiology results: report reviewed [place] [id number] XRay Report Signed Patient: ROCHELLE MORSE MR#: [id number] : 1975 Acct:[id number] Age/Sex: 46 / M ADM Date: 07/02/22 Loc: ED Attending Dr: Ordering Physician: BARRY DIAZ MD Date of Service: 07/02/22 Procedure(s): XR neck soft tissue Accession Number(s): [id number] cc: ED MD EMILY Fluoro Time In Minutes: NECK SOFT TISSUE 2 VIEWS INDICATION: suspected food. Patient feels as if something is stuck in his throat. COMPARISON: None. IMPRESSION: No obvious radiopaque foreign body or food bolus is detected in the upper aerodigestive tract. The prevertebral soft tissues, base of the tongue, vallecula and epiglottis are unremarkable. The airway appears widely patent. There are mild degenerative changes in the mid thoracic spine. Signer Name: Vel Hathaway Jr, MD Signed: 07/02/2022 10:23 AM Workstation Name: [id number] Transcribed By: TTR Dictated By: VEL HATHAWAY JR, MD Electronically Authenticated By: VEL HATHAWAY JR, MD Signed Date/Time: 07/02/22 1023 DD/ 1022 TD/TT: Critical care attestation.: If time is entered above; I have spent that time in minutes in the direct care of this critically ill patient, excluding procedure time. ED Disposition Condition: Stable
== END 2022-07-02 12:40 | disposition home or self-care (01) ==
LOC: ED 09:10
DX: J02.9 Acute pharyngitis, unspecified (principal); I10 Essential (primary) hypertension; J45.909 Unspecified asthma, uncomplicated; Z91.09 Other allergy status, other than to drugs and biological substances
CPT/HCPCS: 70360; 99283

== ENCOUNTER 2022-07-03 16:56 | Emergency (ER) | payer OTHER ==
[2022-07-03] MEDS: ASPIRIN 325 MG TAB PO ONE ×2 (17:02→17:03)
--- NOTE | 2022-07-03 17:35 | XRay Report ---
CHEST 2 VIEWS INDICATION / CLINICAL INFORMATION: CP. Chest pain COMPARISON: 05/21/22 FINDINGS: SUPPORT DEVICES: None. HEART / MEDIASTINUM: No significant abnormality. LUNGS / PLEURA: No significant pulmonary or pleural abnormality. No pneumothorax. ADDITIONAL FINDINGS: No significant additional findings. IMPRESSION: 1. No acute findings. Signer Name: Last Rader MD Signed: 07/03/2022 5:31 PM Workstation Name: [id number]
[2022-07-03 18:39] LABS: Basophils # (Auto) 0.1 K/mm3 (0.0-0.1); Basophils % (Auto) 0.9 % (0.0-1.8); Eosinophils # (Auto) 0.1 K/mm3 (0.0-0.4); Eosinophils % (Auto) 1.9 % (0.0-4.3); Hematocrit 44.9 % (35.5-45.6); Hemoglobin 14.8 gm/dl (11.8-15.2); Lymphocytes # (Auto) 1.7 K/mm3 (1.2-5.4); Lymphocytes % (Auto) 25.3 % (13.4-35.0); Mean Corpuscular HGB Conc 33 % (32-34); Mean Corpuscular Volume 87 fl (84-94); Monocytes # (Auto) 0.4 K/mm3 (0.0-0.8); Monocytes % (Auto) 6.4 % (0.0-7.3); Platelet Count 294 K/mm3 (140-440); Red Blood Count 5.19 M/mm3 (3.65-5.03); Red Cell Distribution Width 14.5 % (13.2-15.2)
[2022-07-03 18:51] LABS: Alanine Aminotransferase 34 units/L (7-56); Albumin 4.9 g/dL (3.9-5); BUN/Creatinine Ratio 12; Blood Urea Nitrogen 13 mg/dL (9-20); Calcium 9.4 mg/dL (8.4-10.2); Hemolysis Index 12
--- NOTE | 2022-07-04 01:01 | Emergency Department Report ---
<AABD ECHOLS - Last Filed: 07/04/22 03:55> ED Chest Pain HPI - General Chief Complaint: Chest Pain Stated Complaint: CHEST PAIN Time Seen by Provider: 07/04/22 00:32 Source: patient Mode of arrival: Ambulatory Limitations: No Limitations - History of Present Illness Initial Comments: Patient is a 46-year-old male who presents with onset of chest pain at approximately 4:00 PM today in the mid chest. He states it was a squeezing type pain initially and then has had alternating dull and sharp pain but overall its been constant. No change with inspiration or movement. He does state that prior to the onset of the pain he was working underneath a car in the heat and then he and his son went in to watch a football game and while he was watching the game he had the onset of the pain. Pain was 8 at its worst but is 2 out of 10 at this time. He states that he took aspirin shortly after onset of the pain and it subsided to the 2 out of 10 over the initial 2 hours. Pain was nonrheumatic radiating without exacerbating or alleviating factors except for the aspirin. He has had some shortness of breath with it and states he was very anxious because he was nervous that it was his heart. He has 2 uncles that had heart issues after the age of 50. Patient does have a history of hypertension and his hemoglobin A1c was "borderline." No hyperlipidemia or tobacco use. No family history other than above. He is slightly overweight. Patient states that up until the summer he was walking a mile to work somewhat regularly but the last time he is done that was 2 weeks ago because of the heat and he states he did not have any episodes of chest pain during that time period. There is no nausea vomiting or diaphoresis with his chest pain. He has had similar episodes in the past but never as severe as today. In fact, the patient has been here in our ER 3 times in the last couple months for pain in his chest but has always left prior to being seen. He states overall during that time. His general state of health has been normal. No fatigue swelling of the ankles or dyspnea on exertion. He does state however that he has had some occasional palpitations. Patient does state he took his amlodipine at his usual time this morning MD Complaint: chest pain (See above) -: This afternoon (4 PM) Onset: during rest (While watching a football game that was not necessarily stressful.) Pain Location: substernal Pain Radiation: none Severity scale (0 -10): 7 Quality: sharp, dull, squeezing Consistency: constant (With improvement down to 2 out of 10) Improves With: other (2 hours after aspirin) Worsens With: nothing re: dyspnea. denies: nausea, vomting, diaphoresis, sense of impending doom Other Symptoms: palpitations. denies: cough, fever, syncope, rash, acid taste in mouth, leg swelling, burping Treatments Prior to Arrival: aspirin Aspirin use within the Past 7 Days: (0) No (Not before today) - Related Data Previous Rx's Medication Instructions Recorded Last Taken Type Fluticasone [Flonase] 1 spray NS QDAY #1 bottle 12/02/15 12/30/15 06:00 Rx amLODIPine 10 mg PO DAILY #30 tab 08/01/18 Unknown Rx Aspirin EC [Ecotrin] 325 mg PO QDAY 30 Days #30 07/09/19 Unknown Rx tablet. Famotidine [Pepcid] 20 mg PO BID #60 tablet 01/18/20 Unknown Rx Albuterol Mdi (or & Nicu Only) 2 puff IH QID PRN #8.5 gram 02/19/20 Unknown Rx [ProAir HFA Inhaler] Prednisone [predniSONE 10 mg 10 mg PO .TAPER #1 tab.ds.pk 02/19/20 Unknown Rx (6-Day Pack, 21 Tabs)] amLODIPine 10 mg PO DAILY #30 tab 05/20/20 Unknown Rx Albuterol Mdi (or & Nicu Only) 2 puff IH Q4H PRN #8.5 gram 12/29/20 Unknown Rx [ProAir HFA Inhaler] amLODIPine 10 mg PO DAILY #30 tab 07/30/21 Unknown Rx Acetaminophen [Non-Aspirin Extra 650 mg PO Q6HR PRN #30 tablet 01/18/22 Unknown Rx Strength] Esomeprazole Magnesium [NexIUM] 40 mg PO QDAY #30 capsule. 01/18/22 Unknown Rx Allergies Allergy/AdvReac Type Severity Reaction Status Date / Time sulfamethoxazole Allergy Itching Verified 07/03/22 16:57 [From Bactrim] trimethoprim [From Bactrim] Allergy Itching Verified 07/03/22 16:57 Heart Score - HEART Score History: Moderately suspicious EKG: Normal Age: 45-65 Risk factors: 1-2 risk factors Troponin: < normal limit HEART Score: 3 - EKG Read Time Time EKG Completed: 17:05 EKG Read Time: 17:10 (Sinus rhythm without ischemic changes) - Critical Actions Critical Actions: 0-3 pts:0.9-1.7%risk of adverse cardiac event.Candidate for discharge ED Review of Systems Comment: All other systems reviewed and negative Constitutional: denies: chills, fever, malaise, weakness Eyes: denies: vision change ENT: denies: throat pain, congestion Respiratory: see HPI, shortness of breath. denies: cough, orthopnea, SOB with exertion, SOB at rest, wheezing Cardiovascular: as per HPI. denies: dyspnea on exertion, edema, syncope Endocrine: denies: intolerance to cold, intolerance to heat, increased hunger, increased thirst, unexplained weight gain, unexplained weight loss Gastrointestinal: denies: abdominal pain, nausea, vomiting, diarrhea, constipation, hematemesis Genitourinary: denies: urgency, dysuria, frequency Musculoskeletal: denies: back pain, myalgia Skin: denies: rash Neurological: denies: headache, weakness, numbness, paresthesias, confusion, abnormal gait Psychiatric: anxiety (Only during the most severe episode of pain). denies: depression Hematological/Lymphatic: denies: easy bleeding, easy bruising ED Past Medical Hx - Past Medical History Hx Hypertension: Yes Hx CVA: No Hx Heart Attack/AMI: No Hx Congestive Heart Failure: No Hx Diabetes: No (Last hemoglobin A1c was borderline per his report) Hx Deep Vein Thrombosis: No Hx Pulmonary Embolism: No Hx GERD: No Hx Asthma: Yes - Surgical History Additional Surgical History: hernia repair - Social History Smoking Status: Never Smoker - Medications Home Medications: Home Medications Medication Instructions Recorded Confirmed Last Taken Type Fluticasone [Flonase] 1 spray NS QDAY #1 bottle 12/02/15 01/01/16 12/30/15 06:00 Rx amLODIPine 10 mg PO DAILY #30 tab 08/01/18 Unknown Rx Aspirin EC [Ecotrin] 325 mg PO QDAY 30 Days #30 07/09/19 Unknown Rx tablet. Famotidine [Pepcid] 20 mg PO BID #60 tablet 03/20/20 Unknown Rx Albuterol Mdi (or & Nicu Only) 2 puff IH QID PRN #8.5 gram 02/19/20 Unknown Rx [ProAir HFA Inhaler] Prednisone [predniSONE 10 mg 10 mg PO .TAPER #1 tab.ds.pk 02/19/20 Unknown Rx (6-Day Pack, 21 Tabs)] amLODIPine 10 mg PO DAILY #30 tab 05/20/20 Unknown Rx Albuterol Mdi (or & Nicu Only) 2 puff IH Q4H PRN #8.5 gram 12/29/20 Unknown Rx [ProAir HFA Inhaler] amLODIPine 10 mg PO DAILY #30 tab 07/30/21 Unknown Rx Acetaminophen [Non-Aspirin Extra 650 mg PO Q6HR PRN #30 tablet 01/18/22 Unknown Rx Strength] Esomeprazole Magnesium [NexIUM] 40 mg PO QDAY #30 capsule.dr 01/18/22 Unknown Rx ED Physical Exam - General Limitations: No Limitations General appearance: alert, in no apparent distress - Head Head exam: Present: atraumatic, normocephalic - Eye Eye exam: Present: normal appearance, PERRL. Absent: scleral icterus, conjunctival injection - ENT ENT exam: Present: mucous membranes moist - Neck Neck exam: Present: normal inspection, full ROM - Respiratory Respiratory exam: Present: normal lung sounds bilaterally. Absent: respiratory distress, wheezes, rales, rhonchi - Cardiovascular Cardiovascular Exam: Present: regular rate, normal rhythm, normal heart sounds - GI/Abdominal GI/Abdominal exam: Present: soft, guarding, rebound, normal bowel sounds. Absent: distended, tenderness, pulsatile mass - Extremities Exam Extremities exam: Present: normal inspection. Absent: pedal edema, calf tenderness - Neurological Exam Neurological exam: Present: alert, oriented X3, CN II-XII intact, normal gait, motor sensory deficit, reflexes normal - Psychiatric Psychiatric exam: Present: normal affect, normal mood - Skin Skin exam: Present: warm, dry, intact ED Course - Reevaluation(s) Reevaluation #1: 07/04/22 01:14 Given patient's palpitations I did place him on telemetry monitor for the remainder of his stay. Reevaluation #2: 07/04/22 03:30 Minimal chest pain. No episodes of palpitations while here. Troponin normal x3 EKG normal. .\\ 07/04/22 03:32 MATTHEW score - Matthew Score Age > 65: (0) No Aspirin use within the Past 7 Days: (0) No 3 or more CAD Risk Factors: (0) No 2 or more Angina events in past 24 hrs: (0) No Known CAD with more than 50% Stenosis: (0) No Elevated Cardiac Markers: (0) No ST Deviation Greater than 0.5mm: (0) No MATTHEW Score: 0 ED Medical Decision Making - Lab Data Result diagrams: 07/03/22 18:13 07/03/22 18:13 - EKG Data Interpretation: normal EKG 07/04/22 00:37 Sinus rhythm at 75 bpm without ischemic changes - Radiology Data Radiology results: report reviewed, [place] [address] XRay Report Signed Patient: ROCHELLE MORSE MR#: [id number] : 1975 Acct:[id number] Age/Sex: 46 / M ADM Date: 07/03/22 Loc: ED Attending Dr: Ordering Physician: ED MD EMILY Date of Service: 07/03/22 Procedure(s): XR chest routine 2V Accession Number(s): [id number] cc: ED MD EMILY Fluoro Time In Minutes: CHEST 2 VIEWS INDICATION / CLINICAL INFORMATION: CP. Chest pain COMPARISON: 05/21/22 FINDINGS: SUPPORT DEVICES: None. HEART / MEDIASTINUM: No significant abnormality. LUNGS / PLEURA: No significant pulmonary or pleural abnormality. No pneumothorax. ADDITIONAL FINDINGS: No significant additional findings. IMPRESSION: 1. No acute findings. Signer Name: Last Rader MD Signed: 07/03/2022 5:31 PM Workstation Name: [id number] Transcribed By: DT Dictated By: Augustine Rader MD Electronically Authenticated By: Augustine Rader MD Signed Date/Time: 07/03/221730 DD/ 30 TD/TT: Print Cancel - Medical Decision Making 46-year-old male with heart score of 3 and MATTHEW score of 0. Has child life assistant and primary care, so will have him follow-up outpatient this week. - Differential Diagnosis Chest pain. Cardiac versus pulmonary versus musculoskeletal versus GI etio ED Disposition Clinical Impression: Chest pain Disposition: 01 HOME / SELF CARE / HOMELESS Is pt being admited?: No Condition: Stable Instructions: Nonspecific Chest Pain, Adult Additional Instructions: Follow-up with your primary care doctor and child life assistant this week. Strict adherence to your amlodipine. Aspirin 325 mg daily. Return if any worsening of symptoms. Referrals: PRIMARY MD MARIA E [Primary Care Provider] - 3-5 Days Aline ESPANA MD [Referring] - 3-5 Days MICHAEL BRYANT MD [Staff Physician] - 3-5 Days Forms: Work/School Release Form(ED) Time of Disposition: 04:00 <GIBRAN MONTES DE OCA - Last Filed: 07/05/22 06:00> ED Review of Systems ROS: Stated complaint: CHEST PAIN Other details as noted in HPI ED Course Vital Signs 07/03/22 07/04/22 07/04/22 16:59 01:09 01:13 Temperature 98.1 F Pulse Rate 84 62 63 Respiratory 22 17 11 L Rate Blood Pressure Blood Pressure 156/92 152/94 [Right] O2 Sat by Pulse 97 100 Oximetry 07/04/22 07/04/22 07/04/22 01:30 02:00 02:12 Temperature Pulse Rate 62 61 56 L Respiratory 19 15 12 Rate Blood Pressure 152/94 152/94 Blood Pressure 134/82 [Right] O2 Sat by Pulse 100 Oximetry 07/04/22 07/04/22 02:30 03:00 Temperature Pulse Rate 58 L 61 Respiratory 16 15 Rate Blood Pressure 134/82 145/87 Blood Pressure [Right] O2 Sat by Pulse Oximetry ED Medical Decision Making - Lab Data Result diagrams: 07/03/22 18:13 07/03/22 18:13 Critical care attestation.: If time is entered above; I have spent that time in minutes in the direct care of this critically ill patient, excluding procedure time. ED Disposition Is pt being admited?: No
[2022-07-04 03:20] VITALS: BP 145/87
--- NOTE | 2022-07-05 16:52 | Electrocardiograph Report ---
[facility] Test Date: 2022-07-03 Test Time: 17:05:08 Pat Name: ROCHELLE MORSE Department: Room: Gender: M Information Services Vice President: MARISOL : 1975 Requested By: GIBRAN MONTES DE OCA Order Number: [id number] Reading MD: Ethel Morse Measurements Intervals [place] Rate: 75 P: 18 FL: 176 QRS: -6 QRSD: 110 T: 37 QT: 397 QTc: 443 Interpretive Statements Sinus rhythm Compared to ECG 05/21/2022 19:23:14 No significant changes Electronically Signed On 07-05-2022 16:52:32 EDT by Ethel Morse
--- NOTE | 2022-07-05 16:55 | Electrocardiograph Report ---
[facility] Test Date: 2022-07-04 Test Time: 01:03:10 Pat Name: ROCHELLE MORSE Department: Room: Gender: M College Associate: BOZENA : 1975 Requested By: GIBRAN MONTES DE OCA Order Number: [id number] Reading MD: Ethel Morse Measurements Intervals [place] Rate: 57 P: 15 [place]: 194 QRS: -29 QRSD: 116 T: 45 QT: 422 QTc: 412 Interpretive Statements Sinus bradycardia Nonspecific intraventricular conduction delay Compared to ECG 07/03/2022 17:05:08 No significant change Electronically Signed On 07-05-2022 16:55:23 EDT by Ethel Morse
== END 2022-07-04 06:22 | disposition home or self-care (01) ==
LOC: ED 16:56
DX: R07.89 Other chest pain (principal); I10 Essential (primary) hypertension; J45.909 Unspecified asthma, uncomplicated; Z88.2 Allergy status to sulfonamides; Z88.8 Allergy status to other drugs, medicaments and biological substances; Z79.82 Long term (current) use of aspirin; Z79.899 Other long term (current) drug therapy
CPT/HCPCS: 36415; 71046; 80053; 84484; 85025; 93005; 99284

== ENCOUNTER → 2022-07-30 | Emergency (ER) | payer SELFPAY ==
[2022-07-30 17:45] VITALS: BP 143/92
--- NOTE | 2022-07-30 18:30 | XRay Report ---
CHEST 2 VIEWS INDICATION / CLINICAL INFORMATION: Lightheadedness/Dizziness. COMPARISON: 07/03/2022 FINDINGS: SUPPORT DEVICES: None. HEART / MEDIASTINUM: No significant abnormality. LUNGS / PLEURA: No significant pulmonary or pleural abnormality. No pneumothorax. ADDITIONAL FINDINGS: No significant additional findings. IMPRESSION: 1. No acute findings. Signer Name: Aditya Zamora DO Signed: 07/30/2022 6:26 PM Workstation Name: [id number]
[2022-07-30 19:30] LABS: Basophils # (Auto) 0.1 K/mm3 (0.0-0.1); Basophils % (Auto) 1.3 % (0.0-1.8); Eosinophils # (Auto) 0.1 K/mm3 (0.0-0.4); Eosinophils % (Auto) 1.5 % (0.0-4.3); Hematocrit 46.1 % (35.5-45.6); Hemoglobin 15.6 gm/dl (11.8-15.2); Lymphocytes # (Auto) 1.8 K/mm3 (1.2-5.4); Lymphocytes % (Auto) 26.2 % (13.4-35.0); Mean Corpuscular HGB Conc 34 % (32-34); Mean Corpuscular Volume 85 fl (84-94); Monocytes # (Auto) 0.4 K/mm3 (0.0-0.8); Monocytes % (Auto) 6.2 % (0.0-7.3); Platelet Count 332 K/mm3 (140-440); Red Blood Count 5.42 M/mm3 (3.65-5.03); Red Cell Distribution Width 15.1 % (13.2-15.2)
[2022-07-30 19:44] LABS: Alanine Aminotransferase 33 units/L (7-56); Albumin 5.1 g/dL (3.9-5); BUN/Creatinine Ratio 13; Blood Urea Nitrogen 14 mg/dL (9-20); Calcium 9.9 mg/dL (8.4-10.2); Hemolysis Index 3; INR 0.86 (0.87-1.13)
== END ==
LOC: ED 17:30
DX: R42 Dizziness and giddiness (principal); Z53.21 Procedure and treatment not carried out due to patient leaving prior to being seen by health care provider
CPT/HCPCS: 36415; 71046; 80053; 84484; 85025; 85610